=== PATIENT | female | born 1960 | race Native Hawaiian/Other Pacific Islander ===

== ENCOUNTER 2020-04-20 14:00 | Outpatient (RCR) | payer OTHER, SELFPAY ==
--- NOTE | 2020-03-30 15:58 | MHC.PT.PR ---
[facility] [place] [facility] [place] [facility] [place] [facility] [address] [place] [address] [phone] F: [phone] F: [phone] F: [phone] F: [phone] Physical Therapy Progress Note Diagnosis: Internal derangement of R shoulder Date of Surgery: NA Date of Evaluation: 01/06/20 Treatments to Date: 9 Cancellations to Date: 0 No Shows to Date: 0 Subjective: Patient reporting feeling a little better, has a little soreness at the distal humerus. Has received her tens unit and is using appropriately without questions. 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 Reports that repetitive motions aggravate it. She wanted an progress note to be sent to referring MD. We will plan for 4 more visits through March at this time. Patient continues to verbalize that she would like further imaging but would like to continue with PT as she does feel like she is making some progress. Progressed with speed francisco strengthening today. Reporting more neck pain and low back pain now as well, understands that this may also be due to her job. She has bought a tens unit for home use and has been educated on an HEP. PT Plan: Frequency and Duration: The patient will be seen Treatment Plan: Reviewed/ Agreed with Student Documentation: Therapist: Thank you once again for your referral.
--- NOTE | 2020-04-20 16:04 | MHC.PT.DC ---
[facility] [place] Office [place] [facility] [place] Office [address] [phone] F: [phone] F: [phone] F: [phone] F: [phone] Physical Therapy Discharge Report Diagnosis: Internal derangement of R shoulder Date of Surgery: NA Date of Evaluation: 01/06/20 Date of Discharge: 04/20/20 Treatments to Date: 12 Cancellations to Date: 2 No Shows to Date: 0 Discharge Status: Achieved Goals Improved Function Independent with HEP Recommend MD Follow-up Discharge Summary: Patient with improvements in ROM at times. Demos AROM flexion 145, abduction 165, ER 52 degs in 45 degs abduction, IR at 45 degs abduction to 70 degs. Has a harder time with ER and abduction still but no longer has pins/needles or numbness. Continues to have pain and recommending follow up with MD at this time for pain management. 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 DC to HEP at this time with follow up to MD recommended. Has stim unit and HEP for home. Electronically signed by: Radha Chatman PT Please sign and return to therapist. Thank you for your referral.
== END 2020-04-20 16:04 | disposition home or self-care (01) ==
LOC: HO.PTCHIC 14:00
PROVIDERS: PCP Internal Medicine; Visit Provider Orthopaedic Surgery
DX: M24.811 Other specific joint derangements of right shoulder, not elsewhere classified (principal)
CPT/HCPCS: 97014; 97110; 97140

== ENCOUNTER 2022-01-10 12:11 | Outpatient (REF) | payer OTHER, SELFPAY ==
--- NOTE | ~2022-01-10 | XR_ITS ---
EXAMINATION: XR ANKLE, RIGHT XR FOOT, RIGHT CLINICAL INFORMATION: M25.571 - Pain in right ankle and joints of right foot COMPARISON: None TECHNIQUE: 2 views right ankle, 2 views right foot, and a lateral view of the combined right ankle and foot are obtained for a total of 5 views. FINDINGS: No fracture, dislocation, or destructive process. Normal bony mineralization. The malleoli are intact. The ankle mortise is symmetric. Talar dome shows no osteochondral lesion. No visible ankle capsular effusion. The subtalar joint is normal. The retrocalcaneal recess is preserved. There is a bulky posterior calcaneal spur. Midfoot and forefoot show no focal joint narrowing or erosive change. XR/XR ankle RT min 3V IMPRESSION: -Bulky posterior calcaneal spur. -No focal joint narrowing or erosive change.
--- NOTE | ~2022-01-10 | XR_ITS ---
EXAMINATION: XR LUMBAR SPINE XR SACROILIAC JOINTS CLINICAL INFORMATION: Low back pain. COMPARISON: None TECHNIQUE: Lumbar spine is imaged in 6 views including oblique projections. The SI joints are imaged in 3 views. There are a total of 9 views. FINDINGS: There is normal lumbar segmentation with 5 nonrib-bearing lumbar vertebrae of normal height and normal lumbar lordosis. No lumbar vertebral compression, spondylolisthesis, focal disc narrowing, erosive change, or destructive process. There is some mild anterior lower lumbar vertebral spurring. Oblique view show no spondylolysis. The SI joints and sacrum are unremarkable. There is no SI joint or erosive change or ankylosis or diastases. No subchondral sclerosis. XR/XR sacroiliac joint min 3V IMPRESSION: -Mild lower lumbar vertebral spurring. No vertebral compression, spondylolisthesis, or focal disc narrowing. -Unremarkable SI joints.
--- NOTE | ~2022-01-10 | XR_ITS ---
EXAMINATION: XR ANKLE, LEFT XR FOOT, LEFT CLINICAL INFORMATION: M25.572 - Pain in left ankle and joints of left foot COMPARISON: None TECHNIQUE: The left ankle is imaged in 3 views. The left foot is imaged in 3 views. There are a total of 6 views. FINDINGS: Left ankle shows no fracture or dislocation or destructive process. The ankle mortise is symmetric. Talar dome shows no osteochondral lesion. There is no joint narrowing. No visible capsular effusion. There is bulky posterior calcaneal spur. The retrocalcaneal recess is preserved. Left foot shows no fracture or dislocation or destructive process. There is no focal joint narrowing or erosive changes. XR/XR foot LT min 3V IMPRESSION: -Bulky posterior calcaneal spur. -No focal joint narrowing or erosive change.
--- NOTE | ~2022-01-10 | XR_ITS ---
EXAMINATION: XR ANKLE, LEFT XR FOOT, LEFT CLINICAL INFORMATION: M25.572 - Pain in left ankle and joints of left foot COMPARISON: None TECHNIQUE: The left ankle is imaged in 3 views. The left foot is imaged in 3 views. There are a total of 6 views. FINDINGS: Left ankle shows no fracture or dislocation or destructive process. The ankle mortise is symmetric. Talar dome shows no osteochondral lesion. There is no joint narrowing. No visible capsular effusion. There is bulky posterior calcaneal spur. The retrocalcaneal recess is preserved. Left foot shows no fracture or dislocation or destructive process. There is no focal joint narrowing or erosive changes. XR/XR ankle LT min 3V IMPRESSION: -Bulky posterior calcaneal spur. -No focal joint narrowing or erosive change.
--- NOTE | ~2022-01-10 | XR_ITS ---
EXAMINATION: XR LUMBAR SPINE XR SACROILIAC JOINTS CLINICAL INFORMATION: Low back pain. COMPARISON: None TECHNIQUE: Lumbar spine is imaged in 6 views including oblique projections. The SI joints are imaged in 3 views. There are a total of 9 views. FINDINGS: There is normal lumbar segmentation with 5 nonrib-bearing lumbar vertebrae of normal height and normal lumbar lordosis. No lumbar vertebral compression, spondylolisthesis, focal disc narrowing, erosive change, or destructive process. There is some mild anterior lower lumbar vertebral spurring. Oblique view show no spondylolysis. The SI joints and sacrum are unremarkable. There is no SI joint or erosive change or ankylosis or diastases. No subchondral sclerosis. XR/XR lumbar spine 4V min IMPRESSION: -Mild lower lumbar vertebral spurring. No vertebral compression, spondylolisthesis, or focal disc narrowing. -Unremarkable SI joints.
--- NOTE | ~2022-01-10 | XR_ITS ---
EXAMINATION: XR ANKLE, RIGHT XR FOOT, RIGHT CLINICAL INFORMATION: M25.571 - Pain in right ankle and joints of right foot COMPARISON: None TECHNIQUE: 2 views right ankle, 2 views right foot, and a lateral view of the combined right ankle and foot are obtained for a total of 5 views. FINDINGS: No fracture, dislocation, or destructive process. Normal bony mineralization. The malleoli are intact. The ankle mortise is symmetric. Talar dome shows no osteochondral lesion. No visible ankle capsular effusion. The subtalar joint is normal. The retrocalcaneal recess is preserved. There is a bulky posterior calcaneal spur. Midfoot and forefoot show no focal joint narrowing or erosive change. XR/XR foot RT min 3V IMPRESSION: -Bulky posterior calcaneal spur. -No focal joint narrowing or erosive change.
[2022-01-10 12:45] LABS: MANUAL DIFF FLAG NO
[2022-01-10 13:22] LABS: Basophils Percent Auto 0.3 % (0-2); Eosinophils Absolute Auto 0.1 X10*3/uL (0.0-0.4); Hemoglobin 13.6 g/dl (12.0-16.0); Imm Gran Abs Auto 0.08 X10*3/uL (0.00-0.03); Imm Gran Pct Auto 1.4 % (0.0-0.4); Lymphocytes Absolute Auto 1.6 X10*3/uL (1.2-4.9); Lymphocytes Percent Auto 26.9 % (20-40); Mean Corpuscular HGB Conc 32.4 g/dl (31.0-35.0); Mean Corpuscular Hemoglobin 29.8 pg (27.0-33.0); Mean Corpuscular Volume 92.1 fL (80.0-98.0); Mean Platelet Volume 8.9 fL (9.4-12.3); Monocytes Absolute Auto 0.7 X10*3/uL (0.1-1.2); Monocytes Percent Auto 11.3 % (2-11); Neutrophils Absolute Auto 3.5 x10*3/uL (2.0-8.3); Neutrophils Percent Auto 59.1 % (45-73); Platelet Count 354 X10*3/uL (160-400); Red Blood Count 4.56 X10*6/uL (4.20-5.50); Red Cell Distribution Width 12.9 % (11.0-16.0); White Blood Count 5.8 X10*3/uL (4.8-10.8)
[2022-01-10 13:46] LABS: Alanine Aminotransferase 24 U/L (0-31); Albumin Level 4.3 g/dL (3.5-5.0); Alkaline Phosphatase 77 U/L (39-117); Anion Gap 17 (12-20); Aspartate Amino Transferase 24 U/L (5-31); Bilirubin Total 0.3 mg/dL (0.0-1.0); Blood Urea Nitrogen 12 mg/dL (9-16); C Reactive Protein 2.18 mg/dL (< or = 0.50); Calcium 9.5 mg/dL (8.4-10.2); Carbon Dioxide 27 mmol/L (22-29); Chloride 102 mmol/L (96-108); Estimated Glomerular Filt Rate > 60; Glucose Random 94 mg/dL (60-115); Potassium 4.1 mmol/L (3.3-5.1); Sodium 142 mmol/L (135-145); Total Protein 7.7 g/dL (6.5-8.0); Uric Acid 7.4 mg/dL (2.4-5.7)
[2022-01-10 14:06] LABS: Erythrocyte Sedimentation Rate 78 MM/HR (0-20)
[2022-01-10 14:16] LABS: Rheumatoid Factor < 15.0 IU/mL (<15.0)
[2022-01-11 05:22] LABS: HBS Num1 0.84 mIU/mL (0-7.99); HBc Num1 0.56 S/CO (0.00-0.79); HBsAGNum1 0.21 S/CO (0.00-0.99); Hepatitis A Antibody IgM 0.19 Index (0-0.79); Hepatitis B Core Antibody Nonreactive (Nonreactive); Hepatitis B Surface Antigen Negative (Negative); ~HepC Num1 0.08 S/CO (0.00-0.79); ~Hepatitis A Antibody IgM Nonreactive (Nonreactive); ~Hepatitis B Surface Antibody NONREACTIVE (Nonreactive); ~Hepatitis C Antibody Nonreactive (Nonreactive)
[2022-01-11 12:18] LABS: Anti DNA DS Antibody 1 IU/mL
[2022-01-11 16:52] LABS: Complement C3 167 mg/dL (83-193)
[2022-01-12 13:32] LABS: Anti Nuclear Antibody Screen NEGATIVE (NEGATIVE)
[2022-01-12 16:32] LABS: Cyclic Citrullinated Peptide 25 UNITS
[2022-01-13 02:56] LABS: TS Negative Control Passed; TS Panel A 0; TS Panel B 0; TS Positive Control Passed; TSpotTB Negative (Negative)
[2022-01-16 11:56] LABS: HLA B27 Negative (Negative)
== END 2022-01-10 12:12 | disposition home or self-care (01) ==
LOC: HO.LAB 12:11
PROVIDERS: PCP Internal Medicine; Visit Provider Student in an Organized Health Care Education/Training Program
DX: Z11.7 Encounter for testing for latent tuberculosis infection (principal); Z11.59 Encounter for screening for other viral diseases; Z51.81 Encounter for therapeutic drug level monitoring; Z79.899 Other long term (current) drug therapy; L40.50 Arthropathic psoriasis, unspecified; M25.542 Pain in joints of left hand; M54.50 Low back pain, unspecified; M25.571 Pain in right ankle and joints of right foot; M25.572 Pain in left ankle and joints of left foot
CPT/HCPCS: 36415; 72110; 72202; 73610; 73630; 80053; 84550; 85025; 85652; 86038; 86039; 86140; 86160; 86200; 86225; 86431; 86481; 86704; 86706; 86709; 86803; 86812; 87340; 99202

== ENCOUNTER → 2022-01-31 11:12 | Outpatient (BNVA) | payer OTHER, SELFPAY | PROVIDERS: PCP Internal Medicine; Visit Provider Student in an Organized Health Care Education/Training Program | DX: L40.50 Arthropathic psoriasis, unspecified (principal); M54.50 Low back pain, unspecified; G89.29 Other chronic pain; R76.8 Other specified abnormal immunological findings in serum | CPT/HCPCS: 99212 ==

== ENCOUNTER 2022-05-16 14:18 | Outpatient (REF) | payer OTHER, SELFPAY ==
[2022-05-16 14:38] LABS: MANUAL DIFF FLAG NO
[2022-05-16 15:01] LABS: Basophils Absolute Auto 0.1 X10*3/uL (0.0-0.2); Basophils Percent Auto 0.6 % (0-2); Eosinophils Absolute Auto 0.3 X10*3/uL (0.0-0.4); Eosinophils Percent Auto 2.7 % (0-4); Hematocrit 41.9 % (37.0-47.0); Hemoglobin 13.7 g/dl (12.0-16.0); Imm Gran Abs Auto 0.09 X10*3/uL (0.00-0.03); Imm Gran Pct Auto 0.8 % (0.0-0.4); Lymphocytes Absolute Auto 3.2 X10*3/uL (1.2-4.9); Lymphocytes Percent Auto 29.9 % (20-40); Mean Corpuscular HGB Conc 32.7 g/dl (31.0-35.0); Mean Corpuscular Hemoglobin 30.3 pg (27.0-33.0); Mean Corpuscular Volume 92.7 fL (80.0-98.0); Mean Platelet Volume 9.3 fL (9.4-12.3); Monocytes Absolute Auto 0.6 X10*3/uL (0.1-1.2); Monocytes Percent Auto 5.5 % (2-11); Neutrophils Absolute Auto 6.6 x10*3/uL (2.0-8.3); Neutrophils Percent Auto 60.5 % (45-73); Platelet Count 346 X10*3/uL (160-400); Red Blood Count 4.52 X10*6/uL (4.20-5.50); Red Cell Distribution Width 13.5 % (11.0-16.0); White Blood Count 10.8 X10*3/uL (4.8-10.8)
[2022-05-16 15:50] LABS: Erythrocyte Sedimentation Rate 34 MM/HR (0-20)
[2022-05-16 16:09] LABS: Alanine Aminotransferase 28 U/L (0-31); Albumin Level 4.1 g/dL (3.5-5.0); Alkaline Phosphatase 73 U/L (39-117); Anion Gap 15 (12-20); Aspartate Amino Transferase 27 U/L (5-31); Bilirubin Total 0.4 mg/dL (0.0-1.0); Blood Urea Nitrogen 16 mg/dL (9-16); C Reactive Protein 0.58 mg/dL (< or = 0.50); Calcium 9.2 mg/dL (8.4-10.2); Carbon Dioxide 29 mmol/L (22-29); Chloride 103 mmol/L (96-108); Estimated Glomerular Filt Rate > 60; Glucose Random 115 mg/dL (60-115); Magnesium 1.8 mg/dL (1.6-2.6); Potassium 4.5 mmol/L (3.3-5.1); Sodium 142 mmol/L (135-145)
== END 2022-05-16 14:19 | disposition home or self-care (01) ==
LOC: HO.LAB 14:18
PROVIDERS: PCP Internal Medicine; Visit Provider Student in an Organized Health Care Education/Training Program
DX: L40.50 Arthropathic psoriasis, unspecified (principal)
CPT/HCPCS: 36415; 80053; 83735; 85025; 85652; 86140

== ENCOUNTER → 2022-05-23 10:45 | Outpatient (BNVA) | payer OTHER, SELFPAY | PROVIDERS: PCP Internal Medicine; Visit Provider Student in an Organized Health Care Education/Training Program | DX: L40.50 Arthropathic psoriasis, unspecified (principal); M54.50 Low back pain, unspecified; R76.8 Other specified abnormal immunological findings in serum; G89.29 Other chronic pain; Z79.631 Long term (current) use of antimetabolite agent | CPT/HCPCS: 99212 ==

== ENCOUNTER 2022-06-28 15:32 | Outpatient (REF) | payer OTHER, SELFPAY ==
[2022-06-28 16:17] LABS: MANUAL DIFF FLAG NO
[2022-06-28 16:30] LABS: Basophils Absolute Auto 0.1 X10*3/uL (0.0-0.2); Basophils Percent Auto 0.4 % (0-2); Eosinophils Absolute Auto 0.2 X10*3/uL (0.0-0.4); Hematocrit 41.2 % (37.0-47.0); Imm Gran Abs Auto 0.11 X10*3/uL (0.00-0.03); Imm Gran Pct Auto 0.7 % (0.0-0.4); Lymphocytes Absolute Auto 3.4 X10*3/uL (1.2-4.9); Lymphocytes Percent Auto 22.7 % (20-40); Mean Corpuscular Hemoglobin 30.6 pg (27.0-33.0); Mean Corpuscular Volume 90.2 fL (80.0-98.0); Mean Platelet Volume 8.7 fL (9.4-12.3); Monocytes Absolute Auto 0.9 X10*3/uL (0.1-1.2); Monocytes Percent Auto 6.1 % (2-11); Neutrophils Absolute Auto 10.3 x10*3/uL (2.0-8.3); Neutrophils Percent Auto 69.1 % (45-73); Platelet Count 440 X10*3/uL (160-400); Red Blood Count 4.57 X10*6/uL (4.20-5.50); Red Cell Distribution Width 14.2 % (11.0-16.0)
[2022-06-28 17:05] LABS: Alanine Aminotransferase 20 U/L (0-31); Albumin Level 4.1 g/dL (3.5-5.0); Alkaline Phosphatase 74 U/L (39-117); Anion Gap 15 (12-20); Aspartate Amino Transferase 19 U/L (5-31); Bilirubin Total 0.4 mg/dL (0.0-1.0); Blood Urea Nitrogen 11 mg/dL (9-16); C Reactive Protein 0.89 mg/dL (< or = 0.50); Calcium 9.3 mg/dL (8.4-10.2); Carbon Dioxide 26 mmol/L (22-29); Chloride 104 mmol/L (96-108); Estimated Glomerular Filt Rate > 60; Glucose Random 105 mg/dL (60-115); Potassium 3.6 mmol/L (3.3-5.1); Sodium 141 mmol/L (135-145); Total Protein 6.7 g/dL (6.5-8.0)
[2022-06-28 17:08] LABS: Erythrocyte Sedimentation Rate 46 MM/HR (0-20)
== END 2022-06-28 15:33 | disposition home or self-care (01) ==
LOC: HO.LAB 15:32
PROVIDERS: PCP Student in an Organized Health Care Education/Training Program; Visit Provider Student in an Organized Health Care Education/Training Program
DX: Z79.631 Long term (current) use of antimetabolite agent (principal)
CPT/HCPCS: 36415; 80053; 85025; 85652; 86140

== ENCOUNTER → 2022-07-27 10:48 | Outpatient (BNVA) | payer OTHER, SELFPAY | PROVIDERS: PCP Family Medicine; Visit Provider Student in an Organized Health Care Education/Training Program | DX: L40.50 Arthropathic psoriasis, unspecified (principal); M54.50 Low back pain, unspecified; R76.8 Other specified abnormal immunological findings in serum; R21 Rash and other nonspecific skin eruption; R07.81 Pleurodynia; G89.29 Other chronic pain; Z79.631 Long term (current) use of antimetabolite agent | CPT/HCPCS: 99212 ==

== ENCOUNTER 2023-01-08 13:20 | Outpatient (REF) | payer OTHER, SELFPAY ==
[2023-01-08 13:53] LABS: MANUAL DIFF FLAG NO
[2023-01-08 14:41] LABS: Basophils Absolute Auto 0.1 X10*3/uL (0.0-0.2); Basophils Percent Auto 0.5 % (0-2); Eosinophils Absolute Auto 0.2 X10*3/uL (0.0-0.4); Eosinophils Percent Auto 1.1 % (0-4); Hematocrit 39.5 % (37.0-47.0); Hemoglobin 13.3 g/dl (12.0-16.0); Imm Gran Abs Auto 0.21 X10*3/uL (0.00-0.03); Imm Gran Pct Auto 1.4 % (0.0-0.4); Lymphocytes Absolute Auto 3.7 X10*3/uL (1.2-4.9); Lymphocytes Percent Auto 24.6 % (20-40); Mean Corpuscular HGB Conc 33.7 g/dl (31.0-35.0); Mean Corpuscular Hemoglobin 32.1 pg (27.0-33.0); Mean Corpuscular Volume 95.4 fL (80.0-98.0); Monocytes Absolute Auto 0.8 X10*3/uL (0.1-1.2); Monocytes Percent Auto 5.4 % (2-11); Platelet Count 510 X10*3/uL (160-400); Red Blood Count 4.14 X10*6/uL (4.20-5.50); Red Cell Distribution Width 14.2 % (11.0-16.0); White Blood Count 14.9 X10*3/uL (4.8-10.8)
[2023-01-08 15:11] LABS: Alanine Aminotransferase 23 U/L (0-31); Albumin Level 4.1 g/dL (3.5-5.0); Alkaline Phosphatase 68 U/L (39-117); Anion Gap 12 (12-20); Aspartate Amino Transferase 20 U/L (5-31); Bilirubin Total 0.2 mg/dL (0.0-1.0); Blood Urea Nitrogen 12 mg/dL (9-16); C Reactive Protein 0.81 mg/dL (< or = 0.50); Calcium 9.6 mg/dL (8.4-10.2); Carbon Dioxide 30 mmol/L (22-29); Chloride 100 mmol/L (96-108); Estimated Glomerular Filt Rate > 60; Glucose Random 99 mg/dL (60-115); Potassium 3.1 mmol/L (3.3-5.1); Sodium 139 mmol/L (135-145); Total Protein 7.3 g/dL (6.5-8.0)
[2023-01-08 15:25] LABS: Erythrocyte Sedimentation Rate 60 MM/HR (0-20)
== END 2023-01-08 13:21 | disposition home or self-care (01) ==
LOC: HO.LAB 13:20
PROVIDERS: Visit Provider Student in an Organized Health Care Education/Training Program
DX: Z79.631 Long term (current) use of antimetabolite agent (principal)
CPT/HCPCS: 36415; 80053; 85025; 85652; 86140

== ENCOUNTER 2023-01-10 11:38 | Outpatient (REF) | payer OTHER, SELFPAY | END 2023-01-10 11:39 | disposition home or self-care (01) | LOC: HO.LAB 11:38 | PROVIDERS: PCP Family Medicine; Visit Provider Student in an Organized Health Care Education/Training Program | DX: L40.50 Arthropathic psoriasis, unspecified (principal); R76.8 Other specified abnormal immunological findings in serum; R22.1 Localized swelling, mass and lump, neck; Z79.631 Long term (current) use of antimetabolite agent; Z79.899 Other long term (current) drug therapy | CPT/HCPCS: 80145; 83520; 99212 ==

== ENCOUNTER 2023-01-10 11:38 | Outpatient (AMB) | payer OTHER, SELFPAY ==
--- NOTE | 2023-01-10 11:41 | A.OFFVIS_ITS ---
Intake Vital Signs 3 01/10/23 11:42 Height 5 ft 4 in Weight 249 lb 1.957 oz BMI 42.8 BP 126/78 Blood Pressure Location Rt brachial Position Sitting Temp 98.1 F Temp Source Skin Intake Visit Reasons: PsA Intake Note: Pt seen today for PsA follow up. Reports intermittent joint pain, using trulicity for weight loss Director Television Required: No Accompanied by: Self / Same As Patient Allergies No Known Allergies Allergy (Unverified 01/10/23 11:44) Medication List - Last Reconciled 01/10/23 by Dain Escudero MD adalimumab (Humira Pen) 40 mg (0.8 mL) subcut QWEEK albuterol sulfate 90 mcg/actuation (ProAir HFA) inhalation atorvastatin 20 mg PO DAILY cyclobenzaprine 5 mg PO BEDTIME PRN dulaglutide (Trulicity) 1.5 mg subcut QWEEK folic acid 1 mg PO DAILY hydrochlorothiazide 12.5 mg PO DAILY hydrochlorothiazide 25 mg PO DAILY losartan 25 mg PO DAILY methotrexate sodium 15 mg (6 x 2.5 mg) PO QWEEK nicotine 1 patch transdermal DAILY trospium ER 60 mg PO DAILY HPI HPI Comments 2 History of Present Illness0 Details 62-year-old female with psoriasis and ps oriatic arthritis presents for follow-up. She has been on Humira weekly since August, continues on methotrexate 6 tabs weekly as prescribed. States that she was doing well overall until 2-3 days ago when she developed pain and swelling of her right 4th toe. Denies any trauma or injury to the toe. In early November she developed erythema and warmth of her right leg. She was evaluated by her PCP and had another course of antibiotics for suspected cellulitis. This has been a recurrent problem. She has an appointment with vascular to do vascular studies of her legs. No psoriasis rashes currently.. She started Trulicity recently and has lost some weight. States that she has been feeling some swelling in her upper chest and bottom of her neck. She has a follow-up appointment soon with her PCP Initial history: This is a 61-year-old female with a past medical history of psoriasis (almost all her life) and psoriatic arthritis diagnosed in 2013, dyslipidemia who presents for evaluation of psoriatic arthritis. The condition started in 2013. She used to see , she was on sulfasalazine which failed, she was then started on Humira and was on it for a few years then it stopped working. She was then switched to Cosentyx and was on it for about 1 year then it stopped working. She was switched to Tremfya last year and was working well for her skin and joints. However her jewel blocker and sawyer changed and she is due to see a new jewel blocker and sawyer today. Her last dose of Tremfya was in October 2021. Currently patient states that she has migrating joint pains from her right index finger to her left index finger and sometimes her thumb. 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 She has low back pain worse with any activity. Back pain is worse in the morning associated with morning stiffness lasting 3-4 hours. Does not wake patient up from sleep. She takes Tylenol almost every day for generalized pain which provided some relief. She mentions having recurrent cellulitis of her lower extremities, she was prescribed cephalexin by Dermatology, has been on it for 3 months and hers cellulitis resolved PFSH Medical History Recurrent cellulitis of lower extremity Dyslipidemia Psoriasis Psoriatic arthritis Surgical History Hx of removal of cyst H/O breast biopsy Hx of cholecystectomy Family History Father No problems noted. 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 Review of Systems ENT Details: Swelling in her lower neck, upper chest Musc Reports arthralgias, Reports joint swelling and Reports stiffness Physical Exam Vital Signs: Last Vital Signs Temp 98.1 F 01/10/23 11:42 BP 126/78 01/10/23 11:42 BMI result Body Mass Index 42.8 Const General: cooperative, healthy appearing, comfortable and no acute distress Nutritional Appearance: obese morbidly obese Orientation/consciousness: patient oriented x3 Limitations: no limitations HEENT Head: Yes normocephalic and Yes atraumatic Mouth: Normal oral and palatal mucosa present Resp Effort & Inspection: normal respiratory effort and able to speak in complete sentences Auscultation: clear to auscultation bilaterally Cardio Rate: regular rate Rhythm: regular rhythm Heart sounds: S1 normal heart sound present and S2 normal heart sound present GI Inspection: No distended Palpation (GI): Soft to palpation and nontender Skin Other: No psoriasis patches today Neuro General: patient oriented x3 Extrem Other: Right 4th toe dactylitis No synovitis otherwise Results Reviewed Results Reviewed: Left knee MRI 02/10 Impression: findings consistent with prior lateral collateral ligament complex injury with persistent thickening and mildly increased signal intensity in proximal fibular collateral ligament. Minimal truncation of the free edge of the posterior horn medial meniscus. Small effusion. Small Schmidt's cyst. Grade 2 chondromalacia patella Assessment & Plan Assessment & Plan (1) Psoriatic arthritis: Comment: dx 2013 failed SSZ 2ry nonresponse to humira Failed Cosentyx Tremfya since 2020, then discontinued when her jewel blocker and sawyer changed Humira restarted 01/2022 advanced to weekly 09/12 MTX added 05/15 Code(s): L40.50 - Arthropathic psoriasis, unspecified Plan: 62-year-old female with psoriasis and psoriatic arthritis presents for follow- up. Patient has been doing well with no inflammatory arthritis until 2 days ago. She is on Humira 40 mg once weekly and methotrexate 15 mg once weekly. Over the last 2 days she has developed dactylitis of her right 4th toe. Will prescribe prednisone taper. Will check anti adalimumab antibodies. If patient is resistant to adalimumab will have to switch DMARDs Continue Humira 40 mg every other week and methotrexate 15 mg weekly and folic acid daily Labs before next visit in 3 months (2) Psoriasis: Code(s): L40.9 - Psoriasis, unspecified Plan: Psoriasis is well controlled on Humira 40 minute weekly and methotrexate 15 mg weekly (3) Cyclic citrullinated peptide (CCP) antibody positive: Code(s): R76.8 - Other specified abnormal immunological findings in serum Plan: Low titer positive anti CCP. However patient's inflammatory arthritis are more consistent was psoriatic arthritis with dactylitis. This can be due to long history of smoking. She quit smoking about 9 months ago. (4) On methotrexate therapy: Code(s): Z79.631 - [facility] (current) use of antimetabolite agent Plan: Side effects of methotrexate were discussed with the patient in detail including oral ulcers, elevated LFTs, abdominal discomfort, and possible pancytopenia is. Will monitor patient for side effects with frequent lab work. Advised patient to take folic acid daily to prevent complications of methotrexate. (5) Lump in neck: Code(s): R22.1 - Localized swelling, mass and lump, neck Plan: Follow-up with PCP Plan I spent 46 minutes reviewing patient's chart, evaluating patient, ordering diagnostic workup, counseling patient and documenting in the chart Orders: Orders 2 Complete Blood Count Auto Diff 3 Months L40.50 - Arthropathic psoriasis, unspecified Other Ref Test - [facility] Today Z51.81 - Encounter for therapeutic drug level monitoring, Z79.899 - Other [facility] (current) drug therapy Comprehensive Met. Panel 3 Months L40.50 - Arthropathic psoriasis, unspecified C Reactive Protein 3 Months L40.50 - Arthropathic psoriasis, unspecified Erythrocyte Sedimentation Rate 3 Months L40.50 - Arthropathic psoriasis, unspecified Medications: New 2 prednisone 10 mg PO DAILY 21 tabs 0RF Coding Level of Care Code Est Pt Level 5 (36891) Diagnoses Psoriatic arthritis L40.50 Psoriasis L40.9 Cyclic citrullinated peptide (CCP) antibody positive R76.8 On methotrexate therapy Z79.631 Lump in neck R22.1
[2023-01-10 11:42] VITALS: BP 126/78; TEMP 36.7; BMI 42.8
== END 2023-01-10 12:15 | disposition home or self-care (01) ==
PROVIDERS: PCP Family Medicine; Visit Provider Student in an Organized Health Care Education/Training Program
DX: L40.50 Arthropathic psoriasis, unspecified (principal); L40.9 Psoriasis, unspecified; R76.8 Other specified abnormal immunological findings in serum; Z79.631 Long term (current) use of antimetabolite agent; R22.1 Localized swelling, mass and lump, neck
CPT/HCPCS: 99215

== ENCOUNTER 2023-04-04 12:37 | Outpatient (REF) | payer OTHER, SELFPAY ==
[2023-04-04 12:45] LABS: MANUAL DIFF FLAG NO
[2023-04-04 13:36] LABS: Basophils Absolute Auto 0.1 X10*3/uL (0.0-0.2); Basophils Percent Auto 0.4 % (0-2); Eosinophils Absolute Auto 0.1 X10*3/uL (0.0-0.4); Hematocrit 41.5 % (37.0-47.0); Hemoglobin 13.5 g/dl (12.0-16.0); Imm Gran Abs Auto 0.12 X10*3/uL (0.00-0.03); Imm Gran Pct Auto 0.9 % (0.0-0.4); Lymphocytes Absolute Auto 3.3 X10*3/uL (1.2-4.9); Lymphocytes Percent Auto 23.6 % (20-40); Mean Corpuscular HGB Conc 32.5 g/dl (31.0-35.0); Mean Corpuscular Hemoglobin 31.9 pg (27.0-33.0); Mean Corpuscular Volume 98.1 fL (80.0-98.0); Monocytes Absolute Auto 0.7 X10*3/uL (0.1-1.2); Monocytes Percent Auto 5.2 % (2-11); Neutrophils Absolute Auto 9.6 x10*3/uL (2.0-8.3); Neutrophils Percent Auto 68.9 % (45-73); Platelet Count 490 X10*3/uL (160-400); Red Blood Count 4.23 X10*6/uL (4.20-5.50); Red Cell Distribution Width 14.1 % (11.0-16.0)
[2023-04-04 14:08] LABS: Alanine Aminotransferase 17 U/L (0-31); Albumin Level 4.1 g/dL (3.5-5.0); Alkaline Phosphatase 76 U/L (39-117); Anion Gap 13 (12-20); Aspartate Amino Transferase 18 U/L (5-31); Bilirubin Total 0.4 mg/dL (0.0-1.0); Blood Urea Nitrogen 14 mg/dL (9-16); Calcium 9.9 mg/dL (8.4-10.2); Carbon Dioxide 27 mmol/L (22-29); Chloride 106 mmol/L (96-108); Estimated Glomerular Filt Rate > 60; Glucose Random 89 mg/dL (60-115); Potassium 4.1 mmol/L (3.3-5.1); Sodium 142 mmol/L (135-145); Total Protein 7.7 g/dL (6.5-8.0)
[2023-04-04 14:16] LABS: Erythrocyte Sedimentation Rate 70 MM/HR (0-20)
== END 2023-04-04 12:38 | disposition home or self-care (01) ==
LOC: HO.LAB 12:37
PROVIDERS: PCP Family Medicine; Visit Provider Student in an Organized Health Care Education/Training Program
DX: L40.50 Arthropathic psoriasis, unspecified (principal)
CPT/HCPCS: 36415; 80053; 85025; 85652; 86140

== ENCOUNTER 2023-04-10 09:45 | Outpatient (AMB) | payer OTHER, SELFPAY ==
--- NOTE | 2023-04-10 09:53 | A.OFFVIS_ITS ---
Intake Vital Signs 04/10/23 09:55 Height 5 ft 4 in Weight 240 lb 4.862 oz BMI 41.2 BP 124/90 H Blood Pressure Location Lt brachial Position Sitting Pulse 91 Pulse Source Pulse Oximeter Temp 97 F Temp Source Skin Pulse Oximetry (%) 95 Oxygen Delivery Method Room Air Intake Visit Reasons: PsA Intake Note: Pt last seen 01/10/23, presents today for follow up and test results. Continues with Humira, MTX, and folic acid. Youth Accommodation Support Worker Required: No Accompanied by: Self / Same As Patient Allergies No Known Allergies Allergy (Unverified 04/10/23 09:58) Medication List - Last Reconciled 04/10/23 by Dain Escudero MD albuterol sulfate 90 mcg/actuation (ProAir HFA) inhalation atorvastatin 20 mg PO DAILY clotrimazole 1% appl topical DAILY clotrimazole-betamethasone 1-0.05 % appl topical DAILY cyclobenzaprine 5 mg PO BEDTIME PRN dulaglutide (Trulicity) 1.5 mg subcut QWEEK folic acid 1 mg PO DAILY Humira Pen (adalimumab) 40 mg (0.8 mL) subcut QWEEK NS losartan 25 mg PO DAILY methotrexate sodium 15 mg (6 x 2.5 mg) PO QWEEK HPI HPI Comments History of Present Illness Details 62-year-old female with psoriasis and ps oriatic arthritis presents for follow-up. On Humira weekly, methotrexate 15 mg weekly and folic acid 1 mg daily. She states that she is doing well overall in terms of her arthritis except for 2-3 days ago when she started having left 4th finger tip pain redness and swelling. Denies any other joint pain. She states that she has been having a flare-up of her bilateral dodd erythema and pain. She states that she was recently evaluated by a vein specialist and was prescribed topical steroid and antifungal cream. He was also asked to start wearing compression boots. She states that she is in the process of getting a vein study. Initial history: This is a 61-year-old female with a past medical history of psoriasis (almost all her life) and psoriatic arthritis diagnosed in 2013, dyslipidemia who presents for evaluation of psoriatic arthritis. The condition started in 2013. She used to see , she was on sulfasalazine which failed, she was then started on Humira and was on it for a few years then it stopped working. She was then switched to Cosentyx and was on it for about 1 year then it stopped working. She was switched to Tremfya last year and was working well for her skin and joints. 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 Her last dose of Tremfya was in October 2021. Currently patient states that she has migrating joint pains from her right index finger to her left index finger and sometimes her thumb. 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 She has low back pain worse with any activity. Back pain is worse in the morning associated with morning stiffness lasting 3-4 hours. Does not wake patient up from sleep. She takes Tylenol almost every day for generalized pain which provided some relief. She mentions having recurrent cellulitis of her lower extremities, she was prescribed cephalexin by Dermatology, has been on it for 3 months and hers cellulitis resolved [facility] Medical History (Updated 04/10/23 @ 10:24 by Dain Escudero MD) Recurrent cellulitis of lower extremity Dyslipidemia Psoriasis Psoriatic arthritis Surgical History Hx of removal of cyst H/O breast biopsy Hx of cholecystectomy Family History Father No problems noted. 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 Review of Systems Musc Reports arthralgias, Reports joint swelling and Reports stiffness Skin/Breast Reports erythema and Reports rash Physical Exam Vital Signs: Last Vital Signs Temp 97 F 04/10/23 09:55 Pulse 91 04/10/23 09:55 Pulse Ox 95 04/10/23 09:55 Oxygen Delivery Method Room Air 04/10/23 09:55 BMI result Body Mass Index 41.2 Const General: cooperative, healthy appearing, comfortable and no acute distress Nutritional Appearance: obese morbidly obese Orientation/consciousness: patient oriented x3 Limitations: no limitations HEENT Head: Yes normocephalic and Yes atraumatic Mouth: Normal oral and palatal mucosa present Resp Effort & Inspection: normal respiratory effort and able to speak in complete sentences Cardio Rate: regular rate Rhythm: regular rhythm Heart sounds: S1 normal heart sound present and S2 normal heart sound present GI Inspection: No distended Palpation (GI): Soft to palpation and nontender Skin Other: No psoriasis patches today Mild erythema and warmth of the anteromedial aspect of both shins Neuro General: patient oriented x3 Extrem Other: Mild swelling erythema and minimal tenderness of left 4th digital tip No active synovitis otherwise Results Reviewed Results Reviewed: Left knee MRI 02/10 Impression: findings consistent with prior lateral collateral ligament complex injury with persistent thickening and mildly increased signal intensity in proximal fibular collateral ligament. Minimal truncation of the free edge of the posterior horn medial meniscus. Small effusion. Small Schmidt's cyst. Grade 2 chondromalacia patella Assessment & Plan Assessment & Plan (1) Psoriatic arthritis: Comment: dx 2013 failed SSZ 2ry nonresponse to humira Failed Cosentyx Tremfya since 2020, then discontinued when her press shop supervisor changed Humira restarted 01/2022 advanced to weekly 09/12 MTX added 05/15 Code(s): L40.50 - Arthropathic psoriasis, unspecified Plan: 62-year-old female with psoriasis and psoriatic arthritis presents for follow- up. on Humira 40 mg once weekly and methotrexate 15 mg once weekly. Has been doing well in terms of her inflammatory arthritis until about 2 days ago when she started having swelling and erythema of left digital tip. Increase methotrexate to 20 mg weekly, advised patient to split the dose Continue Humira 40 mg weekly and folic acid 1 mg daily Labs before next visit in 3 months (2) Psoriasis: Code(s): L40.9 - Psoriasis, unspecified Plan: Psoriasis is well controlled on current regimen (3) Cyclic citrullinated peptide (CCP) antibody positive: Code(s): R76.8 - Other specified abnormal immunological findings in serum Plan: Low titer positive anti CCP. However patient's inflammatory arthritis are more consistent was psoriatic arthritis with dactylitis. This can be due to long history of smoking. She quit smoking about 11/2022. 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 Advised patient to use her compression stockings regularly. She is currently following up with a vein specialist I prescribed cephalexin course (6) Immunization counseling: Code(s): Z71.85 - Encounter for immunization safety counseling Plan: Patient received flu vaccine for this season advised patient to get the new COVID booster and hold methotrexate 2 doses afterwards Plan I spent 46 minutes reviewing patient's chart, evaluating patient, ordering diagnostic workup, counseling patient and documenting in the chart Orders: Orders Comprehensive Met. Panel 3 Months Z79.631 - professor of biological sciences (current) use of antimetabolite agent C Reactive Protein 3 Months Z79.631 - professor of biological sciences (current) use of antimetabolite agent Erythrocyte Sedimentation Rate 3 Months Z79.631 - professor of biological sciences (current) use of antimetabolite agent Hepatitis A,B,C Profile 3 Months Z11.59 - Encounter for screening for other viral diseases Complete Blood Count Auto Diff 3 Months Z79.631 - [facility] (current) use of antimetabolite agent T Spot TB 3 Months Z11.7 - Encounter for testing for latent tuberculosis infection Medications: Changed From methotrexate sodium 15 mg (6 x 2.5 mg) PO QWEEK 48 tabs 0RF L40.50 - Arthropathic psoriasis, unspecified To methotrexate sodium 20 mg (8 x 2.5 mg) PO QWEEK 96 tabs 0RF L40.50 - Arthropathic psoriasis, unspecified Refilled cephalexin 500 mg PO BID 14 tabs 0RF NS folic acid 1 mg PO DAILY 90 tabs 1RF Coding Level of Care Code Est Pt Level 5 (69165) Diagnoses Psoriatic arthritis L40.50 Psoriasis L40.9 Cyclic citrullinated peptide (CCP) antibody positive R76.8 On methotrexate therapy Z79.631 Recurrent cellulitis of lower extremity L03.119 Immunization counseling Z71.85
[2023-04-10 09:55] VITALS: BP 124/90; PULSE 91; TEMP 36.1; O2SAT 95; BMI 41.2
== END 2023-04-10 10:18 | disposition home or self-care (01) ==
PROVIDERS: PCP Family Medicine; Visit Provider Student in an Organized Health Care Education/Training Program
DX: L40.50 Arthropathic psoriasis, unspecified (principal); L40.9 Psoriasis, unspecified; R76.8 Other specified abnormal immunological findings in serum; Z79.631 Long term (current) use of antimetabolite agent; L03.119 Cellulitis of unspecified part of limb; Z71.85 Encounter for immunization safety counseling
CPT/HCPCS: 99215

== ENCOUNTER → 2023-04-10 09:45 | Outpatient (BNVA) | payer OTHER, SELFPAY | PROVIDERS: PCP Family Medicine; Visit Provider Student in an Organized Health Care Education/Training Program | DX: L40.50 Arthropathic psoriasis, unspecified (principal); L40.9 Psoriasis, unspecified; L03.119 Cellulitis of unspecified part of limb; R76.8 Other specified abnormal immunological findings in serum; Z79.631 Long term (current) use of antimetabolite agent; Z79.899 Other long term (current) drug therapy | CPT/HCPCS: 99212 ==

== ENCOUNTER 2023-07-04 06:37 | Outpatient (REF) | payer OTHER, SELFPAY ==
[2023-07-04 11:33] LABS: MANUAL DIFF FLAG NO
[2023-07-04 11:46] LABS: Basophils Percent Auto 0.3 % (0-2); Eosinophils Absolute Auto 0.2 X10*3/uL (0.0-0.4); Eosinophils Percent Auto 1.8 % (0-4); Hematocrit 38.4 % (37.0-47.0); Hemoglobin 12.9 g/dl (12.0-16.0); Imm Gran Abs Auto 0.08 X10*3/uL (0.00-0.03); Imm Gran Pct Auto 0.8 % (0.0-0.4); Lymphocytes Absolute Auto 3.3 X10*3/uL (1.2-4.9); Mean Corpuscular HGB Conc 33.6 g/dl (31.0-35.0); Mean Corpuscular Hemoglobin 31.5 pg (27.0-33.0); Mean Corpuscular Volume 93.9 fL (80.0-98.0); Mean Platelet Volume 9.3 fL (9.4-12.3); Monocytes Absolute Auto 0.8 X10*3/uL (0.1-1.2); Monocytes Percent Auto 7.6 % (2-11); Neutrophils Absolute Auto 6.2 x10*3/uL (2.0-8.3); Neutrophils Percent Auto 58.5 % (45-73); Platelet Count 436 X10*3/uL (160-400); Red Blood Count 4.09 X10*6/uL (4.20-5.50); Red Cell Distribution Width 14.6 % (11.0-16.0); White Blood Count 10.6 X10*3/uL (4.8-10.8)
[2023-07-04 12:12] LABS: Alanine Aminotransferase 25 U/L (0-31); Albumin Level 3.9 g/dL (3.5-5.0); Alkaline Phosphatase 76 U/L (39-117); Anion Gap 10 (12-20); Aspartate Amino Transferase 21 U/L (5-31); Bilirubin Total 0.3 mg/dL (0.0-1.0); Blood Urea Nitrogen 12 mg/dL (9-16); C Reactive Protein 0.99 mg/dL (< or = 0.50); Calcium 9.5 mg/dL (8.4-10.2); Carbon Dioxide 31 mmol/L (22-29); Chloride 104 mmol/L (96-108); Estimated Glomerular Filt Rate > 60; Glucose Random 93 mg/dL (60-115); Sodium 142 mmol/L (135-145)
[2023-07-04 12:22] LABS: HBS Num1 0.16 mIU/mL (0-7.99); HBc Num1 0.49 S/CO (0.00-0.79); HBsAGNum1 0.39 S/CO (0.00-0.99); Hepatitis A Antibody IgM 0.12 Index (0-0.79); Hepatitis B Core Antibody Nonreactive (Nonreactive); Hepatitis B Surface Antigen Negative (Negative); ~HepC Num1 0.11 S/CO (0.00-0.79); ~Hepatitis A Antibody IgM Nonreactive (Nonreactive); ~Hepatitis B Surface Antibody NONREACTIVE (Nonreactive); ~Hepatitis C Antibody Nonreactive (Nonreactive)
[2023-07-04 12:29] LABS: Erythrocyte Sedimentation Rate 57 MM/HR (0-20)
[2023-07-07 07:14] LABS: TS Negative Control Passed; TS Panel A 0; TS Panel B 0; TS Positive Control Passed; TSpotTB Negative (Negative)
== END 2023-07-04 06:38 | disposition home or self-care (01) ==
LOC: HO.HMGCLDS 06:37
PROVIDERS: PCP Family Medicine; Visit Provider Student in an Organized Health Care Education/Training Program
DX: Z11.7 Encounter for testing for latent tuberculosis infection (principal); Z11.59 Encounter for screening for other viral diseases; Z79.631 Long term (current) use of antimetabolite agent
CPT/HCPCS: 36415; 80053; 85025; 85652; 86140; 86481; 86704; 86706; 86709; 86803; 87340

== ENCOUNTER 2023-07-10 07:35 | Outpatient (AMB) | payer OTHER, SELFPAY ==
[2023-07-10 07:38] VITALS: BP 132/68; BMI 39.2
--- NOTE | 2023-07-10 07:38 | A.OFFVIS_ITS ---
Intake Vital Signs 07/10/23 07:38 Height 5 ft 4 in Weight 228 lb 2.855 oz BMI 39.2 BP 132/68 Blood Pressure Location Lt brachial Position Sitting Intake Visit Reasons: PsA Intake Note: Patient last seen 04/10/23 presents today for follow up and test results. Has seen ID and Vascular; notes scanned in, pt would like Dr Escudero to review. Cross Country And Track And Field Coach Required: No Accompanied by: Self / Same As Patient Allergies No Known Allergies Allergy (Unverified 07/10/23 07:41) Medication List - Last Reconciled 07/10/23 by Dain Escudero MD albuterol sulfate 90 mcg/actuation (ProAir HFA) inhalation atorvastatin 20 mg PO DAILY cephalexin 500 mg PO BID clotrimazole 1% appl topical DAILY clotrimazole-betamethasone 1-0.05 % appl topical DAILY cyclobenzaprine 5 mg PO BEDTIME PRN docusate sodium 100 mg PO DAILY dulaglutide (Trulicity) mg subcut folic acid 1 mg PO DAILY Humira Pen (adalimumab) 40 mg (0.8 mL) subcut QWEEK NS hydrochlorothiazide 25 mg PO DAILY losartan 50 mg PO DAILY methotrexate sodium 20 mg (8 x 2.5 mg) PO QWEEK trospium ER 60 mg PO DAILY HPI HPI Comments History of Present Illness Details 62-year-old female with psoriasis and ps oriatic arthritis presents for follow-up. On Humira weekly, methotrexate 20 mg weekly split dose and folic acid 1 mg daily. She states that she is doing well overall in terms of her arthritis. She states that every few weeks she would have a flare-up of 1 or 2 joints in her hands that lasts 1 or 2 days at the most, improved with Tylenol. Yesterday she started having pain across her right hand knuckles. She was recently evaluated by a vein specialist and venous studies per notes shows a mild venous insufficiency. She was told that intervention might not be helpful. Patient continues to use compression stockings. She is quite frustrated that no one is able to figure out her flare-ups. He continues to get flare-ups of leg cellulitis every 3 months that rapidly respond to Keflex Initial history: This is a 61-year-old female with a past medical history of psoriasis (almost all her life) and psoriatic arthritis diagnosed in 2013, dyslipidemia who presents for evaluation of psoriatic arthritis. The condition started in 2013. She used to see , she was on sulfasalazine which failed, she was then started on Humira and was on it for a few years then it stopped working. She was then switched to Cosentyx and was on it for about 1 year then it stopped working. She was switched to Tremfya last year and was working well for her skin and joints. 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 Her last dose of Tremfya was in October 2021. Currently patient states that she has migrating joint pains from her right index finger to her left index finger and sometimes her thumb. 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 She has low back pain worse with any activity. Back pain is worse in the morning associated with morning stiffness lasting 3-4 hours. Does not wake patient up from sleep. She takes Tylenol almost every day for generalized pain which provided some relief. She mentions having recurrent cellulitis of her lower extremities, she was prescribed cephalexin by Dermatology, has been on it for 3 months and hers cellulitis resolved [facility] Medical History Recurrent cellulitis of lower extremity Dyslipidemia Psoriasis Psoriatic arthritis Surgical History Hx of removal of cyst H/O breast biopsy Hx of cholecystectomy Family History Father No problems noted. 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 Review of Systems Musc Reports arthralgias, Reports joint swelling and Reports stiffness Skin/Breast Reports erythema and Reports rash Physical Exam Vital Signs: Last Vital Signs BP 132/68 07/10/23 07:38 BMI result Body Mass Index 39.2 Const General: cooperative, healthy appearing, comfortable and no acute distress Nutritional Appearance: obese morbidly obese Orientation/consciousness: patient oriented x3 Limitations: no limitations HEENT Head: Yes normocephalic and Yes atraumatic Mouth: Normal oral and palatal mucosa present Resp Effort & Inspection: normal respiratory effort and able to speak in complete sentences Cardio Rate: regular rate Rhythm: regular rhythm Heart sounds: S1 normal heart sound present and S2 normal heart sound present GI Inspection: No distended Palpation (GI): Soft to palpation and nontender Skin Other: No psoriasis patches today Mild hyperpigmentation both shins no erythema or warmth Neuro General: patient oriented x3 Extrem Other: right 4th and 5th MCP swelling and tenderness Results Reviewed Results Reviewed: Left knee MRI 02/10 Impression: findings consistent with prior lateral collateral ligament complex injury with persistent thickening and mildly increased signal intensity in proximal fibular collateral ligament. Minimal truncation of the free edge of the posterior horn medial meniscus. Small effusion. Small Schmidt's cyst. 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 on Humira 40 mg once weekly and methotrexate 20 mg mg once weekly split d ose. Doing fairly well with intermittent short-lived synovitis affecting small joints. Inflammatory markers mildly elevated. Psoriasis rashes resolved. Continue current meds Infectious screening hepatitis panel and T spot -ve 06/2023 Labs before next visit in 3 months (2) Psoriasis: Code(s): L40.9 - Psoriasis, unspecified Plan: Psoriasis is well controlled on current regimen (3) Cyclic citrullinated peptide (CCP) antibody positive: Code(s): R76.8 - Other specified abnormal immunological findings in serum Plan: Low titer positive anti CCP. However patient's inflammatory arthritis are more consistent was psoriatic arthritis with dactylitis. This can be due to long history of smoking. She is trying to quit (4) On methotrexate therapy: Code(s): Z79.631 - shelter (current) use of antimetabolite agent Plan: Monitor safety labs (5) Recurrent cellulitis of lower extremity: Code(s): L03.119 - Cellulitis of unspecified part of limb Plan: Patient was evaluated by Infectious Disease who referred her to a vein specialist to evaluate for venous insufficiency. Per notes. Patient has mild venous insufficiency and intervention is not likely to be helpful. She has been using compression stockings without much improvement. She states that she continues to have a flare-up every about 3 months that rapidly respond to Keflex. Advised patient to consider evaluation by natural gas plant technician when in a flare, consider a skin biopsy. Patient can get her Keflex refill from her PCP if and when needed Plan I spent 46 minutes reviewing patient's chart, evaluating patient, ordering diagnostic workup, counseling patient and documenting in the chart Coding Level of Care Code Est Pt Level 5 (64857) Diagnoses Psoriatic arthritis L40.50 Psoriasis L40.9 Cyclic citrullinated peptide (CCP) antibody positive R76.8 On methotrexate therapy Z79.631 Recurrent cellulitis of lower extremity L03.119
== END 2023-07-10 08:05 | disposition home or self-care (01) ==
PROVIDERS: PCP Family Medicine; Visit Provider Student in an Organized Health Care Education/Training Program
DX: L40.50 Arthropathic psoriasis, unspecified (principal); L40.9 Psoriasis, unspecified; R76.8 Other specified abnormal immunological findings in serum; Z79.631 Long term (current) use of antimetabolite agent; L03.119 Cellulitis of unspecified part of limb
CPT/HCPCS: 99215

== ENCOUNTER → 2023-07-10 07:35 | Outpatient (BNVA) | payer OTHER, SELFPAY | PROVIDERS: PCP Family Medicine; Visit Provider Student in an Organized Health Care Education/Training Program | DX: L40.50 Arthropathic psoriasis, unspecified (principal); L40.9 Psoriasis, unspecified; R76.8 Other specified abnormal immunological findings in serum; L03.119 Cellulitis of unspecified part of limb; Z79.631 Long term (current) use of antimetabolite agent | CPT/HCPCS: 99212 ==

== ENCOUNTER 2023-10-06 08:47 | Outpatient (REF) | payer OTHER, SELFPAY ==
[2023-10-06 10:56] LABS: MANUAL DIFF FLAG NO
[2023-10-06 10:59] LABS: Basophils Percent Auto 0.4 % (0-2); Eosinophils Absolute Auto 0.1 X10*3/uL (0.0-0.4); Eosinophils Percent Auto 1.3 % (0-4); Hematocrit 39.4 % (37.0-47.0); Hemoglobin 12.9 g/dl (12.0-16.0); Imm Gran Abs Auto 0.05 X10*3/uL (0.00-0.03); Imm Gran Pct Auto 0.5 % (0.0-0.4); Lymphocytes Percent Auto 30.1 % (20-40); Mean Corpuscular HGB Conc 32.7 g/dl (31.0-35.0); Mean Corpuscular Hemoglobin 32.3 pg (27.0-33.0); Mean Corpuscular Volume 98.5 fL (80.0-98.0); Mean Platelet Volume 8.9 fL (9.4-12.3); Monocytes Absolute Auto 0.3 X10*3/uL (0.1-1.2); Monocytes Percent Auto 2.7 % (2-11); Neutrophils Absolute Auto 6.4 x10*3/uL (2.0-8.3); Platelet Count 570 X10*3/uL (160-400); Red Cell Distribution Width 14.1 % (11.0-16.0); White Blood Count 9.8 X10*3/uL (4.8-10.8)
[2023-10-06 11:30] LABS: Alanine Aminotransferase 21 U/L (0-31); Albumin Level 4.1 g/dL (3.5-5.0); Alkaline Phosphatase 71 U/L (39-117); Anion Gap 16 (12-20); Aspartate Amino Transferase 24 U/L (5-31); Bilirubin Total 0.6 mg/dL (0.0-1.0); Blood Urea Nitrogen 21 mg/dL (9-16); C Reactive Protein 0.92 mg/dL (< or = 0.50); Calcium 9.5 mg/dL (8.4-10.2); Carbon Dioxide 26 mmol/L (22-29); Chloride 105 mmol/L (96-108); Estimated Glomerular Filt Rate > 60; Glucose Random 95 mg/dL (60-115); Sodium 143 mmol/L (135-145); Total Protein 7.3 g/dL (6.5-8.0)
[2023-10-06 11:50] LABS: Erythrocyte Sedimentation Rate 68 MM/HR (0-20)
== END 2023-10-06 08:48 | disposition home or self-care (01) ==
LOC: HO.HMGCLDS 08:47
PROVIDERS: PCP Family Medicine; Visit Provider Student in an Organized Health Care Education/Training Program
DX: L40.50 Arthropathic psoriasis, unspecified (principal); Z79.631 Long term (current) use of antimetabolite agent
CPT/HCPCS: 36415; 80053; 85025; 85652; 86140

== ENCOUNTER 2023-10-10 07:38 | Outpatient (AMB) | payer OTHER, SELFPAY ==
[2023-10-10 07:41] VITALS: BP 144/70; O2SAT 97; BMI 38.2
--- NOTE | 2023-10-10 07:41 | MHC.OFFVIS ---
Vital Signs 10/10/23 07:41 Height 5 ft 4 in Weight 222 lb 7.143 oz BMI 38.2 BP 144/70 H Blood Pressure Location Rt brachial Position Sitting Pulse Oximetry (%) 97 Oxygen Delivery Method Room Air Intake Visit Reasons: PsA/LVM Intake Note: Pt presents today for follow up and test results. Reports pain in bl feet Ux Designer Required: No Allergies No Known Allergies Allergy (Unverified 10/10/23 07:48) Medication List - Last Reconciled 10/10/23 by Dain Escudero MD albuterol sulfate 90 mcg/actuation (ProAir HFA) inhalation atorvastatin 20 mg PO DAILY cephalexin 500 mg PO BID clotrimazole 1% appl topical DAILY clotrimazole-betamethasone 1-0.05 % appl topical DAILY cyclobenzaprine 5 mg PO BEDTIME PRN docusate sodium 100 mg PO DAILY dulaglutide (Trulicity) mg subcut folic acid 1 mg PO DAILY Humira Pen (adalimumab) 40 mg (0.8 mL) subcut QWEEK NS hydrochlorothiazide 25 mg PO DAILY losartan 50 mg PO DAILY methotrexate sodium 20 mg (8 x 2.5 mg) PO QWEEK trospium ER 60 mg PO DAILY HPI Comments Details: 63-year-old female with psoriasis and psoriatic arthritis presents for follow-up. On Humira weekly, methotrexate 20 mg weekly split dose and folic acid 1 mg daily. She states that she is doing well overall in terms of her arthritis. She states that every few weeks she would have a flare-up of pain in her feet. Psoriasis well controlled. She has not had any recurrent episodes of Keflex. Initial history: This is a 61-year-old female with a past medical history of psoriasis (almost all her life) and psoriatic arthritis diagnosed in 2013, dyslipidemia who presents for evaluation of psoriatic arthritis. The condition started in 2013. She used to see , she was on sulfasalazine which failed, she was then started on Humira and was on it for a few years then it stopped working. She was then switched to Cosentyx and was on it for about 1 year then it stopped working. She was switched to Tremfya last year and was working well for her skin and joints. However her solution developer changed and she is due to see a new solution developer today. Her last dose of Tremfya was in October 2021. Currently patient states that she has migrating joint pains from her right index finger to her left index finger and sometimes her thumb. 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 She has low back pain worse with any activity. Back pain is worse in the morning associated with morning stiffness lasting 3-4 hours. Does not wake patient up from sleep. She takes Tylenol almost every day for generalized pain which provided some relief. She mentions having recurrent cellulitis of her lower extremities, she was prescribed cephalexin by Dermatology, has been on it for 3 months and hers cellulitis resolved [facility] Medical History Recurrent cellulitis of lower extremity Dyslipidemia Psoriasis Psoriatic arthritis Surgical History Hx of removal of cyst H/O breast biopsy Hx of cholecystectomy Family History Father No problems noted. 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 Review of Systems Musc Reports arthralgias, Reports joint swelling and Reports stiffness Skin/Breast Reports erythema Physical Exam Vital Signs: Last Vital Signs BP 144/70 H 10/10/23 07:41 Pulse Ox 97 10/10/23 07:41 Oxygen Delivery Method Room Air 10/10/23 07:41 BMI result Body Mass Index 38.2 Const General: cooperative, healthy appearing, comfortable and no acute distress Nutritional Appearance: obese morbidly obese Orientation/consciousness: patient oriented x3 Limitations: no limitations HEENT Head: Yes normocephalic and Yes atraumatic Mouth: Normal oral and palatal mucosa present Resp Effort & Inspection: normal respiratory effort and able to speak in complete sentences Cardio Rate: regular rate Rhythm: regular rhythm Heart sounds: S1 normal heart sound present and S2 normal heart sound present GI Inspection: No distended Palpation (GI): Soft to palpation and nontender Skin Other: No psoriasis patches today Mild hyperpigmentation both shins no erythema or warmth Neuro General: patient oriented x3 Extrem Other: No active synovitis today Results Reviewed Results Reviewed: Left knee MRI 02/10 Impression: findings consistent with prior lateral collateral ligament complex injury with persistent thickening and mildly increased signal intensity in proximal fibular collateral ligament. Minimal truncation of the free edge of the posterior horn medial meniscus. Small effusion. Small Schmidt's cyst. Grade 2 chondromalacia patella Assessment & Plan Assessment & Plan (1) Psoriatic arthritis: Comment: dx 2013 failed SSZ 2ry nonresponse to humira Failed Cosentyx Tremfya since 2020, then discontinued when her solution developer changed Humira restarted 01/2022 advanced to weekly 09/12 MTX added 05/15 increased to 20 mg 03/2023 Code(s): L40.50 - Arthropathic psoriasis, unspecified Category: Medical Plan: 62-year-old female with psoriasis and psoriatic arthritis presents for follow-up. on Humira 40 mg once weekly and methotrexate 20 mg mg once weekly split dose. Doing fairly well with intermittent short-lived synovitis affecting small joints. Inflammatory markers remain. Her skin is clear of psoriasis. We discussed potentially switching Humira to Rinvoq. We discussed the black box warning potential increased risk of malignancy, cardiovascular events and thromboembolic phenomenon. Explained to patient that she remains at some risk of the side effects given her weight, her dyslipidemia and ongoing smoking. However the potential increased risk is still considered low. Given her intermittent synovitis and persistently elevated inflammatory markers, it would be worth a try. However did not get the Shingrix vaccine. Advised patient to get Shingrix vaccine as soon as she can. Hold methotrexate for 2 weeks after each vaccine dose. For now continue with current [facility] Infectious screening hepatitis panel and T spot -ve 06/2023 Labs before next visit in 3 months (2) Psoriasis: Code(s): L40.9 - Psoriasis, unspecified Category: Medical Plan: Psoriasis is well controlled on current regimen (3) Cyclic citrullinated peptide (CCP) antibody positive: Code(s): R76.8 - Other specified abnormal immunological findings in serum Category: Medical Plan: Low titer positive anti CCP. However patient's inflammatory arthritis are more consistent was psoriatic arthritis with dactylitis. This can be due to long history of smoking. 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 Per notes. Patient has mild venous insufficiency and intervention is not likely to be helpful. She has been using compression stockings without much improvement. She states that she continues to have a flare-up every about 3 months that rapidly respond to Keflex. Advised patient to consider evaluation by solution developer when in a flare, consider a skin biopsy. Patient can get her Keflex refill from her PCP if and when needed Plan I spent 46 minutes reviewing patient's chart, evaluating patient, ordering diagnostic workup, counseling patient and documenting in the chart Orders: Orders Complete Blood Count Auto Diff 3 Months Z79.631 - junior automation engineer (current) use of antimetabolite agent C Reactive Protein 3 Months Z79.631 - halfway (current) use of antimetabolite agent Comprehensive Met. Panel 3 Months Z79.631 - junior automation engineer (current) use of antimetabolite agent Erythrocyte Sedimentation Rate 3 Months Z79.631 - junior automation engineer (current) use of antimetabolite agent Medications: Refilled methotrexate sodium 20 mg (8 x 2.5 mg) PO QWEEK 96 tabs 0RF L40.50 - Arthropathic psoriasis, unspecified Coding Level of Care Code Est Pt Level 5 (15527) Complex EM visit Add On G2211 Diagnoses Psoriatic arthritis L40.50 Psoriasis L40.9 Cyclic citrullinated peptide (CCP) antibody positive R76.8 On methotrexate therapy Z79.631 Recurrent cellulitis of lower extremity L03.119
== END 2023-10-10 08:10 | disposition home or self-care (01) ==
PROVIDERS: PCP Family Medicine; Visit Provider Student in an Organized Health Care Education/Training Program
DX: L40.50 Arthropathic psoriasis, unspecified (principal); L40.9 Psoriasis, unspecified; R76.8 Other specified abnormal immunological findings in serum; Z79.631 Long term (current) use of antimetabolite agent; L03.119 Cellulitis of unspecified part of limb
CPT/HCPCS: 99215; G2211

== ENCOUNTER → 2023-10-10 07:38 | Outpatient (BNVA) | payer OTHER, SELFPAY | PROVIDERS: PCP Family Medicine; Visit Provider Student in an Organized Health Care Education/Training Program | DX: L40.50 Arthropathic psoriasis, unspecified (principal); L40.9 Psoriasis, unspecified; L03.119 Cellulitis of unspecified part of limb; R76.8 Other specified abnormal immunological findings in serum; Z79.631 Long term (current) use of antimetabolite agent | CPT/HCPCS: 99212 ==

== ENCOUNTER 2024-01-01 11:03 | Outpatient (REF) | payer OTHER, SELFPAY ==
[2024-01-01 13:11] LABS: MANUAL DIFF FLAG NO
[2024-01-01 13:20] LABS: Basophils Absolute Auto 0.1 X10*3/uL (0.0-0.2); Basophils Percent Auto 0.5 % (0-2); Eosinophils Absolute Auto 0.1 X10*3/uL (0.0-0.4); Eosinophils Percent Auto 0.9 % (0-4); Hematocrit 39.2 % (37.0-47.0); Hemoglobin 12.9 g/dl (12.0-16.0); Imm Gran Abs Auto 0.13 X10*3/uL (0.00-0.03); Imm Gran Pct Auto 1.2 % (0.0-0.4); Lymphocytes Absolute Auto 2.8 X10*3/uL (1.2-4.9); Lymphocytes Percent Auto 24.6 % (20-40); Mean Corpuscular HGB Conc 32.9 g/dl (31.0-35.0); Mean Corpuscular Hemoglobin 32.3 pg (27.0-33.0); Mean Corpuscular Volume 98.2 fL (80.0-98.0); Mean Platelet Volume 8.9 fL (9.4-12.3); Monocytes Absolute Auto 0.8 X10*3/uL (0.1-1.2); Monocytes Percent Auto 6.7 % (2-11); Neutrophils Absolute Auto 7.5 x10*3/uL (2.0-8.3); Neutrophils Percent Auto 66.1 % (45-73); Platelet Count 520 X10*3/uL (160-400); Red Blood Count 3.99 X10*6/uL (4.20-5.50); Red Cell Distribution Width 14.1 % (11.0-16.0); White Blood Count 11.3 X10*3/uL (4.8-10.8)
[2024-01-01 13:30] LABS: Alanine Aminotransferase 23 U/L (0-31); Alkaline Phosphatase 67 U/L (39-117); Anion Gap 14 (12-20); Aspartate Amino Transferase 23 U/L (5-31); Bilirubin Total 0.3 mg/dL (0.0-1.0); Blood Urea Nitrogen 17 mg/dL (9-16); Calcium 9.5 mg/dL (8.4-10.2); Carbon Dioxide 26 mmol/L (22-29); Chloride 105 mmol/L (96-108); Estimated Glomerular Filt Rate > 60; Glucose Random 96 mg/dL (60-115); Potassium 4.2 mmol/L (3.3-5.1); Sodium 141 mmol/L (135-145); Total Protein 7.3 g/dL (6.5-8.0)
[2024-01-01 13:52] LABS: Erythrocyte Sedimentation Rate 70 MM/HR (0-20)
== END 2024-01-01 11:04 | disposition home or self-care (01) ==
LOC: HO.HMGCLDS 11:03
PROVIDERS: PCP Family Medicine; Visit Provider Student in an Organized Health Care Education/Training Program
DX: Z79.631 Long term (current) use of antimetabolite agent (principal)
CPT/HCPCS: 36415; 80053; 85025; 85652; 86140

== ENCOUNTER 2024-01-07 07:42 | Outpatient (AMB) | payer OTHER, SELFPAY ==
--- NOTE | 2024-01-07 07:44 | MHC.OFFVIS ---
Vital Signs 01/07/24 07:47 Height 5 ft 4 in Weight 215 lb 13.321 oz BMI 37.0 BP 132/80 Blood Pressure Location Rt brachial Position Sitting Pulse 73 Pulse Oximetry (%) 98 Oxygen Delivery Method Room Air Intake Visit Reasons: PSA Intake Note: Patient presents today for PsA. Allergies No Known Allergies Allergy (Verified 01/07/24 07:47) Medication List - Last Reconciled 01/07/24 by Dain Escudero MD albuterol sulfate 90 mcg/actuation (ProAir HFA) inhalation atorvastatin 20 mg PO DAILY cephalexin 500 mg PO BID clotrimazole 1% appl topical DAILY clotrimazole-betamethasone 1-0.05 % appl topical DAILY cyclobenzaprine 5 mg PO BEDTIME PRN docusate sodium 100 mg PO DAILY dulaglutide (Trulicity) mg subcut folic acid 1 mg PO DAILY Humira Pen (adalimumab) 40 mg (0.8 mL) subcut QWEEK NS hydrochlorothiazide 25 mg PO DAILY losartan 50 mg PO DAILY methotrexate sodium 20 mg (8 x 2.5 mg) PO QWEEK trospium ER 60 mg PO DAILY HPI Comments Details: 63-year-old female with psoriasis and psoriatic arthritis presents for follow-up. On Humira weekly, methotrexate 20 mg weekly split dose and folic acid 1 mg daily. She states that she is doing well overall in terms of her arthritis. She states that every few weeks she would have a flare-up of pain and swelling in her fingers. It does not last long. Psoriasis well controlled. She has not had any recurrent episodes of cellulitis requiring Keflex. Initial history: This is a 61-year-old female with a past medical history of psoriasis (almost all her life) and psoriatic arthritis diagnosed in 2013, dyslipidemia who presents for evaluation of psoriatic arthritis. The condition started in 2013. She used to see , she was on sulfasalazine which failed, she was then started on Humira and was on it for a few years then it stopped working. She was then switched to Cosentyx and was on it for about 1 year then it stopped working. She was switched to Tremfya last year and was working well for her skin and joints. However her motor scooter mechanic changed and she is due to see a new motor scooter mechanic today. Her last dose of Tremfya was in October 2021. Currently patient states that she has migrating joint pains from her right index finger to her left index finger and sometimes her thumb. 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 She has low back pain worse with any activity. Back pain is worse in the morning associated with morning stiffness lasting 3-4 hours. Does not wake patient up from sleep. She takes Tylenol almost every day for generalized pain which provided some relief. She mentions having recurrent cellulitis of her lower extremities, she was prescribed cephalexin by Dermatology, has been on it for 3 months and hers cellulitis resolved [facility] Medical History Recurrent cellulitis of lower extremity Dyslipidemia Psoriasis Psoriatic arthritis Surgical History Hx of removal of cyst H/O breast biopsy Hx of cholecystectomy Family History Father No problems noted. 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 Review of Systems Musc Reports arthralgias, Reports joint swelling and Reports stiffness Physical Exam Vital Signs: Last Vital Signs Pulse 73 01/07/24 07:47 BP 132/80 01/07/24 07:47 Pulse Ox 98 01/07/24 07:47 Oxygen Delivery Method Room Air 01/07/24 07:47 BMI result Body Mass Index 37.0 Const General: cooperative, healthy appearing, comfortable and no acute distress Nutritional Appearance: obese morbidly obese Orientation/consciousness: patient oriented x3 Limitations: no limitations HEENT Head: Yes normocephalic and Yes atraumatic Mouth: Normal oral and palatal mucosa present Resp Effort & Inspection: normal respiratory effort and able to speak in complete sentences GI Inspection: No distended Palpation (GI): Soft to palpation and nontender Skin Other: No psoriasis patches today Varicose veins both shins Mild hyperpigmentation both shins no erythema or warmth Neuro General: patient oriented x3 Extrem Other: Very subtle dactylitis of left thumb With tenderness at the PIP No active synovitis otherwise Results Reviewed Results Reviewed: Left knee MRI 02/10 Impression: findings consistent with prior lateral collateral ligament complex injury with persistent thickening and mildly increased signal intensity in proximal fibular collateral ligament. Minimal truncation of the free edge of the posterior horn medial meniscus. Small effusion. Small Schmidt's cyst. Grade 2 chondromalacia patella Assessment & Plan Assessment & Plan (1) Psoriatic arthritis: Comment: dx 2013 failed SSZ 2ry nonresponse to humira Failed Cosentyx Tremfya since 2020, then discontinued when her motor scooter mechanic changed Humira restarted 01/2022 advanced to weekly 09/12 MTX added 05/15 increased to 20 mg 03/2023 Code(s): L40.50 - Arthropathic psoriasis, unspecified Category: Medical Plan: 63-year-old female with psoriasis and psoriatic arthritis presents for follow-up. on Humira 40 mg once weekly and methotrexate 20 mg mg once weekly split dose. Doing fairly well with intermittent short-lived synovitis affecting small joints. Inflammatory markers remain elevated. Her high inflammatory markers may be related to her continued smoking her obesity and her inflammatory arthritis. Her skin is clear of psoriasis. We discussed potentially switching Humira to Rinvoq. We discussed the black box warning potential increased risk of malignancy, cardiovascular events and thromboembolic phenomenon. Explained to patient that she remains at some risk of the side effects given her weight, her dyslipidemia and ongoing smoking. Patient feels reasonably well and would not like to make a change. Continue current meds as prescribed Infectious screening hepatitis panel and T spot -ve 06/2023 Labs before next visit in 4 months (2) Psoriasis: Code(s): L40.9 - Psoriasis, unspecified Category: Medical Plan: Psoriasis is well controlled on current regimen (3) Cyclic citrullinated peptide (CCP) antibody positive: Code(s): R76.8 - Other specified abnormal immunological findings in serum Category: Medical Plan: Low titer positive anti CCP. However patient's inflammatory arthritis are more consistent was psoriatic arthritis with dactylitis. This can be due to long history of smoking. 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 Per notes. Patient has mild venous insufficiency and intervention is not likely to be helpful. She has been using compression stockings without much improvement. She states that she continues to have a flare-up every about 3 months that rapidly respond to Keflex. Advised patient to consider evaluation by motor scooter mechanic when in a flare, consider a skin biopsy. Patient can get her Keflex refill from her PCP if and when needed (6) Immunization counseling: Code(s): Z71.85 - Encounter for immunization safety counseling Category: Medical Plan: Patient received the 1st dose of her Shingrix vaccine, next dose around , she also received the flu vaccine. Last week. Advised patient to skip 1 methotrexate dose Plan I spent 46 minutes reviewing patient's chart, evaluating patient, ordering diagnostic workup, counseling patient and documenting in the chart Orders: Orders Comprehensive Met. Panel 4 Months L40.50 - Arthropathic psoriasis, unspecified, Z79.631 - computer terminal operator (current) use of antimetabolite agent Complete Blood Count Auto Diff 4 Months L40.50 - Arthropathic psoriasis, unspecified, Z79.631 - nursing home (current) use of antimetabolite agent C Reactive Protein 4 Months L40.50 - Arthropathic psoriasis, unspecified, Z79.631 - computer terminal operator (current) use of antimetabolite agent Erythrocyte Sedimentation Rate 4 Months L40.50 - Arthropathic psoriasis, unspecified, Z79.631 - computer terminal operator (current) use of antimetabolite agent Medications: Refilled methotrexate sodium 20 mg (8 x 2.5 mg) PO QWEEK 128 tabs 0RF L40.50 - Arthropathic psoriasis, unspecified Humira Pen (adalimumab) 40 mg (0.8 mL) subcut QWEEK 4 ea 3RF NS Coding Level of Care Code Est Pt Level 5 (46978) Complex EM visit Add On G2211 Diagnoses Psoriatic arthritis L40.50 Psoriasis L40.9 Cyclic citrullinated peptide (CCP) antibody positive R76.8 On methotrexate therapy Z79.631 Recurrent cellulitis of lower extremity L03.119 Immunization counseling Z71.85
[2024-01-07 07:47] VITALS: BP 132/80; PULSE 73; O2SAT 98; BMI 37.0
== END 2024-01-07 08:08 | disposition home or self-care (01) ==
PROVIDERS: PCP Family Medicine; Visit Provider Student in an Organized Health Care Education/Training Program
DX: L40.50 Arthropathic psoriasis, unspecified (principal); L40.9 Psoriasis, unspecified; R76.8 Other specified abnormal immunological findings in serum; Z79.631 Long term (current) use of antimetabolite agent; L03.119 Cellulitis of unspecified part of limb; Z71.85 Encounter for immunization safety counseling
CPT/HCPCS: 99215; G2211

== ENCOUNTER → 2024-01-07 07:42 | Outpatient (BNVA) | payer OTHER, SELFPAY | PROVIDERS: PCP Family Medicine; Visit Provider Student in an Organized Health Care Education/Training Program | DX: L40.50 Arthropathic psoriasis, unspecified (principal); L40.9 Psoriasis, unspecified; R76.8 Other specified abnormal immunological findings in serum; L03.116 Cellulitis of left lower limb; L03.115 Cellulitis of right lower limb; Z71.85 Encounter for immunization safety counseling; Z79.631 Long term (current) use of antimetabolite agent; Z79.620 Long term (current) use of immunosuppressive biologic | CPT/HCPCS: 99212 ==

== ENCOUNTER 2024-04-28 08:46 | Outpatient (REF) | payer OTHER, SELFPAY ==
[2024-04-28 10:33] LABS: MANUAL DIFF FLAG NO
[2024-04-28 10:37] LABS: Basophils Absolute Auto 0.1 X10*3/uL (0.0-0.2); Basophils Percent Auto 0.5 % (0-2); Eosinophils Absolute Auto 0.2 X10*3/uL (0.0-0.4); Eosinophils Percent Auto 1.6 % (0-4); Hematocrit 41.8 % (37.0-47.0); Hemoglobin 13.9 g/dl (12.0-16.0); Imm Gran Abs Auto 0.08 X10*3/uL (0.00-0.03); Imm Gran Pct Auto 0.7 % (0.0-0.4); Lymphocytes Absolute Auto 3.6 X10*3/uL (1.2-4.9); Lymphocytes Percent Auto 30.8 % (20-40); Mean Corpuscular HGB Conc 33.3 g/dl (31.0-35.0); Mean Corpuscular Hemoglobin 32.7 pg (27.0-33.0); Mean Corpuscular Volume 98.4 fL (80.0-98.0); Monocytes Absolute Auto 0.8 X10*3/uL (0.1-1.2); Monocytes Percent Auto 6.7 % (2-11); Neutrophils Absolute Auto 6.9 x10*3/uL (2.0-8.3); Neutrophils Percent Auto 59.7 % (45-73); Platelet Count 454 X10*3/uL (160-400); Red Blood Count 4.25 X10*6/uL (4.20-5.50); Red Cell Distribution Width 13.8 % (11.0-16.0); White Blood Count 11.6 X10*3/uL (4.8-10.8)
[2024-04-28 11:03] LABS: Alanine Aminotransferase 20 U/L (0-31); Alkaline Phosphatase 69 U/L (39-117); Anion Gap 10 (12-20); Aspartate Amino Transferase 24 U/L (5-31); Bilirubin Total 0.4 mg/dL (0.0-1.0); Blood Urea Nitrogen 15 mg/dL (9-16); C Reactive Protein 0.76 mg/dL (< or = 0.50); Carbon Dioxide 29 mmol/L (22-29); Chloride 107 mmol/L (96-108); Estimated Glomerular Filt Rate > 60; Glucose Random 92 mg/dL (60-115); Potassium 3.6 mmol/L (3.3-5.1); Sodium 142 mmol/L (135-145); Total Protein 7.2 g/dL (6.5-8.0)
[2024-04-28 11:13] LABS: Erythrocyte Sedimentation Rate 44 MM/HR (0-20)
== END 2024-04-28 08:47 | disposition home or self-care (01) ==
LOC: HO.HMGCLDS 08:46
PROVIDERS: PCP Family Medicine; Visit Provider Student in an Organized Health Care Education/Training Program
DX: L40.50 Arthropathic psoriasis, unspecified (principal); Z79.631 Long term (current) use of antimetabolite agent
CPT/HCPCS: 36415; 80053; 85025; 85652; 86140

== ENCOUNTER 2024-05-05 07:35 | Outpatient (AMB) | payer OTHER, SELFPAY ==
--- NOTE | 2024-05-05 07:52 | A.OFFVIS_ITS ---
Vital Signs 05/05/24 07:54 Height 5 ft 4 in Weight 219 lb 5.759 oz BMI 37.6 BP 124/72 Blood Pressure Location Rt brachial Position Sitting Pulse 78 Pulse Source Pulse Oximeter Pulse Oximetry (%) 96 Oxygen Delivery Method Room Air Intake Visit Reasons: PSA Intake Note: Patient last seen by Doctor Dain Escudero on 01/07/24. Presents today for PsA follow up and test results. Allergies No Known Allergies Allergy (Verified 05/05/24 07:55) Medication List - Last Reconciled 05/05/24 by Dain Escudero MD albuterol sulfate 90 mcg/actuation (ProAir HFA) inhalation atorvastatin 20 mg PO DAILY cephalexin 500 mg PO BID clotrimazole 1% appl topical DAILY clotrimazole-betamethasone 1-0.05 % appl topical DAILY cyclobenzaprine 5 mg PO BEDTIME PRN docusate sodium 100 mg PO DAILY dulaglutide (Trulicity) mg subcut folic acid 1 mg PO DAILY Humira Pen (adalimumab) 40 mg (0.8 mL) subcut QWEEK NS hydrochlorothiazide 25 mg PO DAILY losartan 50 mg PO DAILY methotrexate sodium 20 mg (8 x 2.5 mg) PO QWEEK trospium ER 60 mg PO DAILY HPI Comments Details: 63-year-old female with psoriasis and psoriatic arthritis presents for follow- up. On Humira weekly, methotrexate 20 mg weekly split dose and folic acid 1 mg daily. She states that she is doing well overall in terms of her arthritis, but she has been slightly more achy recently overall, has been having generalized stiffness, especially of her knees. She will see her orthopedist soon for injections. She has been having a flare-up of what is presumed to be cellulitis involving her right leg over the last 2 days. Initial history: This is a 61-year-old female with a past medical history of psoriasis (almost all her life) and psoriatic arthritis diagnosed in 2013, dyslipidemia who presents for evaluation of psoriatic arthritis. The condition started in 2013. She used to see , she was on sulfasalazine which failed, she was then started on Humira and was on it for a few years then it stopped working. She was then switched to Cosentyx and was on it for about 1 year then it stopped working. She was switched to Tremfya last year and was working well for her skin and joints. However her collection development librarian changed and she is due to see a new collection development librarian today. Her last dose of Tremfya was in October 2021. Currently patient states that she has migrating joint pains from her right index finger to her left index finger and sometimes her thumb. 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 She has low back pain worse with any activity. Back pain is worse in the morning associated with morning stiffness lasting 3-4 hours. Does not wake patient up from sleep. She takes Tylenol almost every day for generalized pain which provided some relief. She mentions having recurrent cellulitis of her lower extremities, she was prescribed cephalexin by Dermatology, has been on it for 3 months and hers cellulitis resolved [facility] Medical History Recurrent cellulitis of lower extremity Dyslipidemia Psoriasis Psoriatic arthritis Surgical History Hx of removal of cyst H/O breast biopsy Hx of cholecystectomy Family History Father No problems noted. 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 Review of Systems Musc Reports arthralgias and Reports stiffness Skin/Breast Reports erythema Physical Exam Vital Signs: Last Vital Signs Pulse 78 05/05/24 07:54 BP 124/72 05/05/24 07:54 Pulse Ox 96 05/05/24 07:54 Oxygen Delivery Method Room Air 05/05/24 07:54 BMI result Body Mass Index 37.6 Const General: cooperative, healthy appearing, comfortable and no acute distress Nutritional Appearance: obese morbidly obese Orientation/consciousness: patient oriented x3 Limitations: no limitations HEENT Head: Yes normocephalic and Yes atraumatic Mouth: Normal oral and palatal mucosa present Resp Effort & Inspection: normal respiratory effort and able to speak in complete sentences GI Inspection: No distended Palpation (GI): Soft to palpation and nontender Skin Other: Bilateral varicose veins Areas of mild hyperpigmentation of both shins Slight erythema warmth and slight tenderness of the right ankle/dodd area Neuro General: patient oriented x3 Extrem Other: No swollen joints noted today Negative Tinel sign bilaterally Normal bilateral hand referral nurse strength Assessment & Plan Assessment & Plan (1) Psoriatic arthritis: Comment: dx 2013 failed SSZ 2ry nonresponse to humira Failed Cosentyx Tremfya since 2020, then discontinued when her collection development librarian changed Humira restarted 01/2022 advanced to weekly 09/12 MTX added 05/15 increased to 20 mg 03/2023 Code(s): L40.50 - Arthropathic psoriasis, unspecified Category: Medical Plan: 63-year-old female with psoriasis and psoriatic arthritis presents for follow- up. on Humira 40 mg once weekly and methotrexate 20 mg mg once weekly split dose. She is doing well today with no active synovitis noted. Her skin is clear of psoriasis. Continue current meds as prescribed Infectious screening hepatitis panel and T spot -ve 06/2023 Labs before next visit in 4 months (2) Psoriasis: Code(s): L40.9 - Psoriasis, unspecified Category: Medical Plan: Psoriasis is well controlled on current regimen (3) Cyclic citrullinated peptide (CCP) antibody positive: Code(s): R76.8 - Other specified abnormal immunological findings in serum Category: Medical Plan: Low titer positive anti CCP. However patient's inflammatory arthritis are more consistent was psoriatic arthritis with dactylitis. This can be due to long history of smoking. She is trying to quit (4) On methotrexate therapy: Code(s): Z79.631 - buttermaker (current) use of antimetabolite agent Category: Medical Plan: Monitor safety labs (5) Recurrent cellulitis of lower extremity: Code(s): L03.119 - Cellulitis of unspecified part of limb Category: Medical Plan: Patient was evaluated by Infectious Disease who referred her to a vein specialist to evaluate for venous insufficiency. Per notes. Patient has mild venous insufficiency and intervention is not likely to be helpful. She uses compression stockings but not regularly. She states that she continues to have a flare-up every about 3 months that rapidly respond to Keflex. Today she is flaring. Keflex prescribed. Advised patient to wear her compression stockings regularly Plan I spent 26 minutes reviewing patient's chart, evaluating patient, ordering diagnostic workup, counseling patient and documenting in the chart Orders: Orders Complete Blood Count Auto Diff 4 Months L40.50 - Arthropathic psoriasis, unspecified, Z79.631 - buttermaker (current) use of antimetabolite agent Comprehensive Met. Panel 4 Months L40.50 - Arthropathic psoriasis, unspecified, Z79.631 - [facility] (current) use of antimetabolite agent C Reactive Protein 4 Months L40.50 - Arthropathic psoriasis, unspecified, Z79.631 - [facility] (current) use of antimetabolite agent Erythrocyte Sedimentation Rate 4 Months L40.50 - Arthropathic psoriasis, unspecified, Z79.631 - buttermaker (current) use of antimetabolite agent Medications: Refilled cephalexin 500 mg PO BID 14 caps 0RF Coding Level of Care Code Est Pt Level 4 (01543) Complex EM visit Add On G2211 Diagnoses Psoriatic arthritis L40.50 Psoriasis L40.9 Cyclic citrullinated peptide (CCP) antibody positive R76.8 On methotrexate therapy Z79.631 Recurrent cellulitis of lower extremity L03.119
[2024-05-05 07:54] VITALS: BP 124/72; PULSE 78; O2SAT 96; BMI 37.6
== END 2024-05-05 08:25 | disposition home or self-care (01) ==
PROVIDERS: PCP Family Medicine; Visit Provider Student in an Organized Health Care Education/Training Program
DX: L40.50 Arthropathic psoriasis, unspecified (principal); L40.9 Psoriasis, unspecified; R76.8 Other specified abnormal immunological findings in serum; Z79.631 Long term (current) use of antimetabolite agent; L03.119 Cellulitis of unspecified part of limb
CPT/HCPCS: 99214; G2211

== ENCOUNTER → 2024-05-05 07:35 | Outpatient (BNVA) | payer OTHER, SELFPAY | PROVIDERS: PCP Family Medicine; Visit Provider Student in an Organized Health Care Education/Training Program | DX: L40.50 Arthropathic psoriasis, unspecified (principal); L40.9 Psoriasis, unspecified; R76.8 Other specified abnormal immunological findings in serum; L03.119 Cellulitis of unspecified part of limb; Z79.631 Long term (current) use of antimetabolite agent | CPT/HCPCS: 99212 ==

== ENCOUNTER 2024-08-02 20:27 | Emergency (ER) | payer OTHER, SELFPAY ==
[2024-08-02 20:32] VITALS: BP 182/95; PULSE 76; O2SAT 100
--- NOTE | 2024-08-02 20:36 | ED.GENADULT ---
HPI - General Adult General Chief complaint: Animal Bite Stated complaint: scratched by dog Time Seen by Provider: 08/02/24 22:31 Source: patient, RN notes reviewed and old records reviewed Mode of arrival: EMS Limitations: no limitations History of Present Illness ED Provider: Jenny HPI narrative: 63-year-old female presents for evaluation of a leg wound. Patient reports that she was scratched by her own dog. She reports it was a 10 lb dog. The dog is up-to-date on its vaccines pain The patient is up-to-date on her tetanus She reports that she has a number of varicose veins in the area. She was scratched by her dog when he jumped at her and has had a significant amount of bleeding of dodd She was not on any anticoagulation but does on methotrexate for a history of psoriatic arthritis Related Data Home Medications ?Medication ?Instructions ?Recorded ?Confirmed albuterol sulfate 90 mcg/actuation inhalation 01/10/22 10/10/23 aerosol inhaler (ProAir HFA) atorvastatin 20 mg tablet 20 mg PO DAILY 01/10/22 10/10/23 clotrimazole 1 % topical cream appl topical DAILY 04/10/23 10/10/23 clotrimazole-betamethasone 1 appl topical DAILY 04/10/23 10/10/23 %-0.05 % topical cream docusate sodium 100 mg capsule 100 mg PO DAILY 07/10/23 10/10/23 dulaglutide 3 mg/0.5 mL mg subcut 07/10/23 10/10/23 subcutaneous pen injector (Trulicity) hydrochlorothiazide 25 mg tablet 25 mg PO DAILY 07/10/23 10/10/23 losartan 50 mg tablet 50 mg PO DAILY 07/10/23 10/10/23 trospium 60 mg capsule,extended 60 mg PO DAILY 07/10/23 10/10/23 release 24 hr Previous Rx's ?Medication ?Instructions ?Recorded cyclobenzaprine 5 mg tablet 5 mg PO BEDTIME PRN for muscle 05/04/23 spasm #10 tabs methotrexate sodium 2.5 mg tablet 20 mg (8 x 2.5 mg) PO QWEEK #96 04/07/24 tabs folic acid 1 mg tablet 1 mg PO DAILY #90 tabs 04/17/24 Humira Pen 40 mg/0.8 mL 40 mg (0.8 mL) subcut QWEEK #4 ea 06/13/24 subcutaneous kit (adalimumab) cephalexin 500 mg capsule 500 mg PO BID #14 caps 07/14/24 Allergies Allergy/AdvReac Type Severity Reaction Status Date / Time No Known Allergies Allergy Verified 08/02/24 20:45 Review of Systems Constitutional: Constitutional: Denies body ache(s), Denies chills, Denies fever(s) and Denies headache(s) Eyes: Eyes: Denies blurry vision ENT: Denies vertigo, Denies dizziness and Denies headache(s) Cardiovascular: Cardiovascular: Denies chest pain and Denies dyspnea Respiratory: Respiratory: Denies cough and Denies dyspnea Integumentary/Breasts: Skin/Breast: Reports wounds Neurologic: Denies vertigo, Denies dizziness and Denies headache(s) [facility] Past Medical History Medical History Recurrent cellulitis of lower extremity Dyslipidemia Psoriasis Psoriatic arthritis Surgical History Hx of removal of cyst H/O breast biopsy Hx of cholecystectomy Family History Family History Father No problems noted. 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 ED Vital Signs: Vital Signs - 24 hr 08/02/24 20:38 08/02/24 22:31 08/02/24 23:43 Temperature 98.4 F 98 F 98 F Pulse Rate 87 74 74 Respiratory Rate 17 20 20 Blood Pressure 146/70 H 149/64 H 149/64 H Pulse Oximetry 98 98 98 Oxygen Delivery Method Room Air Room Air Room Air BMI result Body Mass Index 37.8 Const General: healthy appearing, comfortable, no acute distress, alert and awake Nutritional Appearance: well nourished Orientation/consciousness: patient oriented x3 HENMT Head: Yes normocephalic and Yes atraumatic Eyes Eyelids: Yes eyelids normal Conjunctivae: conjunctivae normal Sclerae: sclerae normal Corneas: corneas normal Pupils: Equal, round and reactive pupils present EOM: EOMs intact bilaterally Neck Neck: Yes full ROM Resp Effort & Inspection: normal respiratory effort, able to speak in complete sentences and not labored Skin Other: Patient has a 1 x 2 cm skin tear to the left medial/anterior dodd. There is a steady flow of dark red blood from the superior aspect of the wound. General skin exam: elasticity normal Neuro General: patient oriented x3 Cranial nerves: Yes Equal, round and reactive pupils present and Yes Bilaterally intact EOM present Cognition (Neuro): normal cognition Extrem Other: Moving all extremities well without any obvious deformities Course Course Course Narrative: This is a rapid medical exam performed by Crow Maynard NP: Additional HPI, ROS, PE not included below will be deferred to primary provider. Patient is a 63-year-old female with history of psoriatic arthritis on methotrexate presenting to the ED with complaint of scratch to left leg from her dog at home. States they were playing when he accidentally scratched a cluster of veins on her leg. States she is UTD on tetanus. Dog UTD on vaccinations. She is not anticoagulated. Dressing to lower leg applied by EMS. Medications Administered Discontinued Medications Generic Name Dose Route Start Last Admin Trade Name Freq PRN Reason Stop Dose Admin Lidocaine/Epinephrine 10 ml 08/02/24 22:49 08/02/24 23:01 Lidocaine Hcl 1%/Epi 1:100,000 10 Ml Vial INFILTRATI 08/02/24 22:50 10 ml ONCE ONE Administration Procedures Laceration Laceration 1: Site: lower extremity Side (If applicable): left Size (cm): 2 Description: flap and irregular Depth: simple, single layer Local Anesthetic: lidocaine 1% and with epi Amount of anesthesia used (mL): 6 Pre-repair: wound explored, irrigated extensively and deep structures intact Skin layer closed with: nylon Size (cm): 4-0 Number of sutures: 3 Technique: simple, interrupted Medical Decision Making Medical Decision Making MDM Narrative: 63-year-old female presents for evaluation of a left leg skin tear. This was caused by her own dog. This was not a bite wound. The dog is up-to-date on his vaccines. I attempted to stop the bleeding with direct pressure, I injected with lidocaine and epinephrine to help control hemostasis. There was still some active bleeding and then placed 3 sutures to stop the bleeding which was successful in achieving hemostasis. Differential Diagnosis Differential Diagnoses: The differential diagnosis associated with the presentation includes Laceration Skin tear Puncture wound Abrasion Discharge Plan Discharge Clinical Impression: Noninfected skin tear of left leg Patient Disposition: Home, Self-Care Instructions: Laceration (ED) Additional Instructions: You had a skin tear to your left leg. I put [address] becuse it would not stop bleeding Keep the area clean and dry You may apply topical antibiotic once per day Your stitches can be removed in 14 days. Return for new or worsening symptoms Prescriptions: No Action cyclobenzaprine 5 mg tablet 5 mg PO BEDTIME PRN (Reason: for muscle spasm) Qty: 10 1RF methotrexate sodium 2.5 mg tablet 20 mg PO QWEEK Qty: 96 1RF folic acid 1 mg tablet 1 mg PO DAILY Qty: 90 1RF Humira Pen 40 mg/0.8 mL pen injector kit 40 mg subcut QWEEK Qty: 4 4RF cephalexin 500 mg capsule 500 mg PO BID Qty: 14 0RF atorvastatin 20 mg tablet 20 mg PO DAILY albuterol sulfate [ProAir HFA] 90 mcg/actuation HFA aerosol inhaler inhalation clotrimazole-betamethasone 1-0.05 % cream topical DAILY clotrimazole 1 % cream topical DAILY Trulicity 3 mg/0.5 mL pen injector subcut trospium 60 mg capsule,extended release 24hr 60 mg PO DAILY hydrochlorothiazide 25 mg tablet 25 mg PO DAILY losartan 50 mg tablet 50 mg PO DAILY docusate sodium 100 mg capsule 100 mg PO DAILY Interventions: ED Discharge Assessment Last Done: 08/02/24 23:43 Print Language: Welsh
[2024-08-02 20:38] VITALS: BP 146/70; PULSE 87; RESP 17; TEMP 36.9; O2SAT 98; BMI 37.8
[2024-08-02 22:31] VITALS: BP 149/64; PULSE 74; RESP 20; TEMP 36.6; O2SAT 98
[2024-08-02] MEDS: Lidocaine HCl 1%/Epi 1:100,000 10 ML VIAL INFILTRATI (23:01)
--- NOTE | 2024-08-02 23:07 | PC.NURSE ---
pt ambulated independently to bathroom
[2024-08-02 23:43] VITALS: BP 149/64; PULSE 74; RESP 20; TEMP 36.6; O2SAT 98
== END 2024-08-02 23:51 | disposition home or self-care (01) ==
PROVIDERS: Emergency Provider Internal Medicine; PCP Family Medicine
DX: S81.812A Laceration without foreign body, left lower leg, initial encounter (principal); M79.605 Pain in left leg; W50.3XXA Accidental bite by another person, initial encounter; Y93.9 Activity, unspecified; Y92.9 Unspecified place or not applicable; Y99.8 Other external cause status; Z79.899 Other long term (current) drug therapy; Z87.891 Personal history of nicotine dependence
CPT/HCPCS: 12001; 99284; J2004

== ENCOUNTER 2024-09-10 08:44 | Outpatient (REF) | payer OTHER, SELFPAY ==
--- OUTSIDE RECORDS SUMMARY | 2024-09-10 10:01 | XMS_ITS | Clinical Summary ---
Author Organization [facility] Address [address] [place] [address] Care Team Providers Care Boiler Coverer Helper Name Role Phone Pancho Boswell MD Primary Care Pr ovider Allergies Active Allergy Reactions Criticality Noted Date Comments Bupropion 05/02/2023 Hives Medications Medication Sig Dispensed Refills Start Date End Date Status Adalimumab (Humira) 40 MG/0.8ML injection Inject 0.8 mL (40 mg total) under the skin once a week. 0 Active dulaglutide (TRULICITY) 1.5 MG/0.5ML subcutaneous pen-injector Inject 0.5 mL (1.5 mg total) under the skin once a week. 0 Active losartan (COZAAR) tablet 50 mg Take 1 tablet (50 mg total) by mouth daily. 0 Active atorvastatin (LIPITOR) tablet 20 mg Take 1 tablet (20 mg total) by mouth daily. 0 Active docusate sodium (COLACE) 100 MG capsule Take 1 capsule (100 mg total) by mouth 2 (two) times a day. 0 Active folic acid (FOLVITE) tablet 1 mg Take 1 tablet (1 mg total) by mouth daily. 0 Active methotrexate (WEEKLY DOSING) 2.5 MG tablet Take 1 tablet (2.5 mg total) by mouth every 7 days. Six tablets weekly 0 Active cyclobenzaprine (FLEXERIL) 5 MG tablet Take 1 tablet (5 mg total) by mouth as needed for muscle spasms. 0 Active Active Problems No known active problems Family History Medical History Relation Name Comments Dementia Mother Relation Name Status Comments Mother Alive Social History Tobacco Use Types Packs/Day Years Used Date Smoking Tobacco: Some Days Cigarettes Smokeless Tobacco: Never Tobacco Cessation:Ready to Q uit: Not Asked; Counseling Given: Not Answered Alcohol Use Standard Drinks/Week Comments Yes 0 (1 standard drink = 0.6 oz pur e alcohol) Socially Sex and Gender Information Value Date Recorded Sex Assigned at Not on file Gender Identity Not on file Sexual Orientation Not on file Job Start Date Occupation Industry Not on file Not on file Not on file Last Filed Vital Signs Vital Sign Reading Time Taken Comments Blood Pressure 154/86 08/29/2023 8:57 AM EDT Pulse 73 08/29/2023 8:57 AM EDT Temperature 36.8 ??C (98.2 ??F) 08/29/2023 8:57 AM ED T Respiratory Rate - - Oxygen Saturation 97% 08/29/2023 8:57 AM EDT Inhaled Oxygen Concentration - - Weight 101.3 kg (223 lb 6.4 oz) 08/29/2023 8:57 AM EDT Height 162.6 cm (5' 4 ) 08/29/2023 8:57 AM EDT Body Mass Index 38.35 08/29/2023 8:57 AM EDT Plan of Treatment Health Maintenance Due Date Last Done Comments Hepatitis C Screening 1960 Depression Screening 1972 Preventative Health Evaluation 1978 Cervical Cancer Screening (Pap Smear) 1981 Colon Cancer Screening (Colonoscopy) 2005 Breast Cancer Screening (Mammogram) 2010 Shingrix-Zoster Vaccine (1 o f 2) 2010 DTap / Tdap / Td (1 - Tdap) 12/22/2020 12/21/2020 COVID-19 Vaccine (4 - 2023-2 5 season) 2023 03/16/2021, 06/14/2020, 05/24/2020 Influenza Vaccine (#1) 2023 , 03/15/2021, 04/20/2014 Pneumococcal Vaccine (3 of 3 - PPSV23 or PCV20) 2025 05/21/2015, 07/22/2014 Pneumococcal Vaccine (3 of 3 - PPSV23 or PCV20) 2025 05/21/2015, 07/22/2014 RSV Adult > 60+ Yrs or (1 - 1-dose 75+ series) 08/31/2035 Hepatitis B Vaccines Aged Out No long er eligible based on patient's age to complete this topic RSV Ped < 20 months Aged Out No longe r eligible based on patient's age to complete this topic Care Teams Boiler Coverer Helper Relationship Specialty Start Date End Date Pancho Boswell MD [address] [facility] [place] [address] PCP - General 03/21/23
--- OUTSIDE RECORDS SUMMARY | 2024-09-10 10:01 | XMS_ITS | Encounter Summary ---
Author Organization [facility] Address [address] [place] [address] Care Team Providers Care Policyholder Information Clerk Name Role Phone Pancho Boswell MD Primary Care Provider + Kvein Simmons PA-C Unavailable [phone] Encounter Details Date Type Department Care Team Description 01/12/2023 Orders Only Adult Medicine [address] [id number] Lea Jeronimo PA-C [address] [place] [id number] Social History Tobacco Use Types Packs/Day Years Used Date Smoking Tobacco: Former Cigarettes Smokeless Tobacco: Never Comments:less than 10 cigare ttes daily Alcohol Use Standard Drinks/Week Comments Yes 0 (1 standard drink = 0.6 oz pur e alcohol) occ Sex Assigned at Date Recorded Not on file Job Start Date Occupation Industry Not on file Not on file Not on file documented as of this encounter Plan of Treatment Not on file documented as of this encounter Visit Diagnoses Not on filedocumented in this encounter Care Teams Policyholder Information Clerk Relationship Specialty Start Date End Date Pancho Boswell MD [address] [place] [id number] PCP - General Internal Medicine 07/11/22 Kevin Simmons PA-C [address] [place] [phone] Specialist Thoracic Surgery 05/11/23 documented as of this encounter
--- OUTSIDE RECORDS SUMMARY | 2024-09-10 10:01 | XMS_ITS | Encounter Summary ---
Author Organization [facility] Address [address] [place] [address] Care Team Providers Care Review Manager Name Role Phone Pancho Boswell MD Primary Care Provider + Kevin Simmons PA-C Unavailable [phone] Encounter Details Date Type Department Care Team Description 05/11/2023 Orders Only [facility] Lung Screening Program [place] [address] [facility] [address] [place] [phone] Teetee Styles MD [address] [facility] [place] [address] [place] [phone] History of tobacco use Social History Tobacco Use Types Packs/Day Years Used Date Smoking Tobacco: Former Cigarettes Q uit: 04/17/2023 Smokeless Tobacco: Never Comments:less than 10 cigare [...] on file documented as of this encounter Procedures Procedure Name Priority Date/Time Associated Diagnosis Comments CT LOW DOSE LUNG SCREEN ANNUAL Routine 05/11/2023 History of tobacco use documented in this encounter Results * CT LOW DOSE LUNG SCREEN ANNUAL (05/11/2023) Teetee Styles MD CT SCANS documented in this encounter Visit Diagnoses Diagnosis History of tobacco use Personal history of tobacco use, presenting hazards to health documented in this encounter Care Teams Review Manager Relationship Specialty Start Date End Date Pancho Boswell MD [address] [place] [address] PCP - General Internal Medicine 07/11/22 Kevin Simmons PA-C [address] [place] [phone] Specialist Thoracic Surgery 05/11/23 documented as of this encounter
--- OUTSIDE RECORDS SUMMARY | 2024-09-10 10:01 | XMS_ITS | Encounter Summary ---
Author Organization [facility] Address [address] [place] [address] Care Team Providers Care Catcher Filter Tip Name Role Phone Pancho Boswell MD Primary Care Provider + Kevin Simmons PA-C Unavailable [phone] Encounter Details Date Type Department Care Team Description 05/23/2023 Manager Training Report Medical Records [address] [place] [id number] Wyatt Morris PA-C Social History Tobacco Use Types Packs/Day Years [...] on filedocumented in this encounter Care Teams Catcher Filter Tip Relationship Specialty Start Date End Date Pancho Boswell MD [address] [place] [address] PCP - General Internal Medicine 07/11/22 Kevin Simmons PA-C [address] [place] [phone] Specialist Thoracic Surgery 05/11/23 documented as of this encounter
--- OUTSIDE RECORDS SUMMARY | 2024-09-10 10:01 | XMS_ITS | Encounter Summary ---
Author Organization [facility] Address [address] [place] [address] Care Team Providers Care Reliability Technicians Name Role Phone Pancho Boswell MD Primary Care Provider + Kevin Simmons PA-C Unavailable [phone] Encounter Details Date Type Department Care Team Description 08/16/2022 Hand Icer Report Medical Records [address] [place] [address] Wyatt Morris PA-C Social History Tobacco Use [...] file Not on file Not on file COVID-19 Exposure Response Date Recorded In the last 10 days, have yo u been in contact with someone who was confirmed or suspected to have Coronavirus/COVID-19? No / Unsure 08/17/2022 10:56 AM EDT documented as of this encounter Plan of Treatment Not on file documented as of this encounter Visit Diagnoses Not on filedocumented in this encounter Care Teams Reliability Technicians Relationship Specialty Start Date End Date Pancho Boswell MD [address] [place] [address] PCP - General Internal Medicine 07/11/22 Kevin Simmons PA-C [address] [phone] Specialist Thoracic Surgery 05/11/23 documented as of this encounter
--- OUTSIDE RECORDS SUMMARY | 2024-09-10 10:01 | XMS_ITS | Encounter Summary ---
Author Organization [facility] Address [address] [place] [address] Care Team Providers Care Rn Bariatric Name Role Phone Pancho Boswell MD Primary Care Provider + Kevin Simmons PA-C Unavailable [phone] Encounter Details Date Type Department Care Team Description 03/01/2023 Chemical Engineering Teacher Report Medical Records [address] [place] [address] Wyatt Morris PA-C Social History Tobacco Use [...] suspected to have Coronavirus/COVID-19? No / Unsure 02/26/2023 8:57 AM EST documented as of this encounter Plan of Treatment Not on file documented as of this encounter Visit Diagnoses Not on filedocumented in this encounter Care Teams Rn Bariatric Relationship Specialty Start Date End Date Pancho Boswell MD [address] [place] [address] PCP - General Internal Medicine 07/11/22 Kevin Simmons PA-C [address] [place] [phone] Specialist Thoracic Surgery 05/11/23 documented as of this encounter
--- OUTSIDE RECORDS SUMMARY | 2024-09-10 10:01 | XMS_ITS | Encounter Summary ---
Author Organization [facility] Address [address] [place] [address] Care Team Providers Care Emergency Department Physician Name Role Phone Pancho Boswell MD Primary Care Provider + Kevin Simmons PA-C Unavailable [phone] Encounter Details Date Type Department Care Team Description 02/15/2023 Water Meter Reader Report Medical Records [address] [place] [address] Wyatt Morris PA-C Social History Tobacco Use [...] suspected to have Coronavirus/COVID-19? No / Unsure 02/15/2023 2:05 PM EDT documented as of this encounter Plan of Treatment Not on file documented as of this encounter Visit Diagnoses Not on filedocumented in this encounter Care Teams Emergency Department Physician Relationship Specialty Start Date End Date Pancho Boswell MD [address] [place] [address] PCP - General Internal Medicine 07/11/22 Kevin Simmons PA-C [address] [phone] Specialist Thoracic Surgery 05/11/23 documented as of this encounter
--- OUTSIDE RECORDS SUMMARY | 2024-09-10 10:01 | XMS_ITS | Encounter Summary ---
Author Organization [facility] Address [address] [place] [address] Care Team Providers Care Bottler Name Role Phone Mckenzie Alejandre MD Primary Care Provider [phone] Pancho Boswell MD Primary Care Provider + Kevin Simmons PA-C Unavailable [phone] Reason for Visit * Reason Onset Date Comments Swelling 07/06/2022 Encounter Details Date Type Department Care Team Description 07/06/2022 Telephone Internal Medicine - [address], [address] [place] [address] Mckenzie Alejandre MD [address] [place] [address] Swelling Social History Tobacco Use Types Packs/Day Years [...] on file documented as of this encounter Miscellaneous Notes * Telephone Encounter - Gabriel Perry - 07/06/2022 11:15 AM EDT Patient has swelling in both of her legs since the weekend, states she was told by you to come in when it happens. documented in this encounter Plan of Treatment Not on file documented as of this encounter Visit Diagnoses Not on filedocumented in this encounter Care Teams Bottler Relationship Specialty Start Date End Date Mckenzie Alejandre MD [address] [place] [address] PCP - General Internal Medicine 07/06/22 07/10/22 Pancho Boswell MD [address] [place] [address] PCP - General Internal Medicine 07/11/22 Kevin Simmons PA-C [address] [place] [phone] Specialist Thoracic Surgery 05/11/23 documented as of this encounter
--- OUTSIDE RECORDS SUMMARY | 2024-09-10 10:01 | XMS_ITS | Encounter Summary ---
Author Organization [facility] Address [address] [place] [address] Care Team Providers Care Forge Press Operator Name Role Phone Pancho Boswell MD Primary Care Provider + Kevin Simmons PA-C Unavailable [phone] Encounter Details Date Type Department Care Team Description 2022 Telephone Internal Medicine - [address], [address] [place], [place] [phone] Miriam Galvez MD [address] [place] [phone] Social History Tobacco Use Types Packs/Day Years [...] AM EDT documented as of this encounter Miscellaneous Notes * Telephone Encounter - Joyce Cole MA - 09/12/2022 9:19 AM EDT Patient made aware * Telephone Encounter - Gabriel Perry - 09/07/2022 11:14 AM EDT Patient called back, please return. * Telephone Encounter - Joyce Cole MA - 09/07/2022 9:39 AM EDT Lvm to call back ashu * Telephone Encounter - Joyce Cole MA - 08/31/2022 11:56 AM EDT Patient asked who should she reach out to if she has a flare up Her appointment is not until November she says with the specialist * Telephone Encounter - Joyce Cole MA - 2022 10:31 AM EDT Lvm to call back ashu for lab results documented in this encounter Plan of Treatment Not on file documented as of this encounter Visit Diagnoses Not on filedocumented in this encounter Care Teams Forge Press Operator Relationship Specialty Start Date End Date Pancho Boswell MD [address] [place] [address] PCP - General Internal Medicine 07/11/22 Kevin Simmons PA-C [address] [phone] Specialist Thoracic Surgery 05/11/23 documented as of this encounter
--- OUTSIDE RECORDS SUMMARY | 2024-09-10 10:01 | XMS_ITS | Encounter Summary ---
Author Organization [facility] Address [address] [place] [address] Care Team Providers Care Rn Transplant Name Role Phone Pancho Boswell MD Primary Care Provider + Kevin Simmons PA-C Unavailable [phone] Encounter Details Date Type Department Care Team Description 06/13/2023 SCAN Medical Records [address] [place] [address] [facility] Social History Tobacco Use Types Packs/Day Years [...] filedocumented in this encounter Care Teams Rn Transplant Relationship Specialty Start Date End Date Pancho Boswell MD [address] [place], [place] [phone] PCP - General Internal Medicine 07/11/22 Kevin Simmons PA-C [address] [phone] Specialist Thoracic Surgery 05/11/23 documented as of this encounter
--- OUTSIDE RECORDS SUMMARY | 2024-09-10 10:01 | XMS_ITS | Encounter Summary ---
Author Organization [facility] Address [address] [place] [address] Care Team Providers Care Bakery Worker Name Role Phone Eboni Last Md, MD Primary Care Provider Unavailable Eron Sargent MD Primary Care Provider [phone] Mckenzie Alejandre MD Primary Care Provider [phone] Pancho Boswell MD Primary Care Provider + Kevin Simmons PA-C Unavailable [phone] Encounter Details Date Type Department Care Team Description 02/17/2019 [facility] Medical Records [address] [place] [address] Benigno Cloud MD [address] [place] [phone] Social History Tobacco Use Types Packs/Day Years Used Date Smoking Tobacco: Every Day Cigarettes Smokeless Tobacco: Never Comments:Started age 15; max 1/2 PPD; as of 11/08/23, 1/4-1/3PPD Alcohol Use Standard Drinks/Week Comments Yes 0 (1 standard drink = 0.6 oz pur e alcohol) 1 drink every month Education Answer Date Recorded What is the highest level of school you have completed or the highest degree you have received? 12th grade 11/08/2023 Sex Assigned at Date Recorded Not on file Job Start Date Occupation Industry Not on file Not on file Not on file documented as of this encounter Plan of Treatment Not on file documented as of this encounter Visit Diagnoses Not on filedocumented in this encounter Care Teams Bakery Worker Relationship Specialty Start Date End Date Eboni Last MD, MD PCP - General Internal Medicine 02/07/19 1 05/05/18 Eron Sargent MD [address] [place] [address] PCP - General Internal Medicine 03/06/19 07/05/22 Mckenzie Alejandre MD [address] [place] [address] PCP - General Internal Medicine 07/06/22 07/10/22 Pancho Boswell MD [address] [place] [id number] PCP - General Internal Medicine 07/11/22 Kevin Simmons PA-C [address] [place] [phone] Specialist Thoracic Surgery 05/11/23 documented as of this encounter
--- OUTSIDE RECORDS SUMMARY | 2024-09-10 10:01 | XMS_ITS | Encounter Summary ---
Author Organization [facility] Address [address] [place] [address] Care Team Providers Care Piece Meat Trimmer Name Role Phone Pancho Boswell MD Primary Care Provider + Kevin Simmons PA-C Unavailable Reason for Visit * Reason Onset Date Comments medication problems 01/12/2023 Encounter Details Date Type Department Care Team Description 01/12/2023 Telephone Adult Medicine [facility] [address] [place] [phone] Pancho Boswell MD [address] [place] [phone] medication problems Social History Tobacco Use Types Packs/Day Years [...] encounter Miscellaneous Notes * Telephone Encounter - Isa Mahajan M.A. - 01/12/2023 2:27 PM EDT Called pharmacy, order sent with sig inject 2 mg weekly, should be 1.5 mg New order pended * Telephone Encounter - Emelina Flores - 01/12/2023 2:20 PM EDT Looks like this was done by Lea Jeronimo on Patient states pharmacy told her that they have reached out to our office 3x with not response back. Patient is asking that this be sent to pharmacy by end of day as she has been without. Who is calling? The patient Name of the medication Dulaglutide 1.5 MG/0.5ML Solution Pen-injector 2 mL 0 01/09/2023 Sig - Route: Inject 2 mg into the skin once a week. - Subcutaneous What is the specific problem or interaction? Instructions show inject 2mg into skin once a week, pharmacy states they can only gibbs 1.5mg or 3mg. Please clarify If the patient is having a problem with taking the med - how long has the problem been going on? N/A documented in this encounter Plan of Treatment Not on file documented as of this encounter Visit Diagnoses Not on filedocumented in this encounter Care Teams Piece Meat Trimmer Relationship Specialty Start Date End Date Pancho Boswell MD [address] [place] [address] PCP - General Internal Medicine 07/11/22 Kevin Simmons PA-C [address] [place] [phone] Specialist Thoracic Surgery 05/11/23 documented as of this encounter
--- OUTSIDE RECORDS SUMMARY | 2024-09-10 10:01 | XMS_ITS | Encounter Summary ---
Author Organization [facility] Address [address] [place] [address] Care Team Providers Care Bradder Name Role Phone Eron Sargent MD Primary Care Provider Mckenzie Alejandre MD Primary Care Provider Pancho Boswell MD Primary Care Provider + Kevin Simmons PA-C Unavailable Encounter Details Date Type Department Care Team Description 11/24/2020 Orders Only MRI - [place] [address] [place] [address] Benigno Cloud MD [address] [place] [phone] Liver cyst; Hepatic lesion; Abnormal abdominal ultrasound Social History Tobacco Use Types Packs/Day Years Used Date Smoking Tobacco: Light Smoker Cigarettes Smokeless Tobacco: Never Comments:less than 10 [...] Procedure Name Priority Date/Time Associated Diagnosis Comments MRI ABD W/WO CONTRAST Routine 11/23/2020 Liver cyst Hepatic lesion Abnormal abdominal ultrasound documented in this encounter Results * MRI ABD W/WO CONTRAST (11/23/2020) Benigno Cloud MD MRI [facility] [address] [place] [address] documented in this encounter Visit Diagnoses Diagnosis Liver cyst Other specified disorders of liver Hepatic lesion Other specified disorders of liver Abnormal abdominal ultrasound Nonspecific (abnormal) findings on radiological and other examination of abdominal area, including retroperitoneum documented in this encounter Care Teams Bradder Relationship Specialty Start Date End Date Eron Sargent MD [address] [place] [id number] PCP - General Internal Medicine 03/06/19 07/05/22 Mckenzie Alejandre MD [address] [place] [id number] PCP - General Internal Medicine 07/06/22 07/10/22 Pancho Boswell MD [address] [place] [address] PCP - General Internal Medicine 07/11/22 Kevin Simmons PA-C [address] [place] [phone] Specialist Thoracic Surgery 05/11/23 documented as of this encounter
--- OUTSIDE RECORDS SUMMARY | 2024-09-10 10:01 | XMS_ITS | Clinical Summary ---
Author Organization [facility] [address] [place] [address] [place] [address] [place] [phone] Phone Care Team Providers Care Child Life Therapist Name Role Phone Pancho Boswell MD Primary Care Pr ovider Allergies Active Allergy Reactions Criticality Noted Date Comments Bisacodyl Rash 05/29/2024 rash Bupropion 07/11/2021 Hives Hives Medications adalimumab (Humira) 40 mg/0.8 mL syringe Inject 0.8 mL (40 mg total) under the skin once a week. Active cyclobenzaprine (FLEXERIL) 5 mg tablet TAKE 1 TABLET BY MOUTH AT BEDTIME NEEDED FOR MUSCLE SPASMS, DO NOT DRIVE WHILE ON THIS MEDICATION 023 Active folic acid (FOLVITE) 1 mg tablet Take 1 Tablet by mouth daily. 023 Active methotrexate 2.5 mg tablet Take 1 tablet (2.5 mg total) by mouth every 7 days. Six tablets weekly Active losartan (COZAAR) 50 mg tabletIndications :Primary hypertension Take 1 tablet (50 mg total) by mouth 1 (one) time each day. 90 each 1 025 2024 Active atorvastatin (LIPITOR) 20 mg tabletIndications :Mixed hyperlipidemia Take 1 tablet (20 mg total) by mouth at bedtime. 90 tablet 1 025 Active hydroCHLOROthiazi de (HYDRODIURIL) 25 mg tabletIndications :Primary hypertension Take 1 tablet (25 mg total) by mouth 1 (one) time each day. 90 each 1 025 2024 Active fluocinolone (Synalar) 0.025 % creamIndications: Venous stasis dermatitis of both lower extremities,Varic ose veins of both lower extremities with inflammation,Veno us insufficiency of both lower extremities Apply topically 2 (two) times a day. To lower extremity 60 g 1 025 Active tirzepatide (MOUNJARO) 2.5 mg/0.5 mL injectionIndicati ons:Prediabetes,S evere obesity (BMI 35.0-39.9) with comorbidity (CMS/HCC V24, CMS/[facility] V28) Inject 0.5 mL (2.5 mg total) under the skin every 7 (seven) days. 2 mL Active cephalexin (KEFLEX) 500 mg capsule Take 1 capsule (500 mg total) by mouth 2 (two) times a day. 025 2024 Discontinued tirzepatide, weight loss, (Zepbound) 2.5 mg/0.5 mL injectionIndicati ons:Severe obesity (BMI 35.0-39.9) with comorbidity (CMS/HCC V24, CMS/HCC V28) Inject 0.5 mL (2.5 mg total) under the skin every 7 (seven) days. 2 mL 025 2024 Discontinued tirzepatide (MOUNJARO) 2.5 mg/0.5 mL injectionIndicati ons:Prediabetes,S evere obesity (BMI 35.0-39.9) with comorbidity (CMS/HCC V24, CMS/[facility] V28) Inject 0.5 mL (2.5 mg total) under the skin every 7 (seven) days. 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 Likely related to tobacco use. 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 Continue current meds. Orders: Comprehensive metabolic panel; Future losartan (COZAAR) 50 mg tablet; Take 1 tablet (50 mg total) by mouth 1 (one) time each day. hydroCHLOROthiazide (HYDRODIURIL) 25 mg tablet; Take 1 tablet (25 mg total) by mouth 1 (one) time each day. Prediabetes 09/05/2022 Assessment & Plan (05/07/2024 10:56 AM EST): Will update A1c Orders: Hemoglobin A1c; Future Severe obesity (BMI 35.0-39. 9) with comorbidity (CMS/HCC V24, CMS/HCC V28) 09/05/2022 Assessment & Plan (08/18/2024 5:43 PM EDT): Weight has plateaud on Trulicity 4.5 mg weekly Switch to zepbound. Counseled on possible side effects of the medication. She does have some drug-induced constipation from the Trulicity. Addressed below. Orders: tirzepatide, weight loss, (Zepbound) 2.5 mg/0.5 mL injection; Inject 0.5 mL (2.5 mg total) under the skin every 7 (seven) days. Mixed stress and urge urinary incontinence 03/29 Overview (05/07/2024): Follows with urology. Last Assessment & Plan: Will continue with pessary in place. Tobacco use disorder 03/29/2021 Assessment & Plan (05/07/2024 10:56 AM EST): Smoking cessation counselling provided Abdominal wall mass of left upper quadrant 02/12 Liver cyst 02/12/2019 Psoriatic arthritis ([facility]/HCC V24, CMS/HCC V28) 0 11/14/2013 Assessment & Plan (05/07/2024 10:56 AM EST): As above Hyperlipidemia 10/31/2013 Assessment & Plan (05/07/2024 10:56 AM EST): Continue atorvastatin Orders: Lipid panel with reflex to direct LDL; Future atorvastatin (LIPITOR) 20 mg tablet; Take 1 tablet (20 mg total) by mouth at bedtime. Psoriasis 10/31/2013 Assessment & Plan (05/07/2024 10:56 AM EST): Continue rheumatology follow up. Continue humira, folic acid and methotrexate Encounters Date Type Department Care Team Description 08/25/2024 Telephone Adult Medicine [address] [phone] Pancho Boswell MD 08/19/2024 1:42 PM EDT - 08/19/2024 11:59 PM EDT Hospital Encounter [address] [phone] Left ankle pain, unspecified chronicity; Achilles tendinitis of left lower extremity Discharge Disposition: Home or Self Care 08/19/2024 1:30 PM EDT Office Visit Adult [address] [phone] Lea Aguero PA Wound of left leg, initial encounter (Primary Dx); Encounter for removal of sutures; Left ankle pain, unspecified chronicity; Achilles tendinitis of left lower extremity; Prediabetes; Severe obesity (BMI 35.0-39.9) with comorbidity (CMS/[facility] V24, [facility] V28) 08/18/2024 Telephone Adult Medicine [address] [phone] Pancho Boswell MD 08/18/2024 Telephone Adult Medicine [address] [phone] Pancho Boswell MD Medication Problem (zepbound) 08/15/2024 [place] [address] [phone] Pancho Boswell MD 07/18/2024 9:00 AM EDT Ancillary Procedure [facility] [address] [place] [phone] Systolic murmur 07/11/2024 8:30 AM EDT Consult Vascular Surgery - [place] [address] [place] [phone] Leo Allred MD Venous insufficiency of both lower extremities (Primary Dx); Venous stasis dermatitis of both lower extremities; Varicose veins of both lower extremities with inflammation 06/30/2024 8:30 AM EDT Office Visit Obstetrics and Gynecology - [address] [phone] Renae Morales MD Encounter for gynecological examination without abnormal finding (Primary Dx); Cervical cancer screening; Screening for cervical cancer from Last 3 Months Immunizations Name Administration Dates Next Due Influenza Quadravalent, MDCK , 0.5ml, preservative free (Flucelvax) 6mo and older 02/12/2023 Influenza trivalent, 0.5mL, preservative free (Fluarix; FluLaval; Fluzone) ages 6mo and older (Afluria) 3 years and older 01/03/2024 Influenza trivalent, with pr eservative (Fluzone; Afluria) 6mo and older 03/15/2021,04/20/2014 Pfizer Covid-19 Bivalent, Or iginal + Ba.1 (Non-US Trademark [employer] Bivalent) 02/15/2022 Pneumococcal conjugate 13 va lent (Prevnar 13, PCV13) 2mo and older 05/21/2015 Pneumococcal polysaccharide 23 valent (Pneumovax 23) 2yo and older 07/22/2014 Td Tetanus diptheria (Tdvax) 7yo and older 12/21 Zoster recombinant (Shingrix) 19yo and older Surgical History Surgery Date Site/Laterality Comments CHOLECYSTECTOMY PROCEDURE: HISTORICAL CHOLECYSTECTOMY EXCISION BENIGN SKIN LESION TRUNK / ARM / LEG 01/2019 PROCEDURE: DE EXCISION TUMOR SOFT TISSUE BACK/FLANK SUBQ <3CM; COMMENT: trunk lipoma removal CERVICAL BIOPSY W/ LOOP ELECTRODE EXCISION PROCEDURE: HISTORICAL CONE BIOPSY BREAST BIOPSY PROCEDURE: BX BREAST; PERC NEEDLE CORE W/IMAG GUID; COMMENT: rt - neg Medical History Medical History Date Comments Cervical dysplasia DX:Cervical d ysplasia Family History Medical History Relation Name Comments No Known Problems Father unknown No Known Problems Maternal Grandfather unknown Dementia Maternal Grandmother Dementia Mother No Known Problems Paternal Grandfather unknown No Known Problems Paternal Grandmother unknown Heart attack Sister x 1 in her 50s; HTN , seizures beginning age 57 Relation Name Status Comments Daughter Alive Father unknown Other Maternal Grandfather unknown Maternal Grandmother Mother Alive Paternal Grandfather unknown Other Paternal Grandmother unknown Other Sister x 1 Alive Social History Tobacco Use Types Packs/Day Years Used Date Smoking Tobacco: Every Day Smokeless Tobacco: Never Tobacco Cessation:Ready to Q uit: Not Asked; Counseling Given: Not Answered Alcohol Use Standard Drinks/Week Comments Yes 0 (1 standard drink = 0.6 oz pur e alcohol) Housing Instability Answer Date Recorde d Are you worried that in the next 2 months you may not have stable housing? No 06/29/2024 Food Access & Nutrition Answer Date Rec orded Do you have access to a vari ety of food including fruits and vegetables? Yes 06/29/2024 Access to Healthcare Answer Date Record ed Within the last 3 months, crys amato many times did you visit the emergency department for your medical care? 0 06/29/2024 Health Literacy Answer Date Recorded How often do you need to hav e someone help you when you read instructions, pamphlets, or other written material from your doctor or pharmacy? Never 06/29/2024 Caregiver: How often do you need to have someone help you when you read instructions, pamphlets, or other written material from your doctor or pharmacy? Not on file 06/29/2024 Financial Risk Answer Date Recorded How hard is it for you to pa y for the very basics like food, housing, medical care, and air conditioning / heating? Not very hard 06/29/2024 Transportation Answer Date Recorded Has the lack of transportati on kept you from meetings, work, or from getting things needed for daily living? No Has the lack of transportati on kept you from medical appointments or from getting medications? No 06/29/2024 Social Isolation Answer Date Recorded How often do you feel lonely or isolated from those around you? Sometimes 06/29/2024 Food Risk Answer Date Recorded Within the past 12 months we worried whether our food would run out before we got money to buy more. Never true 06/29/2024 Within the past 12 months th e food we bought just didn't last and we didn't have money to get more. Never true 06/29/2024 Dependent Care Answer Date Recorded Do you need help finding or paying for care for your loved ones. For example, early childhood associate teacher or elderly care for an older adult? No 06/29/2024 Education Answer Date Recorded Do you think completing more education or training, like finishing a GED, going to college, or learning a trade, would be helpful for you? No 06/29/2024 Employment and Income Answer Date Recor ded During the last four weeks, have you been actively looking for work? No 06/29/2024 Living Situation Answer Date Recorded What is your living situation? 0 06/29/2024 Comments No Sex and Gender Information Value Date Recorded Sex Assigned at Female 05/13/2024 4:27 PM EST Legal Sex Female 4:24 AM EST Gender Identity Female 05/13/2024 4:27 PM EST Sexual Orientation Straight 05/13/2024 4: 27 PM EST Obstetrics History Para Term AB IAB SAB Ectopic Multiple Livin g Live Births 1 04 23 15 Date Outcome GA Total Labor Labor/2nd/3rd Weight Sex Type Anes PTL Jaclyn A1 A5 Name Clin Term Last Filed Vital Signs Vital Sign Reading Time Taken Comments Blood Pressure 114/86 08/19/2024 1:06 PM EDT Pulse 81 08/19/2024 1:06 PM EDT Temperature 36.8 ??C (98.2 ??F) 08/19/2024 1:06 PM ED T Respiratory Rate 17 08/19/2024 1:06 PM EDT Oxygen Saturation - - Inhaled Oxygen Concentration - - Weight 99.8 kg (220 lb) 08/19/2024 1:06 PM EDT Height 162.6 cm (5' 4 ) 08/19/2024 1:06 PM EDT Body Mass Index 37.76 08/19/2024 1:06 PM EDT Plan of Treatment Upcoming Encounters Date Type Department Care Team (Late st Contact Info) Description 11/18/2024 8:15 AM EDT Consult Orthopedic Surgery - [place] [id number] [phone] Anton Baker DPM [address] [phone] 11/21/2024 8:30 AM EDT Office Visit Adult Medicine [address] [phone] Pancho Boswell MD [address] [place] [id number] Health Maintenance Due Date Last Done Comments Pneumococcal Vaccine: 50+ Years (3 of 3 - PCV20 or PCV21) 05/21/2020 05/21/2015, 07/22/2014 Pneumococcal Vaccine: Pediatrics (0 to 5 Years) and At-Risk Patients (6 to 64 Years) (3 of 3 - PCV20 or PCV21) 05/21/2020 05/21/2015, 07/22/2014 RSV Immunization Adult Patients (1 - Risk 60-74 years 1-dose series) 2020 HIV Screening 04/01/2022 Zoster Vaccines (2 of 2) 04/16/2024 02/20/2024 COVID-19 Vaccine (5 - Pfizer risk 2023- season) 2024 04/13/2024, 03/16/2021, 06/14/2020, Additional history exists Hypertension/CHF/CAD Annual BMP Blood Test 05/07/2025 05/07/2024, 08/23/2023 Depression Screening 06/29/2025 06/29/2024 Social Influencers of Health Screening 06/29/2025 06/29/2024 Colorectal Cancer Screening: FIT-DNA (Cologuard) 08/31/2025 Postponed from 04/01/2022 (Supply/Drug Shortage) Breast Cancer Screening 03/05/2026 03/05/20, 02/15/2023, 02/14/2022, Additional history exists Cholesterol Screening (Lipid Panel) 05/07/2029 05/07/2024, 12/21/2023 Cervical Cancer Screening: HPV 06/30/2029 06/30/2024, 06/30/2024 DTaP,Tdap,and Td Vaccines (2 - Td or Tdap) 12/21/2030 12/21/2020 Influenza Vaccine Completed 01/03/2024, , 03/15/2021, Additional history exists Hepatitis C Screening Completed 05/07/2024 HIB Vaccines Aged Out No longer eligi ble based on patient's age to complete this topic HPV Vaccines Aged Out No longer eligi ble based on patient's age to complete this topic Hepatitis A Vaccines Discontinued Hepatitis B Vaccines Discontinued IPV Vaccines Aged Out No longer eligi ble based on patient's age to complete this topic MMR Vaccines Aged Out No longer eligi ble based on patient's age to complete this topic Meningococcal ACWY Vaccine Aged Out N o longer eligible based on patient's age to complete this topic Meningococcal B Vaccine Aged Out No l onger eligible based on patient's age to complete this topic RSV Immunization Patients Under 20 months Aged Out No longer eligible based on patient's age to complete this topic Varicella Vaccines Aged Out No longer eligible based on patient's age to complete this topic Procedures Procedure Name Priority Date/Time Associated Diagnosis Comments XR ANKLE 3+ VIEWS LEFT Routine 5 1:56 PM EDT Left ankle pain, unspecified chronicity Achilles tendinitis of left lower extremity TRANSTHORACIC ECHOCARDIOGRAM (TTE) COMPLETE Routine 07/18/2024 9:43 AM EDT Systolic murmur PAP SMEAR Routine 06/30/2024 10:50 AM EDT Screening for cervical cancer HPV GENOTYPE Routine 06/30/2024 10:50 AM EDT Screening for cervical cancer HPV WITH REFLEX GENOTYPE Routine 06/30/2024 10:50 AM EDT Screening for cervical cancer HEPATITIS C ANTIBODY Routine 05/07/2024 9:50 AM EST Need for hepatitis C screening test COMPREHENSIVE METABOLIC PANEL Routine 05/07/2024 9:50 AM EST Primary hypertension LIPID PANEL WITH REFLEX TO DIRECT LDL Routine 05/07/2024 9:50 AM EST Mixed hyperlipidemia MG MAMMO DIGITAL DIAGNOSTIC W ALFONZO BILAT Routine 03/05/2024 8:22 AM EST Encounter for screening mammogram for breast cancer from Last 3 Months or Most Recently Relevant to Health Maintenance Results * XR Ankle 3+ Views Left (08/19/2024 1:56 PM EDT) Anatomical Region Laterality Modality Lower Extremities, Ankle Left Radiogr aphic Imaging 08/20/2024 1:08 AM EDT Impressions 08/20/2024 1:12 AM EDT Small posterior calcaneal spur. POS - [id number] -------- FINAL REPORT -------- Dictated By: Celia Rios Dictated Date: 08/20/2024 01:08 ET Assigned Physician: Celia Rios Reviewed and Electronically Signed By: Celia Rios Signed Date: 08/20/2024 01:12 ET Workstation ID: [id number] Transcribed By: Self Edit Transcribed Date: 08/20/2024 01:08 ET Narrative 08/20/2024 1:12 AM EDT EXAM: Left ankle x-ray HISTORY: Left Achilles pain. COMPARISON: 10/21/2014 FINDINGS: 3 views were performed. No acute fracture detected. ??Ankle mortise is maintained. ??Talar dome has a smooth contour. ??Joint spaces are preserved. ??No significant change in the small posterior calcaneal spur. Procedure Note Celia Rios MD - 08/20/2024 EXAM: Left ankle x-ray HISTORY: Left Achilles pain. COMPARISON: 10/21/2014 FINDINGS: 3 views were performed. No acute fracture detected. Ankle mortise is maintained. Talar dome hasa smooth contour. Joint spaces are preserved. No significant change inthe small posterior calcaneal spur. IMPRESSION: Small posterior calcaneal spur. POS - [id number] -------- FINAL REPORT -------- Dictated By: Celia Rios Dictated Date: 08/20/2024 01:08 ET Assigned Physician: Celia Rios Reviewed and Electronically Signed By: Celia Rios Signed Date: 08/20/2024 01:12 ET Workstation ID: [id number] Transcribed By: Self Edit Transcribed Date: 08/20/2024 01:08 ET Lea DE OLIVEIRA IMG XR PROCEDURES Final Resul t * (ABNORMAL) TRANSTHORACIC ECHOCARDIOGRAM (TTE) COMPLETE (07/18/2024 9:43 AM EDT) Left Atrium Minor [place] 5.0 cm CV PACS Left Atrium Major [place] 4.3 cm CV PACS LA Area Sys (A2C) 17 cm2 CV PACS LA Area Sys (A4C) 12 cm2 CV PACS LA Volume (BP) 37 mL CV PACS RA Area 10.9 cm2 CV PACS RA 2D Volume 22 mL CV PACS AV Mean Gradient 5 mmHg CV PACS Ao VTI 35.9 cm CV PACS AV Peak Bruce 1.6 m/s CV PACS AV Peak Gradient 10 mmHg CV PACS AV Area Continuity Equation 2.8 cm2 CV PACS AV Area Peak Velocity 2.7 cm2 CV PACS Aortic Arch 2.9 cm CV PACS Aortic Sinus Valsalva 3.1 cm CV PACS IVC Proximal 1.4 cm CV PACS IVSD 1.2(A) 0.6 - 0.9 cm CV PACS LVIDD 5.0 3.8 - 5.2 cm CV PACS LVIDS 3.3 2.2 - 3.5 cm CV PACS LVOT Diameter 2.2 cm CV PACS LVOT Mean Grad 2 mmHg CV PACS LVOT Peak VTI 26.4 cm CV PACS LVOT Mean Bruce 0.7 m/s CV PACS LVOT Peak Bruce 1.1 m/s CV PACS LVOT Peak Gradient 5 mmHg CV PACS LVPWD 1.0(A) 0.6 - 0.9 cm CV PACS MV E' Tissue Velocity Lateral 10 cm/s CV PACS MV E' Tissue Velocity Septal 8 cm/s CV PACS LVOT Area 3.8 cm2 CV PACS LVOT Stroke Volume 100 mL CV PACS MV Deceleration [place] 3.9 m/s2 CV PACS E Wave Deceleration Time 215 119 - 242 ms CV PACS MV PHT 63 ms CV PACS MV Peak A Bruce 0.74 m/s CV PACS MV Peak E Bruce 0.84 m/s CV PACS MV Area PHT 3.5 cm2 CV PACS PV Acceleration Time 116 ms CV PACS PV Peak Velocity 0.8 m/s CV PACS PV Peak Gradient 3 mmHg CV PACS RV Diastolic Basal Dimension 2.9 2.5 - 4.1 cm CV PACS TAPSE 24 mm CV PACS TR Peak Velocity 1.99 m/s CV PACS TR Peak Gradient 16 mmHg CV PACS E/E' Ratio Septal 11 CV PACS E/E' Ratio Averaged 9 CV PACS LVOT Stroke Index 49 mL/m2 CV PACS Relative Wall Thickness ratio 0.40 CV PACS LVOT:AV VTI Index 0.74 CV PACS FS 34 % CV PACS LV Mass 2D 207 g CV PACS LVOT flow 266 mL/s CV PACS RA 2D Volume Index 11 mL/m2 CV PACS MICHELLE Index (VTI) 1.37 cm2/m2 CV PACS MICHELLE Index (Pk Bruce) 1.32 cm2/m2 CV PACS LVIDD Index 2.45 cm/m2 CV PACS LVIDS Index 1.62 cm/m2 CV PACS AV Velocity Ratio 0.69 CV PACS E/A Ratio 1.1 CV PACS E/E' Ratio Lateral 8 CV PACS LA Volume Index (BP) 18 mL/m2 CV PACS LV Mass Index 2D 102 g/m2 CV PACS BSA 2.12 m2 CV PACS Right Ventricular Peak Systolic Pressure 19 mmHg CV PACS Est. RA Pressure 3 mmHg CV PACS Anatomical Region Laterality Modality Ultrasound Narrative 07/23/2024 4:24 PM EDT ?Left ventricle cavity size is normal. ??Wall thickness at the upper limits of normal left ventricular systolic function is in the normal range with an ejection fraction of 55-60%. ??Normal parameters of diastolic function. ??No wall motion abnormalities. ?Right ventricle cavity is normal. Right ventricular systolic function is normal. ?Normal left and right atrium ?No significant valvular abnormalities. ?No prior echo for comparison. Left Ventricle Left ventricle cavity size is normal. There is mild hypertrophy. Systolic function is normal with an ejection fraction of 55-60%. There are no regional LV wall motion abnormalities. There is no diastolic dysfunction. Right Ventricle Right ventricle cavity appears normal. Systolic function is normal. Left Atrium Left atrium cavity size is normal. Right Atrium Right atrium cavity is normal. Mitral Valve Mitral valve structure is normal. There is annular calcification. There is mild regurgitation. There is no evidence of mitral valve stenosis. Tricuspid Valve The leaflets are not thickened. There is trace regurgitation. There is no evidence of tricuspid valve stenosis. Aortic Valve The aortic valve is trileaflet. There is no regurgitation or stenosis. Pulmonic Valve Visualized portions of the pulmonic valve appear normal. No significant pulmonic valve regurgitation. There is no evidence of pulmonic valve stenosis. Ascending Aorta The Sinus of Valsalva is (3.1 cm). The ascending aorta is not well visualized, but appears normal. Pericardium Pericardium appears normal. Study Details Overall the study quality was adequate. Pancho Boswell MD CV ECHO PROCEDUR ES Final Result * HPV genotype (06/30/2024 10:50 AM EDT) HPV Type 16 Negative Negative LAB MICROBIOLOGY METHOD 07/03/2024 1:48 PM EDT [facility] HPV Type 18/45 Negative Negative LAB MICROBIOLOGY METHOD 07/03/2024 1:48 PM EDT [facility] HPV Type 16,18, and others Valid LAB MICROBIOLOGY METHOD 07/03/2024 1:48 PM EDT [facility] Brushing/Spatula Cervix uteri structure / Unknown 06/30/2024 10:50 AM EDT 07/01/2024 5:59 AM EDT Renae Morales MD LAB MOLECULAR DIAGNOSTICS O RDERABLES Final Result Performing Organization Address [facility]/ZIP Co de Phone Number [facility] [address] [place] [address], [place] [phone] * (ABNORMAL) HPV with reflex genotype (06/30/2024 10:50 AM EDT) HPV Positive( A) Negative LAB MICROBIOLOGY METHOD 07/01/2024 5:15 PM EDT [facility] Brushing/Spatula Cervix uteri structure / Unknown 06/30/2024 10:50 AM EDT 07/01/2024 5:59 AM EDT Renae Morales MD LAB MOLECULAR DIAGNOSTICS O RDERABLES Final Result [facility] [address] [place] [address], [place] [phone] * (ABNORMAL) Pap smear (06/30/2024 10:50 AM EDT) Interpretation Low grade squamous intraepithelial lesion(A) 07/03/2024 1:37 PM EDT [facility] General Categorization Epithelial cell abnormality, see interpretation 07/03/2024 1:37 PM EDT [facility] Specimen Adequacy Satisfactory for evaluation, endocervical/garza sformation zone component present 07/03/2024 1:37 PM EDT [facility] Pap Methodology Liquid Based Pap Test 07/03/2024 1:37 PM EDT [facility] Disclaimer The Pap test is a screening test which carries an inherent false negative rate. These test results should be correlated with the patient's clinical findings and history. This Pap test was processed using an automated screening system. Technical cytopathology services provided by [facility], at [address] [place] [id number] (CLIA # [id number]/Eulalio Taylor MD, [employer]work Finisher Hand.) 07/03/2024 1:37 PM EDT [facility] Console Pap Interpretation Reported 07/03/2024 1:37 PM EDT [facility] Brushing/Spatula Cervix uteri structure / Unknown 06/30/2024 10:50 AM EDT 06/30/2024 10:50 AM EDT Renae Morales MD LAB CYTOLOGY ORDERABLES Fin al Result [facility] [address] [place] [address], * Hepatitis C antibody (05/07/2024 9:50 AM EST) Hepatitis C Antibody Negative Negative LAB CHEMISTRY METHOD 05/07/2024 12:56 PM EST [facility] Blood Venous blood specimen / Unknown Venipuncture / Unknown 05/07/2024 9:50 AM EST 05/07/2024 9:50 AM EST Pancho Boswell MD LAB BLOOD ORDERA BLES Final Result [facility] [address] [place] [address], [place] [phone] * Lipid panel with reflex to direct LDL (05/07/2024 9:50 AM EST) Cholesterol 146 0 - 200 mg/dL LAB CHEMISTRY METHOD 05/07/2024 12:17 PM EST [facility] Triglycerides 78 0 - 150 mg/dL LAB CHEMISTRY METHOD 05/07/2024 12:17 PM EST [facility] HDL 54 >=40 mg/dL LAB CHEMISTRY METHOD 05/07/2024 12:17 PM EST [facility] LDL Calculated 76 0 - 100 mg/dL LAB CHEMISTRY METHOD 05/07/2024 12:17 PM EST [facility] VLDL Cholesterol Osvaldo 15.6 mg/dL LAB CHEMISTRY METHOD 05/07/2024 12:17 PM EST [facility] Non HDL Chol. (LDL+VLDL) 92 <145 mg/dL LAB CHEMISTRY METHOD 05/07/2024 12:17 PM EST [facility] Chol/HDL Ratio 2.7 0.0 - 4.4 LAB CHEMISTRY METHOD 05/07/2024 12:17 PM [facility] Blood Venous blood specimen / Unknown Venipuncture / Unknown 05/07/2024 9:50 AM EST 05/07/2024 9:50 AM EST Pancho Boswell MD LAB BLOOD ORDERA BLES Final Result [facility] [address] [place] [address], [place] [phone] * Comprehensive metabolic panel (05/07/2024 9:50 AM EST) Sodium 141 133 - 145 mmol/L LAB CHEMISTRY METHOD 05/07/2024 12:17 PM [facility] Potassium 4.2 3.5 - 5.5 mmol/L LAB CHEMISTRY METHOD 05/07/2024 12:17 PM [facility] Chloride 106 96 - 110 mmol/L LAB CHEMISTRY METHOD 05/07/2024 12:17 PM [facility] CO2 31 21 - 32 mmol/L LAB CHEMISTRY METHOD 05/07/2024 12:17 PM [facility] Anion Gap 4 3 - 11 LAB CHEMISTRY METHOD 05/07/2024 12:17 PM [facility] Glucose 93 70 - 100 mg/dL LAB CHEMISTRY METHOD 05/07/2024 12:17 PM [facility] BUN 12 5 - 25 mg/dL LAB CHEMISTRY METHOD 05/07/2024 12:17 PM [facility] Creatinine 0.93 0.50 - 1.10 mg/dL LAB CHEMISTRY METHOD 05/07/2024 12:17 PM [facility] eGFR 69 >=60 mL/min/1. 73m2 LAB CHEMISTRY METHOD 05/07/2024 12:17 PM [facility] Comment:Calculation based on the??Chronic Kidney Disease Epidemiology Collaboration (CKD-EPI) equation refit??without adjustment for race. BUN/Creatinine Ratio 12.9 LAB CHEMISTRY METHOD 05/07/2024 12:17 PM [facility] Calcium 9.2 8.5 - 10.5 mg/dL LAB CHEMISTRY METHOD 05/07/2024 12:17 PM [facility] AST (SGOT) 16 10 - 42 unit/L LAB CHEMISTRY METHOD 05/07/2024 12:17 PM [facility] ALT (SGPT) 23 10 - 60 unit/L LAB CHEMISTRY METHOD 05/07/2024 12:17 PM [facility] Alkaline Phosphatase 79 42 - 121 unit/L LAB CHEMISTRY METHOD 05/07/2024 12:17 PM [facility] Total Protein 6.8 6.0 - 8.0 g/dL LAB CHEMISTRY METHOD 05/07/2024 12:17 PM EST [facility] Albumin 3.5 3.2 - 5.0 g/dL LAB CHEMISTRY METHOD 05/07/2024 12:17 PM EST [facility] Total Bilirubin 0.3 0.0 - 1.4 mg/dL LAB CHEMISTRY METHOD 05/07/2024 12:17 PM EST [facility] Blood Venous blood specimen / Unknown Venipuncture / Unknown 05/07/2024 9:50 AM EST 05/07/2024 9:50 AM EST Pancho Boswell MD LAB BLOOD ORDERA BLES Final Result [facility] [address] [place] [address], * MG Mammo Digital Diagnostic w Alfonzo bilat (03/05/2024 8:22 AM EST) Anatomical Region Laterality Modality Breast Bilateral Mammography 03/05/2024 8:44 AM EST Impressions 03/05/2024 9:29 AM EST Stable mammographic appearance of the breasts. ??No evidence of malignancy is seen. ??Unremarkable left breast ultrasound. A negative mammogram in the presence of a clinically suspicious palpable abnormality does not preclude the possibility of malignancy or alter the indications for biopsy. BI-RADS: ??Category 1: Negative RECOMMENDATION(S): 1: Routine screening mammogram BILATERAL in 1 year. Mammo Location: [facility], [address] [place] [address], [id number], . -------- FINAL REPORT -------- Dictated By: Eula Chowdary Dictated Date: 03/05/2024 08:44 ET Assigned Physician: Eula Chowdary Reviewed and Electronically Signed By: Eula Chowdary Signed Date: 03/05/2024 09:29 ET Workstation ID: [id number] Transcribed By: Self Edit Transcribed Date: 03/05/2024 08:50 ET Narrative 03/05/2024 9:29 AM EST EXAM: (MG MAMMO DIGITAL DIAGNOSTIC W ALFONZO BILATERAL; LEFT BREAST ULTRASOUND EXAM DATE: 03/05/2024 8:05 AM HISTORY: ??follow up from ct COMPARISON: Mammograms dating back to 02/09/2021 with most recent of 02/15/2023. ??CT lung screening low dose 05/11/2023. TECHNIQUE: Bilateral digital breast tomosynthesis was performed in the CC and MLO projections. Computer aided detection with [employer] AI 3D 3.1 was employed. ??Ultrasound evaluation of the lower outer quadrant of the left breast was performed. TISSUE DENSITY: b. There are scattered areas of fibroglandular density. FINDINGS: No suspicious masses, grouped microcalcifications, or areas of architectural distortion are seen. The skin and vascularity are unremarkable. There is no cyst or solid mass in the lower outer left breast. Procedure Note Eula Chowdary MD - 03/05/2024 EXAM: (MG MAMMO DIGITAL DIAGNOSTIC W ALFONZO BILATERAL; LEFT BREASTULTRASOUND EXAM DATE: 03/05/2024 8:05 AM HISTORY: follow up from ct COMPARISON: Mammograms dating back to 02/09/2021 with most recent of02/15/2023. CT lung screening low dose 05/11/2023. TECHNIQUE: Bilateral digital breast tomosynthesis was performed in the CCand MLO projections. Computer aided detection with [employer] AI 3D 3.1was employed. Ultrasound evaluation of the lower outer quadrant of theleft breast was performed. TISSUE DENSITY: b. There are scattered areas of fibroglandular density. FINDINGS: No suspicious masses, grouped microcalcifications, or areas ofarchitectural distortion are seen. The skin and vascularity areunremarkable. There is no cyst or solid mass in the lower outer left breast. IMPRESSION: Stable mammographic appearance of the breasts. No evidence of malignancyis seen. Unremarkable left breast ultrasound. A negative mammogram in the presence of a clinically suspicious palpableabnormality does not preclude the possibility of malignancy or alter theindications for biopsy. BI-RADS: Category 1: Negative RECOMMENDATION(S): 1: Routine screening mammogram BILATERAL in 1 year. Mammo Location: [facility], [address] [place] [address], [id number], . -------- FINAL REPORT -------- Dictated By: Eula Chowdary Dictated Date: 03/05/2024 08:44 ET Assigned Physician: Eula Chowdary Reviewed and Electronically Signed By: Eula Chowdary Signed Date: 03/05/2024 09:29 ET Workstation ID: [id number] Transcribed By: Self Edit Transcribed Date: 03/05/2024 08:50 ET Pancho Boswell MD IMG BI PROCEDURE S Final Result from Last 3 Months or Most Recently Relevant to Health Maintenance Insurance [facility] [place] [address] Care Teams Child Life Therapist Relationship Specialty Start Date End Date Pancho Boswell MD [address] [place] [id number] PCP - General 03/21/23
--- OUTSIDE RECORDS SUMMARY | 2024-09-10 10:01 | XMS_ITS | Encounter Summary ---
Author Organization [facility] Address [address] [place] [address] Care Team Providers Care Tanker Service Attendant Name Role Phone Eron Sargent MD Primary Care Provider [phone] Mckenzie Alejandre MD Primary Care Provider [phone] Pancho Boswell MD Primary Care Provider + Kevin iSmmons PA-C Unavailable [phone] Encounter Details Date Type Department Care Team Description 06/20/2022 Youth Associate Report Medical Records [address] [place] [id number] Jose Ramon Ying DO Social History Tobacco Use Types Packs/Day Years [...] suspected to have Coronavirus/COVID-19? No / Unsure 05/30/2022 10:10 AM EST documented as of this encounter Plan of Treatment Not on file documented as of this encounter Visit Diagnoses Not on filedocumented in this encounter Care Teams Tanker Service Attendant Relationship Specialty Start Date End Date Eron Sargent MD [address] [place], [place] [phone] PCP - General Internal Medicine 03/06/19 07/05/22 Mckenzie Alejandre MD [address] [place], [place] [phone] PCP - General Internal Medicine 07/06/22 07/10/22 Pancho Boswell MD [address] [place] [phone] PCP - General Internal Medicine 07/11/22 Kevin Simmons PA-C [address] [place] [phone] Specialist Thoracic Surgery 05/11/23 documented as of this encounter
--- OUTSIDE RECORDS SUMMARY | 2024-09-10 10:01 | XMS_ITS | Encounter Summary ---
Author Organization [facility] Address [address] [place] [address] Care Team Providers Care See Supervisor Name Role Phone Pancho Boswell MD Primary Care Provider + Kevin Simmons PA-C Unavailable [phone] Encounter Details Date Type Department Care Team Description 07/10/2023 Teacher Physically Impaired Report Medical Records [address] [place] [address] Dain Escudero MD Social History Tobacco Use Types Packs/Day Years [...] on filedocumented in this encounter Care Teams See Supervisor Relationship Specialty Start Date End Date Pancho Boswell MD [address] [place], [place] [phone] PCP - General Internal Medicine 07/11/22 Kevin Simmons PA-C [address] [place] [phone] Specialist Thoracic Surgery 05/11/23 documented as of this encounter
--- OUTSIDE RECORDS SUMMARY | 2024-09-10 10:01 | XMS_ITS | Encounter Summary ---
Author Organization [facility] Address [address] [place] [address] Care Team Providers Care Appraiser Land Name Role Phone Eron Sargent MD Primary Care Provider [phone] Eboni Last Md, MD Primary Care Provider Unavailable Eron Sargent MD Primary Care Provider [phone] Mckenzie Alejandre MD Primary Care Provider [phone] Pancho Boswell MD Primary Care Provider + Kevin Simmons PA-C Unavailable [phone] Encounter Details Date Type Department Care Team Description 02/26/2018 Release of Information Medical Records [address] [place] [id number] Abstract, Provider Social History Tobacco Use Types Packs/Day Years [...] on filedocumented in this encounter Care Teams Appraiser Land Relationship Specialty Start Date End Date Eron Sargent MD [address] [place] [phone] PCP - General Internal Medicine 03/16/14 02/06/19 Eboni Last MD, [address] [place] [phone] PCP - General Internal Medicine 02/07/19 03/05/19 Eron Sargent MD [address] [place] [address] PCP - General Internal Medicine 03/06/19 07/05/22 Mckenzie Alejandre MD [address] [place] [phone] PCP - General Internal Medicine 07/06/22 07/10/22 Pancho Boswell MD [address] [place] [address] [phone] PCP - General Internal Medicine 07/11/22 Kevin Simmons PA-C [address] [place] [phone] Specialist Thoracic Surgery 05/11/23 documented as of this encounter
--- OUTSIDE RECORDS SUMMARY | 2024-09-10 10:01 | XMS_ITS | Encounter Summary ---
Author Organization [facility] Address [address] [place] [address] Care Team Providers Care Shade Maker Name Role Phone Pancho Boswell MD Primary Care Provider + Kevin Simmons PA-C Unavailable [phone] Reason for Visit * Reason Onset Date Comments Letter 12/06/2022 Encounter Details Date Type Department Care Team Description 12/06/2022 Telephone Adult Medicine [facility] [address] [place] [phone] Pancho Boswell MD [address] [place] [address] [phone] Letter Social History Tobacco Use Types Packs/Day Years [...] suspected to have Coronavirus/COVID-19? No / Unsure 12/07/2022 4:20 PM EDT documented as of this encounter Miscellaneous Notes * Telephone Encounter - Funmi Jarvis - 12/12/2022 5:02 PM EDT Letter mailed. 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 Her last PE was done 08/17/22 by Lea Aguero. Specific notations needed in body of letter: Date of PE and signature of provider Date needed for completion: N/A When completed: Mailed to their home at: [address] [address] documented in this encounter Plan of Treatment Not on file documented as of this encounter Visit Diagnoses Not on filedocumented in this encounter Care Teams Shade Maker Relationship Specialty Start Date End Date Pancho Boswell MD [address] [place] [address] PCP - General Internal Medicine 07/11/22 Kevin Simmons PA-C [address] [place] [phone] Specialist Thoracic Surgery 05/11/23 documented as of this encounter
--- OUTSIDE RECORDS SUMMARY | 2024-09-10 10:01 | XMS_ITS | Encounter Summary ---
Author Organization [facility] Address [address] [place] [address] Care Team Providers Care Care Management Coordinator Name Role Phone Pancho Boswell MD Primary Care Pr ovider Encounter Details Date Type Department Care Team (Late st Contact Info) Description 08/15/2024 Telephone Adult Medicine [facility] [address] [place] [phone] Pancho Boswell MD [address] [place], [place] [phone] Social History Tobacco Use Types Packs/Day Years Used Date Smoking Tobacco: Every Day Smokeless Tobacco: Never Alcohol Use Standard Drinks/Week Comments Yes 0 [...] Record ed Within the last 3 months, ho w many times did you visit the emergency [...] care for your loved ones. For example, child development instructor or elderly care for an older adult? [...] Orientation Straight 05/13/2024 4: 27 PM EST documented as of this encounter Progress Notes * Eunice Ospina - 08/18/2024 9:58 AM EDT Patient claim was denied. This request has received an Unfavorable outcome. An eAppeal may be available. View the bottom of the request to see if an eAppeal is available alongwith any additional information provided by [employer]. I will look into the appeal process for you. CaseId:[id number];Status:Denied;Review Type:Prior Auth;Appeal Information: Attention:MEMBER APPEALS [facility] [address] [facility] [address],[place], [place],[address] ; Important - Please read the below note on eAppeals: Please reference the denial letter for information on the rights for an appeal, rationale for the denial, and how to submit an appeal including if any information is needed to support the appeal. Note about urgent situations - Generally, an urgent situation is one which, in the opinion of the provider, the health of the patient may be in serious j eopardy or may experience pain that cannot be adequately controlled while waiting for a decision onthe appeal.; * Eunice Ospina - 08/15/2024 3:59 PM EDT MOOSE CARSON (Oseguera: [id number]) form thumbnail [employer] is reviewing your PA request and will respond within 24 hours for Medicaid or up to72 hours for non-Medicaid plans, based on the required timeframe determined by state or federal regulations. To check for an update later, open this request from your dashboard. * Eunice Ospina - 08/15/2024 3:51 PM EDT Request submitted to [employer] waiting on response. [employer] Oseguera Code [id number] tirzepatide, weight loss, (Zepbound) 2.5 mg/0.5 mL injection [[id number]] documented in this encounter Plan of Treatment Upcoming Encounters Date Type Department Care Team (Late st Contact Info) Description 11/18/2024 8:15 AM EDT Consult Orthopedic Surgery - [address] [phone] Anton Baker, DPM [address] [place] [address] 11/21/2024 8:30 AM EDT Office Visit Adult Medicine [facility] [address] [place] [phone] Pancho Boswell MD [address] [place] [phone] documented as of this encounter Visit Diagnoses Not on filedocumented in this encounter Additional Health Concerns Assessment Noted Time PHQ-9 Depression Total Score: 0 06/30/19 25 8:34 PM EDT documented as of this encounter Care Teams Care Management Coordinator Relationship Specialty Start Date End Date Pancho Boswell MD [address] [place] [phone] PCP - General 03/21/23 documented as of this encounter
--- OUTSIDE RECORDS SUMMARY | 2024-09-10 10:02 | XMS_ITS | Encounter Summary ---
Author Organization [facility] Address [address] [place] [address] Care Team Providers Care Environmental Studies Program Director Name Role Phone Pancho Boswell MD Primary Care Provider + Kevin Simmons PA-C Unavailable [phone] Encounter Details Date Type Department Care Team Description 01/03/2024 Pt. Non Urgent Medical Question Adult Medicine [facility] [address] [place] [phone] Pancho Boswell MD [address] [place] [phone] Social History Tobacco Use Types Packs/Day Years [...] encounter Miscellaneous Notes * Telephone Encounter - Gloria Alexander L.P.N. - 01/04/2024 1:04 PM EDTFrom: Moose Carson To: Wilmer Boswell Sent: 01/03/2024 5:34 PM EDT Subject: Mammogram per visit 05/24/23 I have not received a call or an appt regarding this mammogram requested by Lea. documented in this encounter Plan of Treatment Not on file documented as of this encounter Visit Diagnoses Not on filedocumented in this encounter Care Teams Environmental Studies Program Director Relationship Specialty Start Date End Date Pancho Boswell MD [address] [place] [address] PCP - General Internal Medicine 07/11/22 Kevin Simmons PA-C [address] [phone] Specialist Thoracic Surgery 05/11/23 documented as of this encounter
[2024-09-10 10:10] LABS: MANUAL DIFF FLAG NO
[2024-09-10 10:15] LABS: Basophils Percent Auto 0.4 % (0-2); Eosinophils Absolute Auto 0.2 X10*3/uL (0.0-0.4); Eosinophils Percent Auto 1.4 % (0-4); Hematocrit 38.9 % (37.0-47.0); Imm Gran Abs Auto 0.06 X10*3/uL (0.00-0.03); Imm Gran Pct Auto 0.6 % (0.0-0.4); Lymphocytes Absolute Auto 2.7 X10*3/uL (1.2-4.9); Lymphocytes Percent Auto 25.2 % (20-40); Mean Corpuscular HGB Conc 33.4 g/dl (31.0-35.0); Mean Corpuscular Hemoglobin 33.2 pg (27.0-33.0); Mean Corpuscular Volume 99.2 fL (80.0-98.0); Mean Platelet Volume 8.7 fL (9.4-12.3); Monocytes Absolute Auto 0.7 X10*3/uL (0.1-1.2); Monocytes Percent Auto 6.9 % (2-11); Neutrophils Percent Auto 65.5 % (45-73); Platelet Count 421 X10*3/uL (160-400); Red Blood Count 3.92 X10*6/uL (4.20-5.50); Red Cell Distribution Width 14.6 % (11.0-16.0); White Blood Count 10.7 X10*3/uL (4.8-10.8)
[2024-09-10 10:49] LABS: Erythrocyte Sedimentation Rate 34 MM/HR (0-20)
[2024-09-10 12:08] LABS: Alanine Aminotransferase 24 U/L (0-31); Alkaline Phosphatase 70 U/L (39-117); Anion Gap 11 (12-20); Aspartate Amino Transferase 22 U/L (5-31); Bilirubin Total 0.7 mg/dL (0.0-1.0); Blood Urea Nitrogen 15 mg/dL (9-16); Carbon Dioxide 29 mmol/L (22-29); Chloride 105 mmol/L (96-108); Estimated Glomerular Filt Rate > 60; Glucose Random 94 mg/dL (60-115); Potassium 3.3 mmol/L (3.3-5.1); Sodium 142 mmol/L (135-145)
== END 2024-09-10 08:45 | disposition home or self-care (01) ==
LOC: HO.HMGCLDS 08:44
PROVIDERS: PCP Family Medicine; Visit Provider Student in an Organized Health Care Education/Training Program
DX: L40.50 Arthropathic psoriasis, unspecified (principal); Z79.631 Long term (current) use of antimetabolite agent
CPT/HCPCS: 36415; 80053; 85025; 85652; 86140

== ENCOUNTER 2024-09-17 07:19 | Outpatient (AMB) | payer OTHER, SELFPAY ==
--- OUTSIDE RECORDS SUMMARY | 2024-09-17 07:21 | XMS_ITS | Clinical Summary ---
Author Organization [facility] [address] [place] [address] [place] [address] VI[place] [phone] Phone Care Team Providers Care Lubrication Supervisor Name Role Phone Pancho Boswell MD [...] day. To lower extremity 60 g 1 Active semaglutide (Ozempic) 0.25 mg or 0.5 mg (2 mg/3 mL) injection penIndications:Se sudeep obesity (BMI 35.0-39.9) with comorbidity (CMS/[facility] V24, CMS/[facility] V28),Prediabetes Inject 0.25 mg under the skin every 7 (seven) days. 2 mL Active cephalexin (KEFLEX) 500 mg capsule Take 1 capsule (500 mg total) by mouth 2 (two) times a day. 025 2024 Discontinued tirzepatide, weight loss, (Zepbound) 2.5 mg/0.5 mL injectionIndicati ons:Severe obesity (BMI 35.0-39.9) with comorbidity (CMS/HCC V24, CMS/[facility] V28) Inject 0.5 mL (2.5 mg total) under the skin every 7 (seven) days. 2 mL 025 2024 Discontinued tirzepatide (MOUNJARO) 2.5 mg/0.5 mL injectionIndicati ons:Prediabetes,S evere obesity (BMI 35.0-39.9) with comorbidity (CMS/HCC V24, CMS/[facility] V28) Inject 0.5 mL (2.5 mg total) under the skin every 7 (seven) days. 2 mL 025 2024 Discontinued(R eorder) tirzepatide (MOUNJARO) 2.5 mg/0.5 mL injectionIndicati ons:Prediabetes,S evere obesity (BMI 35.0-39.9) with comorbidity (CMS/HCC V24, CMS/[facility] V28) Inject 0.5 mL (2.5 mg total) under the skin every 7 (seven) days. 2 mL 025 2024 Discontinued Active Problems Problem Noted Date Diagnosed Date [...] quadrant 02/12 Liver cyst 02/12/2019 Psoriatic arthritis ([facility]/HCC V24, CMS/HCC V28) 0 11/14/2013 Assessment & [...] Care Team Description 08/25/2024 Telephone Adult Medicine [address] [phone] Pancho Boswell MD 08/19/2024 1:42 PM EDT - 08/19/2024 11:59 PM EDT Hospital Encounter [address], [place] [phone] Left ankle pain, unspecified chronicity; Achilles tendinitis of left lower extremity Discharge Disposition: Home or Self Care 08/19/2024 1:30 PM EDT Office Visit Adult [address] [phone] Lea Aguero PA Wound of left leg, initial encounter (Primary Dx); Encounter for removal of sutures; Left ankle pain, unspecified chronicity; Achilles tendinitis of left lower extremity; Prediabetes; Severe obesity (BMI 35.0-39.9) with comorbidity (CMS/HCC V24, CMS/HCC V28) 08/18/2024 Telephone Adult Medicine [address] [phone] Pancho Boswell MD 08/18/2024 Telephone Adult [address] [phone] Pacnho Boswell MD Medication Problem (zepbound) 08/15/2024 Telephone Adult [address] [phone] Pancho Boswell MD 07/18/2024 9:00 AM EDT Ancillary Procedure [facility] [address] [facility] [address] [place] [phone] Systolic murmur 07/11/2024 8:30 AM EDT Consult Vascular Surgery - [place] [address] [facility] [address] [place] [phone] Leo Allred MD Venous insufficiency of both lower extremities (Primary Dx); Venous stasis dermatitis of both lower extremities; Varicose veins of both lower extremities with inflammation 06/30/2024 8:30 AM EDT Office Visit Obstetrics and Gynecology - [address] [phone] Renae Morales MD Encounter for gynecological examination [...] Pfizer Covid-19 Bivalent, Or iginal + Ba.1 (Non-[employer] Bivalent) 02/15/2022 Pneumococcal conjugate 13 va lent (Prevnar 13, PCV13) 2mo and older 05/21/2015 Pneumococcal polysaccharide 23 valent (Pneumovax 23) 2yo and older 07/22/2014 Td Tetanus diptheria (Tdvax) 7yo and older 12/21 Zoster recombinant (Shingrix) 19yo and older Surgical History Surgery Date Site/Laterality Comments CHOLECYSTECTOMY PROCEDURE: HISTORICAL CHOLECYSTECTOMY EXCISION BENIGN SKIN LESION TRUNK / ARM / LEG 01/2019 PROCEDURE: OR EXCISION TUMOR SOFT TISSUE BACK/FLANK SUBQ <3CM; [...] care for your loved ones. For example, director of early childhood education or elderly care for an older adult? [...] 8:15 AM EDT Consult Orthopedic Surgery - [place] [address] [phone] Anton Bakre, MILDR[place] [address] [address] 11/21/2024 8:30 AM EDT Office Visit Adult Medicine [address] [phone] Pancho Boswell MD [address] [place] [address] Health Maintenance Due Date Last Done Comments [...] Comments XR ANKLE 3+ VIEWS LEFT Routine 1:56 PM EDT Left ankle pain, unspecified [...] EDT Small posterior calcaneal spur. POS - [id number] -------- FINAL REPORT -------- Dictated By: Celia Rios Dictated Date: 08/20/2024 01:08 ET Assigned Physician: Celia Rios Reviewed and Electronically Signed By: Celia Rios Signed Date: 08/20/2024 01:12 ET Workstation ID: [id number] Transcribed By: Self Edit Transcribed Date: 08/20/2024 [...] IMPRESSION: Small posterior calcaneal spur. POS - [id number] -------- FINAL REPORT -------- Dictated By: Celia Rios Dictated Date: 08/20/2024 01:08 ET Assigned Physician: Celia Rios Reviewed and Electronically Signed By: Celia Rios Signed Date: 08/20/2024 01:12 ET Workstation ID: [id number] Transcribed By: Self Edit Transcribed Date: 08/20/2024 01:08 ET us Lea DE OLIVEIRA IMG XR PROCEDURES Final Resul t * (ABNORMAL) TRANSTHORACIC ECHOCARDIOGRAM (TTE) COMPLETE (07/18/2024 9:43 AM EDT) Left Atrium Minor [place] 5.0 cm CV PACS Left Atrium Major [place] 4.3 cm CV PACS [place] Area Sys [...] Volume 100 mL CV PACS MV Deceleration Phel[place] 3.9 m/s2 CV PACS E Wave Deceleration [...] Details Overall the study quality was adequate. us Pancho Boswell MD CV ECHO PROCEDUR ES Final Result * HPV genotype (06/30/2024 10:50 AM EDT) HPV Type 16 Negative Negative LAB MICROBIOLOGY METHOD 07/03/2024 1:48 PM EDT [facility] HPV Type 18/45 Negative Negative LAB MICROBIOLOGY METHOD 07/03/2024 1:48 PM EDT [facility] HPV Type 16,18, and others Valid LAB MICROBIOLOGY METHOD 07/03/2024 1:48 PM EDT [facility] Brushing/Spatula Cervix uteri structure / Unknown 06/30/2024 10:50 AM EDT 07/01/2024 5:59 AM EDT us Renae Morales MD LAB MOLECULAR DIAGNOSTICS O RDERABLES Final Result Performing Organization Address [facility]/ZIP Co de Phone Number [facility] [address] [place] [address], * (ABNORMAL) HPV with reflex genotype (06/30/2024 10:50 AM EDT) HPV Positive( A) Negative LAB MICROBIOLOGY METHOD 07/01/2024 5:15 PM EDT [facility] Brushing/Spatula Cervix uteri structure / Unknown 06/30/2024 10:50 AM EDT 07/01/2024 5:59 AM EDT us Renae Morales MD LAB MOLECULAR DIAGNOSTICS O RDERABLES Final Result Performing Organization Address City/[facility]/ZIP Co de Phone Number [facility] [address] [place] [address], [place] [phone] * (ABNORMAL) Pap smear (06/30/2024 10:50 AM EDT) Interpretation Low grade squamous intraepithelial lesion(A) 07/03/2024 1:37 PM EDT [facility] General Categorization Epithelial cell abnormality, see interpretation 07/03/2024 1:37 PM EDT [facility] Specimen Adequacy Satisfactory for evaluation, endocervical/garza sformation zone component present 07/03/2024 1:37 PM EDT [facility] Pap Methodology Liquid Based Pap Test 07/03/2024 1:37 PM EDT [facility] Disclaimer The Pap test is a screening test which carries an inherent false negative rate. These test results should be correlated with the patient's clinical findings and history. This Pap test was processed using an automated screening system. Technical cytopathology services provided by [facility], at [address] [place] [id number] (CLIA # [id number]/Eulalio Taylor MD, Financial Sales Representative.) 07/03/2024 1:37 PM EDT [facility] Console Pap Interpretation Reported 07/03/2024 1:37 PM EDT [facility] Brushing/Spatula Cervix uteri structure / Unknown 06/30/2024 10:50 AM EDT 06/30/2024 10:50 AM EDT us Renae Morales MD LAB CYTOLOGY ORDERABLES Fin al Result [facility]) [facility] [address] [place] [address], * Hepatitis C antibody (05/07/2024 9:50 AM EST) Hepatitis C Antibody Negative Negative LAB CHEMISTRY METHOD 05/07/2024 12:56 PM EST [facility] Blood Venous blood specimen / Unknown Venipuncture / Unknown 05/07/2024 9:50 AM EST 05/07/2024 9:50 AM EST Pancho Boswell MD LAB BLOOD ORDERA BLES Final Result [facility] [address] [place] [address], [place] [phone] * Lipid panel with reflex to direct LDL (05/07/2024 9:50 AM EST) Cholesterol 146 0 - 200 mg/dL LAB CHEMISTRY METHOD 05/07/2024 12:17 PM [facility] Triglycerides 78 0 - 150 mg/dL LAB CHEMISTRY METHOD 05/07/2024 12:17 PM [facility] HDL 54 >=40 mg/dL LAB CHEMISTRY METHOD 05/07/2024 12:17 PM [facility] LDL Calculated 76 0 - 100 mg/dL LAB CHEMISTRY METHOD 05/07/2024 12:17 PM [facility] VLDL Cholesterol Osvaldo 15.6 mg/dL LAB CHEMISTRY METHOD 05/07/2024 12:17 PM [facility] Non HDL Chol. (LDL+VLDL) 92 <145 mg/dL LAB CHEMISTRY METHOD 05/07/2024 12:17 PM [facility] Chol/HDL Ratio 2.7 0.0 - 4.4 LAB CHEMISTRY METHOD 05/07/2024 12:17 PM [facility] Blood Venous blood specimen / Unknown Venipuncture / Unknown 05/07/2024 9:50 AM EST 05/07/2024 9:50 AM EST us Pancho Boswell MD LAB BLOOD ORDERA BLES Final Result [facility] [address] [place] [address], * Comprehensive metabolic panel (05/07/2024 9:50 AM EST) Sodium 141 133 - 145 mmol/L LAB CHEMISTRY METHOD 05/07/2024 12:17 PM [facility] Potassium 4.2 3.5 - 5.5 mmol/L LAB CHEMISTRY METHOD 05/07/2024 12:17 PM [facility] Chloride 106 96 - 110 mmol/L LAB CHEMISTRY METHOD 05/07/2024 12:17 PM [facility] CO2 31 21 - 32 mmol/L LAB CHEMISTRY METHOD 05/07/2024 12:17 PM [facility] Anion Gap 4 3 - 11 LAB CHEMISTRY METHOD 05/07/2024 12:17 PM [facility] Glucose 93 70 - 100 mg/dL LAB CHEMISTRY METHOD 05/07/2024 12:17 PM [facility] BUN 12 5 - 25 mg/dL LAB CHEMISTRY METHOD 05/07/2024 12:17 PM [facility] Creatinine 0.93 0.50 - 1.10 mg/dL LAB CHEMISTRY METHOD 05/07/2024 12:17 PM [facility] eGFR 69 >=60 mL/min/1. 73m2 LAB CHEMISTRY METHOD 05/07/2024 12:17 PM [facility] Comment:Calculation based on the??Chronic Kidney Disease Epidemiology Collaboration (CKD-EPI) equation refit??without adjustment for race. BUN/Creatinine Ratio 12.9 LAB CHEMISTRY METHOD 05/07/2024 12:17 PM [facility] Calcium 9.2 8.5 - 10.5 mg/dL LAB CHEMISTRY METHOD 05/07/2024 12:17 PM [facility] AST (SGOT) 16 10 - 42 unit/L LAB CHEMISTRY METHOD 05/07/2024 12:17 PM [facility] ALT (SGPT) 23 10 - 60 unit/L LAB CHEMISTRY METHOD 05/07/2024 12:17 PM [facility] Alkaline Phosphatase 79 42 - 121 unit/L LAB CHEMISTRY METHOD 05/07/2024 12:17 PM [facility] Total Protein 6.8 6.0 - 8.0 g/dL LAB CHEMISTRY METHOD 05/07/2024 12:17 PM EST [facility] Albumin 3.5 3.2 - 5.0 g/dL LAB CHEMISTRY METHOD 05/07/2024 12:17 PM [facility] Total Bilirubin 0.3 0.0 - 1.4 mg/dL LAB CHEMISTRY METHOD 05/07/2024 12:17 PM [facility] Blood Venous blood specimen / Unknown Venipuncture / Unknown 05/07/2024 9:50 AM EST 05/07/2024 9:50 AM EST Pancho Boswell MD LAB BLOOD ORDERA BLES Final Result [facility] [address] [place] [address], [place] [phone] * MG Mammo Digital Diagnostic w Alfonzo [...] mammogram BILATERAL in 1 year. Mammo Location: [facility], [address] [place] [address], [address], . -------- FINAL REPORT -------- Dictated By: Eula Chowdary Dictated Date: 03/05/2024 08:44 ET Assigned Physician: Eula Chowdary Reviewed and Electronically Signed By: Eula Chowdary Signed Date: 03/05/2024 09:29 ET Workstation ID: [id number] Transcribed By: Self Edit Transcribed Date: 03/05/2024 [...] and MLO projections. Computer aided detection with [employer] AI 3D 3.1 was employed. ??Ultrasound evaluation [...] CCand MLO projections. Computer aided detection with [employer] AI 3D 3.1was employed. Ultrasound evaluation of [...] mammogram BILATERAL in 1 year. Mammo Location: [facility], [address] [place] [address], [id number], . -------- FINAL REPORT -------- Dictated By: Eula Chowdary Dictated Date: 03/05/2024 08:44 ET Assigned Physician: Eula Chowdary Reviewed and Electronically Signed By: Eula Chowdary Signed Date: 03/05/2024 09:29 ET Workstation ID: [id number] Transcribed By: Self Edit Transcribed Date: 03/05/2024 08:50 ET Pancho Boswell MD IMG BI PROCEDURE S Final Result from Last 3 Months or Most Recently Relevant to Health Maintenance Insurance [facility] Care Teams Lubrication Supervisor Relationship Specialty Start Date End Date Pancho Boswell MD [address] [place] [id number] PCP - General 03/21/23
--- NOTE | 2024-09-17 07:23 | MHC.OFFVIS ---
Vital Signs 09/17/24 07:29 Height 5 ft 4 in Weight 226 lb 13.69 oz BMI 38.9 BP 142/90 H Blood Pressure Location Lt brachial Position Sitting Pulse 67 Pulse Source Pulse Oximeter Pulse Oximetry (%) 97 Oxygen Delivery Method Room Air Intake Visit Reasons: PsA Intake Note: Patient presents for PsA follow up. Allergies No Known Allergies Allergy (Verified 09/17/24 07:28) Medication List - Last Reconciled 09/17/24 by Yen Keita MD albuterol sulfate 90 mcg/actuation (ProAir HFA) inhalation atorvastatin 20 mg PO DAILY cephalexin 500 mg PO BID clotrimazole 1% appl topical DAILY clotrimazole-betamethasone 1-0.05 % appl topical DAILY cyclobenzaprine 5 mg PO BEDTIME PRN docusate sodium 100 mg PO DAILY folic acid 1 mg PO DAILY Humira Pen (adalimumab) 40 mg (0.8 mL) subcut QWEEK NS hydrochlorothiazide 25 mg PO DAILY losartan 50 mg PO DAILY methotrexate sodium 20 mg (8 x 2.5 mg) PO QWEEK trospium ER 60 mg PO DAILY HPI Comments Details: Patient is a 64-year-old female with hypertension, hyperlipidemia, peripheral venous disease with recurrent cellulitis, psoriasis complicated by psoriatic arthritis and polyarticular osteoarthritis here today for follow up Interval History: Patient last seen 05/05/[address] Escudero. At that time she was following up for her psoriasis and psoriatic arthritis on Humira and methotrexate. She continues to complain of back pain, knee pain and overall stiffness. No recent flare-up of her cellulitis. No changes were made to her medication at that time as she was examined to be in remission Today, She complains of whole body aches and pains and she is concerned that the Humira and methotrexate is not working Rheumatologic History: Initial history: This is a 61-year-old female with a past medical history of psoriasis (almost all her life) and psoriatic arthritis diagnosed in 2013, dyslipidemia who presents for evaluation of psoriatic arthritis. The condition started in 2013. She used to see , she was on sulfasalazine which failed, she was then started on Humira and was on it for a few years then it stopped working. She was then switched to Cosentyx and was on it for about 1 year then it stopped working. She was switched to Tremfya last year and was working well for her skin and joints. However her media theorist and author of changed and she is due to see a new media theorist and author of today. Her last dose of Tremfya was in October 2021. Currently patient states that she has migrating joint pains from her right index finger to her left index finger and sometimes her thumb. 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 She has low back pain worse with any activity. Back pain is worse in the morning associated with morning stiffness lasting 3-4 hours. Does not wake patient up from sleep. She takes Tylenol almost every day for generalized pain which provided some relief. She mentions having recurrent cellulitis of her lower extremities, she was prescribed cephalexin by Dermatology, has been on it for 3 months and hers cellulitis resolved Current Rheumatology Medication(s): Humira 40mg SC every 2 weeks Methotrexate 20mg PO weekly Folic acid 1mg PFSH Medical History (Updated 09/17/24 @ 16:23 by Yen Keita MD) Polyarticular osteoarthritis Recurrent cellulitis of lower extremity Dyslipidemia Psoriasis Psoriatic arthritis Surgical History Hx of removal of cyst H/O breast biopsy Hx of cholecystectomy Family History Father No problems noted. 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 Review of Systems Const Details: Review of Systems Constitutional: Denies fever, chills, weight loss ENT: Denies vision changes, eye pain or eye redness, dental caries, dry mouth GI: Denies nausea, vomiting, diarrhea, abdominal pain, change in BM Pulm: Denies SOB, BRAND, hemoptysis, wheezing Cards: Denies chest pain, palpitations Skin: Denies Raynaud's, rash, nail changes, photosensitivity, PRODUCTION HAND: Denies headaches, weakness, paresthesias, recurrent falls MSK: as per HPI All other systems reviewed and are unremarkable except noted above Physical Exam Vital Signs: Last Vital Signs Pulse 67 09/17/24 07:29 BP 142/90 H 09/17/24 07:29 Pulse Ox 97 09/17/24 07:29 Oxygen Delivery Method Room Air 09/17/24 07:29 BMI result Body Mass Index 38.9 Vital signs reviewed Physical Examination CONSTITUITIONAL Patient alert and cooperative. Well appearing and in no apparent painful distress HEENT Conjunctiva and sclera clear. ?Pupils equal round and reactive to light. ?No lymphadenopathy. ? CHEST/RESPIRATORY SYSTEM Normal respiratory effort and able to speak in complete sentences. ?Clear to auscultation bilaterally. ?No crackles, rales, rhonchi, wheezes heard. CARDIAC SYSTEM Regular rate and rhythm. ?S1 and S2 heard no murmurs. ?Radial pulses intact bilaterally MSK Hands: ?Able to make a fist. No synovitis noted to the MCPs, PIPs or DIPs. ?No tenderness to palpation of these joints. Prominent herbeden's nodes and lora's nodes Wrists: ?Full range of motion at the wrists without pain. ?No tenderness to palpation or synovitis noted to the wrists. Elbows: Full range of motion without pain. No tenderness, weakness, swelling, increased warmth or erythema. Shoulders: Full range of active range of motion without pain. No tenderness, weakness, swelling, increased warmth or erythema. Knees: ?Full range of motion. ?No tenderness, swelling, increased warmth or erythema.?Crepitations felt Ankles: Full range of motion. ?No tenderness, swelling, increased warmth or erythema.? Feet: ?Negative squeeze test. ?No tenderness to palpation or swelling of the MTPs. Tender points:?No tenderness to palpation of the bilateral trapezius, supraspinatus, greater trochanters, anterior costochondral junctions, bilateral gluteal areas, bilateral suboccipital muscle insertions SKIN Skin intact without rashes. Results Reviewed Results Reviewed: Laboratory Tests 09/10/24 09/10/24 08:32 08:52 WBC 10.7 RBC 3.92 L Hgb 13.0 Hct 38.9 Plt Count 421 H ESR 34 H Sodium 142 Potassium 3.3 Chloride 105 Carbon Dioxide 29 BUN 15 Creatinine 0.79 AST 22 ALT 24 Alkaline Phosphatase 70 C-Reactive Protein 0.40 Laboratory Tests 03/13/24 06:48 Hepatitis A IgM Ab Nonreactive Hep Bs Antigen Negative Hep Bs Antibody NONREACTIVE Hep B Core Total Ab Nonreactive Hepatitis C Ab (EIA) Nonreactive TB Test (T-Spot) Com Negative Assessment & Plan Assessment & Plan (1) Psoriatic arthritis: Comment: dx 2013 failed SSZ 2ry nonresponse to humira Failed Cosentyx Tremfya since 2020, then discontinued when her media theorist and author of changed Humira restarted 01/2022 advanced to weekly 09/12 MTX added 05/15 increased to 20 mg 03/2023 Code(s): L40.50 - Arthropathic psoriasis, unspecified Category: Medical Plan: #PsA Patient is a 64-year-old female with psoriasis complicated by psoriatic arthritis here today for follow up. Psoriatic arthritis currently in remission on Humira and methotrexate. Plan - Humira 40mg SC every week - Methotrexate 20mg PO weekly - Folic acid 1mg daily - RTC 4 months - Labs before visit: CBC, CMP, ESR, CRP, hep panel and T spot (2) Polyarticular osteoarthritis: Code(s): M15.9 - Polyosteoarthritis, unspecified Category: Medical Plan: #Polyarticular OA Patient with polyarticular osteoarthritis affecting hands, knees, spine. Discussed this with patient at length including the difference between psoriatic arthritis and polyarticular osteoarthritis. Recommended conservative management for this including topical diclofenac 4 times a day (3) Encounter for monitoring of adalimumab therapy: Code(s): Z51.81 - Encounter for therapeutic drug level monitoring; Z79.899 - Other group home (current) drug therapy Category: Medical Plan: #Long-term Use of TNF Inhibitors: Humira Discussed with the patient the benefits and risks of TNF inhibitors for the management of the rheumatic condition Benefits include reduce pain, maintenance of remission and reduction of flares as well as ?progression of the disease Risks include injection sites/infusion reactions, serious infections (such as bacterial infections, opportunistic infections), malignancy, delaminating syndromes, autoimmune phenomena, CHF exacerbations, palmar plantar psoriasis and cytopenias Recommended rotating injection sites, and holding medication during and for up to 1 week after resolution of a febrile illness or open skin wound (4) Encounter for methotrexate monitoring: Code(s): Z51.81 - Encounter for therapeutic drug level monitoring; Z79.631 - FDC (current) use of antimetabolite agent Plan: #Long-term Current Use of Methotrexate Discussed with patient the benefits and risks of methotrexate for managing their rheumatic condition Benefits include reduced pain, reduced mortality, maintenance of remission and reduction of flares Risks include oral ulcers, photosensitivity, hepatotoxicity, hematologic toxicity, pneumonitis, flu-like symptoms (especially day after administration), nodulosis, lymphomas ? Limit alcohol and avoid Bactrim ? Monitoring: ?CBC, BMP, LFTs every 3-4 months and hepatitis serologies as needed Plan I spent 30 minutes reviewing the record and labs, taking a history, examining the patient, discussing the treatment plan, ordering diagnostic work up and documenting in the medical record Orders: Orders Complete Blood Count Auto Diff 4 Months L40.50 - Arthropathic psoriasis, unspecified C Reactive Protein 4 Months L40.50 - Arthropathic psoriasis, unspecified T Spot TB 4 Months L40.50 - Arthropathic psoriasis, unspecified Comprehensive Met. Panel 4 Months L40.50 - Arthropathic psoriasis, unspecified Erythrocyte Sedimentation Rate 4 Months L40.50 - Arthropathic psoriasis, unspecified Hepatitis A,B,C Profile 4 Months L40.50 - Arthropathic psoriasis, unspecified Medications: Changed From methotrexate sodium 20 mg (8 x 2.5 mg) PO QWEEK 96 tabs 1RF L40.50 - Arthropathic psoriasis, unspecified To methotrexate sodium 20 mg (8 x 2.5 mg) PO QWEEK 104 tabs 1RF 90 days L40.50 - Arthropathic psoriasis, unspecified Refilled Humira Pen (adalimumab) 40 mg (0.8 mL) subcut QWEEK 4 ea 5RF NS L40.50 - Arthropathic psoriasis, unspecified folic acid 1 mg PO DAILY 90 tabs 1RF Coding Level of Care Code Est Pt Level 4 (92330) Complex EM visit Add On G2211 Diagnoses Psoriatic arthritis L40.50 Polyarticular osteoarthritis M15.9 Encounter for monitoring of adalimumab therapy Z51.81; Z79.899 Encounter for methotrexate monitoring Z51.81; Z79.631
[2024-09-17 07:29] VITALS: BP 142/90; PULSE 67; O2SAT 97; BMI 38.9
== END 2024-09-17 08:17 | disposition home or self-care (01) ==
LOC: HO.RHE 07:19
PROVIDERS: PCP Family Medicine; Visit Provider Student in an Organized Health Care Education/Training Program
DX: L40.50 Arthropathic psoriasis, unspecified (principal); M15.9 Polyosteoarthritis, unspecified; Z51.81 Encounter for therapeutic drug level monitoring; Z79.899 Other long term (current) drug therapy; Z79.631 Long term (current) use of antimetabolite agent
CPT/HCPCS: 99214; G2211

== ENCOUNTER → 2024-09-17 07:19 | Outpatient (BNVA) | payer OTHER, SELFPAY | PROVIDERS: PCP Family Medicine; Visit Provider Student in an Organized Health Care Education/Training Program | DX: L40.50 Arthropathic psoriasis, unspecified (principal); M15.9 Polyosteoarthritis, unspecified; Z51.81 Encounter for therapeutic drug level monitoring; Z79.631 Long term (current) use of antimetabolite agent; Z79.899 Other long term (current) drug therapy | CPT/HCPCS: 99212 ==

== ENCOUNTER 2025-01-08 08:49 | Outpatient (REF) | payer OTHER, SELFPAY ==
--- OUTSIDE RECORDS SUMMARY | 2025-01-08 10:06 | XMS_ITS | Clinical Summary ---
Author Organization [facility] [address] [place] [address] [place] [address] VICTORIA Fuller [phone] Phone Care Team Providers Care Unmanned Equipment Operator Name Role Phone Pancho Boswell MD [...] DO NOT DRIVE WHILE ON THIS MEDICATION 3 Active folic acid (FOLVITE) 1 mg tablet Take 1 Tablet by mouth daily. 3 Active methotrexate 2.5 mg tablet Take 1 tablet (2.5 mg total) by mouth every 7 days. Six tablets weekly Active losartan (COZAAR) 50 mg tabletIndications: Primary hypertension Take 1 tablet (50 mg total) by mouth 1 (one) time each day. 90 each 1 5 Active atorvastatin (LIPITOR) 20 mg tabletIndications: Mixed hyperlipidemia Take 1 tablet (20 mg total) by mouth at bedtime. 90 tablet 1 5 Active hydroCHLOROthiazid e (HYDRODIURIL) 25 mg tabletIndications: Primary hypertension Take 1 tablet (25 mg total) by mouth 1 (one) time each day. 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 To lower extremity 60 g 1 5 Active dulaglutide (TRULICITY) 1.5 mg/0.5 mL pen injector injectionIndicatio ns:Prediabetes,Sev ere obesity (BMI 35.0-39.9) with comorbidity (CMS/HCC V24, CMS/HCC V28) Inject 0.5 mL (1.5 mg total) under the skin every 7 (seven) days. 6 mL 5 025 Active Active Problems Problem Noted Date Diagnosed Date [...] Severe obesity (BMI 35.0-39. 9) with comorbidity ([facility] V24, [facility] V28) 09/05/2022 Assessment & Plan (08/18/2024 5:43 [...] quadrant 02/12 Liver cyst 02/12/2019 Psoriatic arthritis ([facility] V24, [facility] V28) 0 11/14/2013 Assessment & Plan (05/07/2024 [...] Encounters Date Type Department Care Team Description 11/18/2024 8:15 AM EDT Consult Orthopedic Surgery - [address] [phone] Anton Baker, DPM Left ankle pain, unspecified chronicity; Achilles tendinitis of left lower extremity 10/23/2024 Telephone Adult Medicine [address] [phone] Pancho Boswell MD 10/15/2024 Telephone Adult Medicine [address] [phone] Pancho Boswell MD from Last 3 Months Immunizations Name Administration Dates Next Due Influenza Quadravalent, MDCK , 0.5ml, preservative free (Flucelvax) 6mo and older 02/12/2023 Influenza trivalent, 0.5mL, preservative free (Fluarix; FluLaval; Fluzone) ages 6mo and older (Afluria) 3 years and older 01/03/2024 Influenza trivalent, with pr eservative (Fluzone; Afluria) 6mo and older 03/15/2021,04/20/2014 Copiun Covid-19 Bivalent, Or iginal + Ba.1 (Non-US Trademark [employer] Bivalent) 02/15/2022 Pneumococcal conjugate 13 va lent (Prevnar 13, PCV13) 2mo and older 05/21/2015 Pneumococcal polysaccharide 23 valent (Pneumovax 23) 2yo and older 07/22/2014 Td Tetanus diptheria (Tdvax) 7yo and older 12/21 Zoster recombinant (Shingrix) 19yo and older Surgical History Surgery Date Site/Laterality Comments CHOLECYSTECTOMY PROCEDURE: HISTORICAL CHOLECYSTECTOMY EXCISION BENIGN SKIN LESION TRUNK / ARM / LEG 01/2019 PROCEDURE: [place] EXCISION TUMOR SOFT TISSUE BACK/FLANK SUBQ <3CM; [...] getting things needed for daily living? No 03/09/202 5 Has the lack of transportati on kept [...] for your loved ones. For example, child welfare assistant or elderly care for an older adult? [...] Ectopic Multiple Livin g Live Births 1 1 1 15 Date Outcome GA Total Labor Labor/2nd/3rd Weight Sex Type Anes PTL Jaclyn A1 A5 Name Clin Term Last Filed Vital Signs Vital Sign Reading Time Taken Comments Blood Pressure 114/86 08/19/2024 1:06 PM EDT Pulse 81 08/19/2024 1:06 PM EDT Temperature 36.8 C (98.2 F) 08/19/2024 1:06 PM EDT Respiratory Rate 17 08/19/2024 1:06 PM EDT Oxygen Saturation - - Inhaled Oxygen Concentration - - Weight 99.8 kg (220 lb) 08/19/2024 1:06 PM EDT Height 162.6 cm (5' 4 ) 08/19/2024 1:06 PM EDT Body Mass Index 37.76 08/19/2024 1:06 PM EDT Plan of Treatment Health Maintenance Due Date Last Done Comments Pneumococcal Vaccine: 50+ Years (3 of 3 - PCV20 or PCV21) 05/21/2020 05/21/2015, 07/22/2014 RSV Immunization Adult Patients (1 - Risk 60-74 years 1-dose series) 2020 HIV Screening 04/01/2022 Zoster Vaccines (2 of 2) 04/16/2024 02/20/2024 COVID-19 Vaccine (5 - Pfizer risk 2023- season) 2024 04/13/2024, 03/16/2021, 06/14/2020, Additional history exists Influenza Vaccine (#1) 2024 , 02/12/2023, 03/15/2021, Additional history exists Hypertension/CHF/CAD Annual BMP Blood Test 05/07/2025 05/07/2024, 08/23/2023 Social Influencers of Health Screening 06/29/2025 06/29/2024 Colorectal Cancer Screening: FIT-DNA (Cologuard) 08/31/2025 Postponed from 04/01/2022 (Supply/Drug Shortage) Breast Cancer Screening 03/05/2026 03/05/20, 02/15/2023, 02/14/2022, Additional history exists Cholesterol Screening (Lipid Panel) 05/07/2029 05/07/2024, 12/21/2023 Cervical Cancer Screening: HPV 06/30/2029 06/30/2024, 06/30/2024 DTaP,Tdap,and Td Vaccines (2 - Td or Tdap) 12/21/2030 12/21/2020 Hepatitis C Screening Completed 05/07/2024 Depression Screening Completed 06/29/2024 HIB Vaccines Aged Out No longer eligi [...] Procedure Name Priority Date/Time Associated Diagnosis Comments HPV WITH REFLEX GENOTYPE Routine 06/30/2024 10:50 [...] Recently Relevant to Health Maintenance Results * (ABNORMAL) HPV with reflex genotype (06/30/2024 10:50 AM EDT) HPV Positive( A) Negative LAB MICROBIOLOGY METHOD 07/01/2024 5:15 PM EDT [facility] Brushing/Spatula Cervix uteri structure / Unknown 06/30/2024 10:50 AM EDT 07/01/2024 5:59 AM EDT us Renae Morales MD LAB MOLECULAR DIAGNOSTICS O RDERABLES Final Result [facility] [address] [place] [address], * Hepatitis C antibody (05/07/2024 9:50 AM EST) Hepatitis C Antibody Negative Negative LAB CHEMISTRY METHOD 05/07/2024 12:56 PM EST [facility] Blood Venous blood specimen / Unknown Venipuncture / Unknown 05/07/2024 9:50 AM EST 05/07/2024 9:50 AM EST us Pancho Boswell MD LAB BLOOD ORDERA BLES Final Result [facility] [address] [place] [address], [place] [phone] * Lipid panel with reflex to direct LDL (05/07/2024 9:50 AM EST) Cholesterol 146 0 - 200 mg/dL LAB CHEMISTRY METHOD 05/07/2024 12:17 PM EST [facility] Triglycerides 78 0 - 150 mg/dL LAB CHEMISTRY METHOD 05/07/2024 12:17 PM EST [facility] HDL 54 >=40 mg/dL LAB CHEMISTRY METHOD 05/07/2024 12:17 PM EST [facility] LDL Calculated 76 0 - 100 mg/dL LAB CHEMISTRY METHOD 05/07/2024 12:17 PM EST [facility] VLDL Cholesterol Osvaldo 15.6 mg/dL LAB CHEMISTRY METHOD 05/07/2024 12:17 PM EST [facility] Non HDL Chol. (LDL+VLDL) 92 <145 mg/dL LAB CHEMISTRY METHOD 05/07/2024 12:17 PM EST [facility] Chol/HDL Ratio 2.7 0.0 - 4.4 LAB CHEMISTRY METHOD 05/07/2024 12:17 PM [facility] Blood Venous blood specimen / Unknown Venipuncture / Unknown 05/07/2024 9:50 AM EST 05/07/2024 9:50 AM EST us Pancho Boswell MD LAB BLOOD ORDERA BLES Final Result [facility] [address] [place] [address], [place] [phone] * Comprehensive metabolic panel (05/07/2024 9:50 AM EST) Sodium 141 133 - 145 mmol/L LAB CHEMISTRY METHOD 05/07/2024 12:17 PM [facility] Potassium 4.2 3.5 - 5.5 mmol/L LAB CHEMISTRY METHOD 05/07/2024 12:17 PM [facility] Chloride 106 96 - 110 mmol/L LAB CHEMISTRY METHOD 05/07/2024 12:17 PM [facility] CO2 31 21 - 32 mmol/L LAB CHEMISTRY METHOD 05/07/2024 12:17 PM [facility] Anion Gap 4 3 - 11 LAB CHEMISTRY METHOD 05/07/2024 12:17 PM [facility] Glucose 93 70 - 100 mg/dL LAB CHEMISTRY METHOD 05/07/2024 12:17 PM [facility] BUN 12 5 - 25 mg/dL LAB CHEMISTRY METHOD 05/07/2024 12:17 PM [facility] Creatinine 0.93 0.50 - 1.10 mg/dL LAB CHEMISTRY METHOD 05/07/2024 12:17 PM [facility] eGFR 69 >=60 mL/min/1. 73m2 LAB CHEMISTRY METHOD 05/07/2024 12:17 PM [facility] Comment:Calculation based on the Chronic Kidney Disease Epidemiology Collaboration (CKD-EPI) equation refit without adjustment for race. BUN/Creatinine Ratio 12.9 LAB CHEMISTRY METHOD 05/07/2024 12:17 PM [facility] Calcium 9.2 8.5 - 10.5 mg/dL LAB CHEMISTRY METHOD 05/07/2024 12:17 PM [facility] AST (SGOT) 16 10 - 42 unit/L LAB CHEMISTRY METHOD 05/07/2024 12:17 PM [facility] ALT (SGPT) 23 10 - 60 unit/L LAB CHEMISTRY METHOD 05/07/2024 12:17 PM [facility] Alkaline Phosphatase 79 42 - 121 unit/L LAB CHEMISTRY METHOD 05/07/2024 12:17 PM [facility] Total Protein 6.8 6.0 - 8.0 g/dL LAB CHEMISTRY METHOD 05/07/2024 12:17 PM [facility] Albumin 3.5 3.2 - 5.0 g/dL LAB CHEMISTRY METHOD 05/07/2024 12:17 PM [facility] Total Bilirubin 0.3 0.0 - 1.4 mg/dL LAB CHEMISTRY METHOD 05/07/2024 12:17 PM [facility] Blood Venous blood specimen / Unknown Venipuncture / Unknown 05/07/2024 9:50 AM EST 05/07/2024 9:50 AM EST Pancho Boswell MD LAB BLOOD ORDERA BLES Final Result [facility] [address] [place] [address], [place] [phone] * MG Mammo Digital Diagnostic w Alfonzo bilat (03/05/2024 8:22 AM EST) Anatomical Region Laterality Modality Breast Bilateral Mammography 03/05/2024 8:44 AM EST Impressions 03/05/2024 9:29 AM EST Stable mammographic appearance of the breasts. No evidence of malignancy is seen. Unremarkable left breast ultrasound. A negative mammogram in the presence of a clinically suspicious palpable abnormality does not preclude the possibility of malignancy or alter the indications for biopsy. BI-RADS: Category 1: Negative RECOMMENDATION(S): 1: Routine screening mammogram BILATERAL in 1 year. Mammo Location: [facility], [address] [place] [address], [id number], . -------- FINAL REPORT -------- Dictated By: Eula Chowdary Dictated Date: 03/05/2024 08:44 ET Assigned Physician: Eula Chowdary Reviewed and Electronically Signed By: Eula Chowdary Signed Date: 03/05/2024 09:29 ET Workstation ID: [id number] Transcribed By: Self Edit Transcribed Date: 03/05/2024 08:50 ET Narrative 03/05/2024 9:29 AM EST EXAM: (MG MAMMO DIGITAL DIAGNOSTIC W ALFONZO BILATERAL; LEFT BREAST ULTRASOUND EXAM DATE: 03/05/2024 8:05 AM HISTORY: follow up from ct COMPARISON: Mammograms dating back to 02/09/2021 with most recent of 02/15/2023. CT lung screening low dose 05/11/2023. TECHNIQUE: Bilateral digital breast tomosynthesis was performed in the CC and MLO projections. Computer aided detection with [employer] AI 3D 3.1 was employed. Ultrasound evaluation of the lower outer [...] CCand MLO projections. Computer aided detection with [employer] AI 3D 3.1was employed. Ultrasound evaluation of [...] mammogram BILATERAL in 1 year. Mammo Location: [facility], [address] [place] [address], [id number], . -------- FINAL REPORT -------- Dictated By: Eula Chowdary Dictated Date: 03/05/2024 08:44 ET Assigned Physician: Eula Chowdary Reviewed and Electronically Signed By: Eula Chowdary Signed Date: 03/05/2024 09:29 ET Workstation ID: [id number] Transcribed By: Self Edit Transcribed Date: 03/05/2024 08:50 ET Pancho Boswell MD IMG BI PROCEDURE S Final Result from Last 3 Months or Most Recently Relevant to Health [place] [id number] [facility] Care Teams Unmanned Equipment Operator Relationship Specialty Start Date End Date Pancho Boswell MD [address] [place] [phone] PCP - General 03/21/23
--- OUTSIDE RECORDS SUMMARY | 2025-01-08 10:06 | XMS_ITS | Clinical Summary ---
Author Organization [facility] Address [address] [place] [address] Care Team Providers Care Sludge Filtration Operator Name Role Phone Pancho Boswell MD [...] 73 08/29/2023 8:57 AM EDT Temperature 36.8 C (98.2 F) 08/29/2023 8:57 AM EDT Respiratory Rate - - Oxygen Saturation 97% [...] Tdap) 12/22/2020 12/21/2020 COVID-19 Vaccine (4 - 2024-2 6 season) 2024 03/16/2021, 06/14/2020, 05/24/2020 Influenza Vaccine (#1) 2024 3, 03/15/2021, 04/20/2014 Pneumococcal Vaccine (3 of 3 [...] age to complete this topic Care Teams Sludge Filtration Operator Relationship Specialty Start Date End Date Pancho Boswell MD [address] [place] [address] PCP - General 03/21/23
--- OUTSIDE RECORDS SUMMARY | 2025-01-08 10:07 | XMS_ITS ---
Author Name [facility] Organization Unknown Care Team Organization Name Specialty Phone Email Start Date End Da te [facility] ARTI VIDAL Primary Care [email or web address] 09/29/2022 4 [facility] ANGELICA BOYLE Primary Care 02/28/2022 4
[2025-01-08 10:14] LABS: MANUAL DIFF FLAG NO
[2025-01-08 10:25] LABS: Hematocrit 37.9 % (37.0-47.0); Hemoglobin 12.5 g/dl (12.0-16.0); Imm Gran Abs Auto 0.07 X10*3/uL (0.00-0.03); Imm Gran Pct Auto 0.7 % (0.0-0.4); Lymphocytes Absolute Auto 2.9 X10*3/uL (1.2-4.9); Mean Corpuscular HGB Conc 33.0 g/dl (31.0-35.0); Mean Corpuscular Hemoglobin 32.6 pg (27.0-33.0); Mean Corpuscular Volume 99.0 fL (80.0-98.0); NRBC Abs Auto 0.000 X10*3/uL (0.0-0.012); NRBC Pct Auto 0.0 /100WBC (0.0-0.2); Platelet Count 485 X10*3/uL (160-400); Red Blood Count 3.83 X10*6/uL (4.20-5.50); White Blood Count 10.5 X10*3/uL (4.8-10.8)
[2025-01-08 10:51] LABS: Alanine Aminotransferase 15 U/L (0-31); Albumin Level 3.8 g/dL (3.5-5.0); Alkaline Phosphatase 61 U/L (39-117); Anion Gap 9 (12-20); Aspartate Amino Transferase 24 U/L (5-31); Blood Urea Nitrogen 14 mg/dL (9-16); Calcium 9.2 mg/dL (8.4-10.2); Carbon Dioxide 30 mmol/L (22-29); Chloride 108 mmol/L (96-108); Estimated Glomerular Filt Rate > 60; Potassium 4.2 mmol/L (3.3-5.1); Sodium 143 mmol/L (135-145); Total Protein 6.8 g/dL (6.5-8.0)
[2025-01-08 11:39] LABS: HBS Num1 0.36 mIU/mL (0-7.99); HBc Num1 0.57 S/CO (0.00-0.79); HBsAGNum1 0.55 S/CO (0.00-0.99); Hepatitis A Antibody IgM 0.12 Index (0-0.79); Hepatitis B Surface Antigen Negative (Negative); ~HepC Num1 0.09 S/CO (0.00-0.79); ~Hepatitis A Antibody IgM Nonreactive (Nonreactive); ~Hepatitis B Surface Antibody NONREACTIVE (Nonreactive); ~Hepatitis C Antibody Nonreactive (Nonreactive)
[2025-01-13 03:08] LABS: TS Negative Control Passed; TS Panel A 1; TS Panel B 0; TS Positive Control Passed; TSpotTB Negative (Negative)
== END 2025-01-08 08:50 | disposition home or self-care (01) ==
LOC: HO.HMGCLDS 08:49
PROVIDERS: PCP Family Medicine; Visit Provider Student in an Organized Health Care Education/Training Program
DX: Z11.59 Encounter for screening for other viral diseases (principal); Z11.1 Encounter for screening for respiratory tuberculosis; L40.50 Arthropathic psoriasis, unspecified
CPT/HCPCS: 36415; 80053; 85025; 85652; 86140; 86481; 86704; 86706; 86709; 86803; 87340

== ENCOUNTER 2025-01-20 07:33 | Outpatient (AMB) | payer OTHER, SELFPAY ==
--- OUTSIDE RECORDS SUMMARY | 2025-01-20 07:37 | XMS_ITS | Clinical Summary ---
Author Organization [facility] [address] [place] [address] [place] [address] [place] [phone] Phone Care Team Providers Care Tooth Cutter Name Role Phone Pancho Boswell MD Primary [...] Severe obesity (BMI 35.0-39. 9) with comorbidity ([facility] V24, [facility] V28) 09/05/2022 Assessment & Plan (08/18/2024 5:43 [...] Psoriatic arthritis ([facility] V24, [facility] V28) 0 11/14/2013 Assessment & Plan (05/07/2024 [...] 8:15 AM EDT Consult Orthopedic Surgery - [place] [address] [phone] Anton Baker, DPVince Left ankle pain, unspecified chronicity; Achilles tendinitis of left lower extremity 10/23/2024 Telephone Adult Medicine [address] [phone] Pancho Boswell MD from Last 3 Months Immunizations Immunization Administration Dates Next Due Influenza Quadravalent, MDCK , 0.5ml, preservative free (Flucelvax) 6mo and older 02/12/2023 Influenza trivalent, 0.5mL, preservative free (Fluarix; FluLaval; Fluzone) ages 6mo and older (Afluria) 3 years and older 01/03/2024 Influenza trivalent, with pr eservative (Fluzone; Afluria) 6mo and older 03/15/2021,04/20/2014 Pfizer Covid-19 Bivalent, Or iginal + Ba.1 (Non-US Trademark [email or web address] Bivalent) 02/15/2022 Pneumococcal conjugate 13 va lent (Prevnar 13, PCV13) 2mo and older 05/21/2015 Pneumococcal polysaccharide 23 valent (Pneumovax 23) 2yo and older 07/22/2014 Td Tetanus diptheria (Tdvax) 7yo and older 12/21 Zoster recombinant (Shingrix) 19yo and older Surgical History Surgery Date Site/Laterality Comments CHOLECYSTECTOMY PROCEDURE: HISTORICAL CHOLECYSTECTOMY EXCISION BENIGN SKIN LESION TRUNK / ARM / LEG 01/2019 PROCEDURE: NE EXCISION TUMOR SOFT TISSUE BACK/FLANK SUBQ <3CM; [...] for your loved ones. For example, child protective services social worker or elderly care for an older adult? [...] Date Recorded What is your living situation? Unrecognized valu e 06/29/2024 Comments No Sex and Gender Information [...] LAB MICROBIOLOGY METHOD 07/01/2024 5:[address] [facility] Brushing/Spatula Cervix uteri structure / Unknown 06/30/2024 10:50 AM EDT 07/01/2024 5:59 AM EDT Renae Morales MD LAB MOLECULAR DIAGNOSTICS O RDERABLES Final Result [facility] [address] [place] [address], * Hepatitis C antibody (05/07/2024 9:50 AM EST) Hepatitis C Antibody Negative Negative LAB CHEMISTRY METHOD 05/07/2024 12:[address] [facility] Blood Venous blood specimen / Unknown Venipuncture / Unknown 05/07/2024 9:50 AM EST 05/07/2024 9:50 AM EST us Oyinkansola Oyenike Ogundipe MD LAB BLOOD ORDERA BLES Final Result [facility] [address] [place] [address], [place] [phone] * Lipid panel with reflex to direct LDL (05/07/2024 9:50 AM EST) Cholesterol 146 0 - 200 mg/dL LAB CHEMISTRY METHOD 05/07/2024 12:[address] [facility] Triglycerides 78 0 - 150 mg/dL LAB CHEMISTRY METHOD 05/07/2024 12:[address] [facility] HDL 54 >=40 mg/dL LAB CHEMISTRY METHOD 05/07/2024 12:[address] [facility] LDL Calculated 76 0 - 100 mg/dL LAB CHEMISTRY METHOD 05/07/2024 12:[address] [facility] VLDL Cholesterol Osvaldo 15.6 mg/dL LAB CHEMISTRY METHOD 05/07/2024 12:[address] [facility] Non HDL Chol. (LDL+VLDL) 92 <145 mg/dL LAB CHEMISTRY METHOD 05/07/2024 12:[address] [facility] Chol/HDL Ratio 2.7 0.0 - 4.4 LAB CHEMISTRY METHOD 05/07/2024 12:17 PM [facility] Blood Venous blood specimen / Unknown Venipuncture / Unknown 05/07/2024 9:50 AM EST 05/07/2024 9:50 AM EST Pancho Boswell MD LAB BLOOD ORDERA BLES Final Result [facility] [address] [place] [address], [place] [phone] * Comprehensive metabolic panel (05/07/2024 9:50 AM EST) Sodium 141 133 - 145 mmol/L LAB CHEMISTRY METHOD 05/07/2024 12:17 PM [facility] Potassium 4.2 3.5 - 5.5 mmol/L LAB CHEMISTRY METHOD 05/07/2024 12:17 PM [facility] Chloride 106 96 - 110 mmol/L LAB CHEMISTRY METHOD 05/07/2024 12:17 PM [facility] CO2 31 21 - 32 mmol/L LAB CHEMISTRY METHOD 05/07/2024 12:17 PM [facility] Anion Gap 4 3 - 11 LAB CHEMISTRY METHOD 05/07/2024 12:17 PM [facility] Glucose 93 70 - 100 mg/dL LAB CHEMISTRY METHOD 05/07/2024 12:17 PM [facility] BUN 12 5 - 25 mg/dL LAB CHEMISTRY METHOD 05/07/2024 12:17 PM [facility] Creatinine 0.93 0.50 - 1.10 mg/dL LAB CHEMISTRY METHOD 05/07/2024 12:17 PM [facility] eGFR 69 >=60 mL/min/1. 73m2 LAB CHEMISTRY METHOD 05/07/2024 12:17 PM [facility] Comment:Calculation based on the Chronic Kidney Disease Epidemiology Collaboration (CKD-EPI) equation refit without adjustment for race. BUN/Creatinine Ratio 12.9 LAB CHEMISTRY METHOD 05/07/2024 12:17 PM [facility] Calcium 9.2 8.5 - 10.5 mg/dL LAB CHEMISTRY METHOD 05/07/2024 12:17 PM [facility] AST (SGOT) 16 10 - 42 unit/L LAB CHEMISTRY METHOD 05/07/2024 12:17 PM [facility] ALT (SGPT) 23 10 - 60 unit/L LAB CHEMISTRY METHOD 05/07/2024 12:17 PM [facility] Alkaline Phosphatase 79 42 - 121 unit/L LAB CHEMISTRY METHOD 05/07/2024 12:[address] [facility] Total Protein 6.8 6.0 - 8.0 g/dL LAB CHEMISTRY METHOD 05/07/2024 12:[address] [facility] Albumin 3.5 3.2 - 5.0 g/dL LAB CHEMISTRY METHOD 05/07/2024 12:[address] [facility] Total Bilirubin 0.3 0.0 - 1.4 mg/dL LAB CHEMISTRY METHOD 05/07/2024 12:[address] [facility] Blood Venous blood specimen / Unknown Venipuncture / Unknown 05/07/2024 9:50 AM EST 05/07/2024 9:50 AM EST Pancho Boswell MD LAB BLOOD ORDERA BLES Final Result [facility] [address] [place] [address], * MG Mammo Digital Diagnostic w Alfonzo [...] mammogram BILATERAL in 1 year. Mammo Location: [facility], [address] [place] [address], [phone], . -------- FINAL REPORT -------- Dictated By: Eula Chowdary Dictated Date: 03/05/2024 08:44 ET Assigned Physician: Eula Chowdary Reviewed and Electronically Signed By: Eula Chowdary Signed Date: 03/05/2024 09:29 ET Workstation ID: [id number] Transcribed By: Self Edit Transcribed Date: 03/05/2024 [...] and MLO projections. Computer aided detection with [employer] AI 3D 3.1 was employed. Ultrasound evaluation [...] CCand MLO projections. Computer aided detection with [employer] AI 3D 3.1was employed. Ultrasound evaluation of [...] mammogram BILATERAL in 1 year. Mammo Location: [facility], [address] [place] [address], [address], . -------- FINAL REPORT -------- Dictated By: Eula Chowdary Dictated Date: 03/05/2024 08:44 ET Assigned Physician: Eula Chowdary Reviewed and Electronically Signed By: Eula Chowdary Signed Date: 03/05/2024 09:29 ET Workstation ID: [id number] Transcribed By: Self Edit Transcribed Date: 03/05/2024 08:50 ET Pacnho Boswell MD IMG BI PROCEDURE S Final Result from Last 3 Months or Most Recently Relevant to Health Maintenance Insurance [facility] Care Teams Tooth Cutter Relationship Specialty Start Date End Date Pancho Boswell MD [address] [place] [address] PCP - General 03/21/23
--- OUTSIDE RECORDS SUMMARY | 2025-01-20 07:37 | XMS_ITS | Clinical Summary ---
Author Organization [facility] Address [address] [place] [address] Care Team Providers Care Credit Charge Authorizer Name Role Phone Pancho Boswell MD Primary [...] age to complete this topic Care Teams Credit Charge Authorizer Relationship Specialty Start Date End Date Pancho Boswell MD [address] [facility] [place] [address] PCP - General 03/21/23
--- NOTE | 2025-01-20 07:41 | MHC.OFFVIS ---
Vital Signs 01/20/25 07:48 Height 5 ft 4 in Weight 218 lb 11.177 oz BMI 37.5 BP 142/100 H Blood Pressure Location Lt brachial Position Sitting Pulse 78 Pulse Source Pulse Oximeter Pulse Oximetry (%) 98 Oxygen Delivery Method Room Air Intake Visit Reasons: PsA Intake Note: Patient presents for PsA follow up. Allergies No Known Allergies Allergy (Verified 01/20/25 07:47) Medication List - Last Reconciled 01/20/25 by Yen Keita MD albuterol sulfate 90 mcg/actuation (ProAir HFA) inhalation atorvastatin 20 mg PO DAILY cephalexin 500 mg PO BID clotrimazole 1% appl topical DAILY clotrimazole-betamethasone 1-0.05 % appl topical DAILY cyclobenzaprine 5 mg PO BEDTIME PRN docusate sodium 100 mg PO DAILY folic acid 1 mg PO DAILY Humira Pen (adalimumab) 40 mg (0.8 mL) subcut QWEEK NS hydrochlorothiazide 25 mg PO DAILY losartan 50 mg PO DAILY methotrexate sodium 20 mg (8 x 2.5 mg) PO QWEEK 90 days trospium ER 60 mg PO DAILY HPI Comments Details: Patient is a 64-year-old female with hypertension, hyperlipidemia, peripheral venous disease with recurrent cellulitis, psoriasis complicated by psoriatic arthritis and polyarticular osteoarthritis here today for follow up Interval History: Patient last seen 09/17/24 with me - On Humira 40 mg SC every week, methotrexate 20 mg every week and folic acid 1 mg daily - She continues to complain of back pain, knee pain and overall stiffness. No recent flare-up of her cellulitis. - No changes were made to her medication at that time as she was examined to be in remission Today, - On Humira 40 mg SC every week, methotrexate 20 mg every week and folic acid 1 mg daily - Mother recently - Still does not feel the humira is working - Feels pain all over and stiffness - Main joints affected: hips, knees, and feet - Hands overall well Rheumatologic History: dx 2013 failed SSZ 2ry nonresponse to humira Failed Cosentyx Tremfya since 2020, then discontinued when her credit control administrator changed Humira restarted 01/2022 advanced to weekly 09/12 MTX added 05/15 increased to 20 mg 03/2023 Initial history: This is a 61-year-old female with a past medical history of psoriasis (almost all her life) and psoriatic arthritis diagnosed in 2013, dyslipidemia who presents for evaluation of psoriatic arthritis. The condition started in 2013. She used to see , she was on sulfasalazine which failed, she was then started on Humira and was on it for a few years then it stopped working. She was then switched to Cosentyx and was on it for about 1 year then it stopped working. She was switched to Tremfya last year and was working well for her skin and joints. However her credit control administrator changed and she is due to see a new credit control administrator today. Her last dose of Tremfya was in October 2021. Currently patient states that she has migrating joint pains from her right index finger to her left index finger and sometimes her thumb. 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 She has low back pain worse with any activity. Back pain is worse in the morning associated with morning stiffness lasting 3-4 hours. Does not wake patient up from sleep. She takes Tylenol almost every day for generalized pain which provided some relief. She mentions having recurrent cellulitis of her lower extremities, she was prescribed cephalexin by Dermatology, has been on it for 3 months and hers cellulitis resolved Current Rheumatology Medication(s): Humira 40mg SC every week Methotrexate 20mg PO weekly Folic acid 1mg PFSH Medical History (Updated 01/20/25 @ 08:29 by Yen Keita MD) Polyarticular osteoarthritis Recurrent cellulitis of lower extremity Dyslipidemia Psoriasis Psoriatic arthritis Surgical History Hx of removal of cyst H/O breast biopsy Hx of cholecystectomy Family History Father No problems noted. 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 Review of Systems Const Details: Review of Systems Constitutional: Denies fever, chills, weight loss ENT: Denies vision changes, eye pain or eye redness, dental caries, dry mouth GI: Denies nausea, vomiting, diarrhea, abdominal pain, change in BM Pulm: Denies SOB, BRAND, hemoptysis, wheezing Cards: Denies chest pain, palpitations Skin: Denies Raynaud's, rash, nail changes, photosensitivity, SOLUTIONS DELIVERY CONSULTANT: Denies headaches, weakness, paresthesias, recurrent falls MSK: as per HPI All other systems reviewed and are unremarkable except noted above Physical Exam Exam Exam: Vital signs reviewed Physical Examination CONSTITUITIONAL Patient alert and cooperative. Well appearing and in no apparent painful distress MSK Hands Right Hand: Able to make a fist. No swelling or tenderness to palpation of the MCPs, PIPs or DIPs. Left Hand: Able to make a fist. No swelling or tenderness to palpation of the MCPs, PIPs or DIPs. Herbedens nodes noted bilaterally Squarring of the 1st CMC joints bilaterally Wrists Right Wrist: Full ROM to flexion and extension. No swelling or TTP Left Wrist: Full ROM to flexion and extension. No swelling or TTP Elbows Right Elbow: Full ROM. No swelling or TTP. No TTP of the medial epicondyle. TTP of the lateral epicondyle Left Elbow: Full ROM. No swelling or TTP. No TTP of the medial epicondyle. TTP of the lateral epicondyle Shoulders Right shoulder: Full ROM. No swelling noted. No TTP of the AC joint. No TTP of the subacromial bursa. No TTP of the posterior shoulder Left shoulder: Full ROM. No swelling noted. No TTP of the AC joint. No TTP of the subacromial bursa. No TTP of the posterior shoulder Knees Right knee: Full ROM. No swelling noted. No TTP of the knee joint line. No TTP of pes anserine bursa Left knee: Full ROM. No swelling noted. No TTP of the knee joint line. No TTP of pes anserine bursa. Crepitations felt bilaterally Ankles Right ankle: Good ankle dorsiflexion and plantar flexion. No swelling. No TTP of the ankle joint Left ankle: Good ankle dorsiflexion and plantar flexion. No swelling. No TTP of the ankle joint Feet Right foot: Negative squeeze test Left foot: Negative squeeze test Tender points? No tenderness to palpation of the bilateral trapezius, supraspinatus, anterior costochondral junctions, bilateral suboccipital muscle insertions SKIN No rashes Vital Signs: BMI result Body Mass Index 37.5 Results Reviewed Results Reviewed: Laboratory Tests 09/10/24 01/08/25 08:52 09:04 WBC 10.5 RBC 3.83 L Hgb 12.5 Hct 37.9 Plt Count 485 H ESR 59 H Sodium 143 Potassium 4.2 D Chloride 108 Carbon Dioxide 30 H BUN 14 Creatinine 0.85 AST 24 ALT 15 C-Reactive Protein 0.40 1.31 H Laboratory Tests 01/08/25 09:04 Hepatitis A IgM Ab Nonreactive Hep Bs Antigen Negative Hep Bs Antibody NONREACTIVE Hep B Core Total Ab Nonreactive Hepatitis C Ab (EIA) Nonreactive TB Test (T-Spot) Com Negative Laboratory Tests 01/10/22 12:43 Rheumatoid Factor < 15.0 Cycl Citrul Peptide IgG 25 H ARACELI Screen NEGATIVE Assessment & Plan Assessment & Plan (1) Psoriatic arthritis: Comment: dx 2013 failed SSZ 2ry nonresponse to humira Failed Cosentyx Tremfya since 2020, then discontinued when her credit control administrator changed Humira restarted 01/2022 advanced to weekly 09/12 MTX added 05/15 increased to 20 mg 03/2023 Code(s): L40.50 - Arthropathic psoriasis, unspecified Category: Medical Plan: #PsA Patient is a 64-year-old female with psoriasis complicated by psoriatic arthritis here today for follow up. Despite the Humira and methotrexate, she continues to have overall stiffness Her inflammatory markers slightly increased when compared to her last visit. We will trial switching her medication to a ALEX inhibitor since she has failed IL 23 inhibitors and TNF inhibitors in the past Given her complaint of hair loss we will also hold the methotrexate Plan - Stop Humira and methotrexate - Start Rinvoq 15mg daily - RTC 4 months - Labs before visit: CBC, CMP, ESR, CRP (2) Polyarticular osteoarthritis: Code(s): M15.9 - Polyosteoarthritis, unspecified Category: Medical Plan: #Polyarticular OA Patient with polyarticular osteoarthritis affecting hands, knees, spine. Discussed this with patient at length including the difference between psoriatic arthritis and polyarticular osteoarthritis. Recommended conservative management for this including topical diclofenac 4 times a day We will add Tylenol and gabapentin Plan - Tylenol 1000mg bid - Gabapentin 100mg nightly (3) Long-term current use of upadacitinib: Code(s): Z79.69 - termite treater helper (current) use of other immunomodulators and immunosuppressants Plan: #Long-term Use of ALEX inhibitors: Xeljanz (Tofacitinib)/ Rinvoq (Upadacitinib)/ Olumiant (Baricitinib) Discussed with patient the benefits and risks of ALEX inhibitors for the management of the rheumatic condition Benefits include reduce pain, maintenance of remission and reduction of flares Risks include thromboembolic events, skin cancer and nonmelanoma skin cancers, other forms of cancer, cardiovascular alcohol and mortality Advise patient that they are to hold the medication and for up to 1 week after a febrile illness or an open skin wound Plan I spent 30 minutes reviewing the record and labs, taking a history, examining the patient, discussing the treatment plan, ordering diagnostic work up and documenting in the medical record Orders: Orders Complete Blood Count Auto Diff 4 Months Z79.899 - Other termination clerk (current) drug therapy C Reactive Protein 4 Months Z79.899 - Other mcfp (current) drug therapy Erythrocyte Sedimentation Rate 4 Months Z79.899 - Other termination clerk (current) drug therapy Comprehensive Met. Panel 4 Months Z79.899 - Other termination clerk (current) drug therapy Medications: New gabapentin 100 mg PO BEDTIME 90 caps 1RF M15.9 - Polyosteoarthritis, unspecified upadacitinib ER (Rinvoq) 15 mg PO DAILY 30 tabs 5RF L40.50 - Arthropathic psoriasis, unspecified acetaminophen (Tylenol Extra Strength) 1,000 mg (2 x 500 mg) PO .BID 180 tabs 1RF pain 90 days M15.9 - Polyosteoarthritis, unspecified Discontinued Humira Pen (adalimumab) Discontinued Reason: Doctor's Order 40 mg (0.8 mL) subcut QWEEK 4 ea 5RF NS L40.50 - Arthropathic psoriasis, unspecified folic acid Discontinued Reason: Doctor's Order 1 mg PO DAILY 90 tabs 1RF methotrexate sodium Discontinued Reason: Doctor's Order 20 mg (8 x 2.5 mg) PO QWEEK 90 days 104 tabs 1RF L40.50 - Arthropathic psoriasis, unspecified Coding Level of Care Code Est Pt Level 4 (92967) Complex EM visit Add On G2211 Diagnoses Psoriatic arthritis L40.50 Polyarticular osteoarthritis M15.9 Long-term current use of upadacitinib Z79.69
[2025-01-20 07:48] VITALS: BP 142/100; PULSE 78; O2SAT 98; BMI 37.5
== END 2025-01-20 08:31 | disposition home or self-care (01) ==
LOC: HO.RHES 07:34
PROVIDERS: PCP Family Medicine; Visit Provider Student in an Organized Health Care Education/Training Program
DX: L40.50 Arthropathic psoriasis, unspecified (principal); M15.9 Polyosteoarthritis, unspecified; Z79.69 Long term (current) use of other immunomodulators and immunosuppressants
CPT/HCPCS: 99214

== ENCOUNTER → 2025-01-20 07:33 | Outpatient (BNVA) | payer OTHER, SELFPAY | PROVIDERS: PCP Family Medicine; Visit Provider Student in an Organized Health Care Education/Training Program | DX: I10 Essential (primary) hypertension (principal); M15.9 Polyosteoarthritis, unspecified; L40.50 Arthropathic psoriasis, unspecified; Z79.69 Long term (current) use of other immunomodulators and immunosuppressants; E78.5 Hyperlipidemia, unspecified; I73.9 Peripheral vascular disease, unspecified | CPT/HCPCS: 99212 ==